=== PATIENT | female | born 1940 | race Caucasian/White ===

== ENCOUNTER → 2017-12-09 15:53 | Outpatient (CLI) | payer MEDICARE, OTHER, SELFPAY | PROVIDERS: Family Provider Family Medicine; PCP Family Medicine; Visit Provider Ophthalmology | DX: H18.891 Other specified disorders of cornea, right eye (principal) | CPT/HCPCS: 87252 ==

== ENCOUNTER → 2018-04-28 14:49 | Outpatient (CLI) | payer MEDICARE, OTHER, SELFPAY ==
[2018-04-28 16:01] LABS: Absolute Lymphocyte Count 1.95 X10^3/ul (0.83-4.51); Absolute Neutrophil Count 3.8 X10^3/uL (2.0-7.7); Basophil# 0.05 X10^3/uL; Basophil% 0.8 % (0-1); Eosinophil# 0.24 X10^3/uL; Eosinophils% 3.7 % (0-5); Hematocrit 42.2 % (37-47); Hemoglobin 13.7 g/dl (12.0-15.0); Lymphocyte # 1.95 X10^3/ul (4.0); Mean Corp Hgb Conc 32.5 g/gl (32-36); Mean Corpuscular Hgb 31.1 pg (27.0-32.0); Mean Corpuscular Volume 95.7 fL (81-99); Monocyte# 0.46 X10^3/uL; Monocyte% 7.1 % (0-10); Neutrophil # 3.78 X10^3/uL (2.7-7.7); Neutrophil % 58.1 % (47-70); Platelet Count 175 K/mm3 (150-450); RBC Distribution Width CV 14.1 % (11.6-14.6); RBC Distribution Width SD 47.4 fl (35.1-43.9); Red Blood Count 4.41 M/mm3 (4.2-5.4); White Blood Count 6.5 K/mm3 (4.4-11.0)
[2018-04-28 16:14] LABS: POSITIVE COUNT NO; POSITIVE DIFFERENTIAL NO; POSITIVE MORPHOLOGY NO
[2018-04-28 16:32] LABS: Anion Gap 4 (5-15); BUN 18 mg/dL (7-18); BUN/Creat Ratio 17.5 RATIO (10-20); Chloride 107 mmol/L (98-107); Creatinine, Serum 1.03 mg/dL (0.55-1.02); EST Glomerular Filtration Rate 55 mL/min (>60); Est Glom Filt Rate - Afr Amer 66 mL/min (>60); Glucose 99 mg/dL (74-106); Potassium 4.5 mmol/L (3.5-5.1); Sodium Level 142 mmol/L (136-145); Thyroid Stim Hormone (TSH) 1.42 uIU/mL (0.358-3.74)
== END ==
PROVIDERS: Family Provider Family Medicine; PCP Family Medicine; Visit Provider Internal Medicine Cardiovascular Disease
DX: I51.7 Cardiomegaly (principal)
CPT/HCPCS: 36415; 80048; 84443; 85025

== ENCOUNTER → 2019-03-06 | Outpatient (CLI) | payer MEDICARE, OTHER, SELFPAY ==
[2018-04-28 13:37] VITALS: BMI 25.4
[2019-03-06 18:05] LABS: Anion Gap 7 (5-15); BUN 15 mg/dL (7-18); BUN/Creat Ratio 13.3 RATIO (10-20); Calcium,Total 9.9 mg/dL (8.5-10.1); Chloride 105 mmol/L (98-107); Creatinine, Serum 1.13 mg/dL (0.55-1.02); EST Glomerular Filtration Rate 49 mL/min (>60); Est Glom Filt Rate - Afr Amer 59 mL/min (>60); Glucose 110 mg/dL (74-106); Potassium 4.6 mmol/L (3.5-5.1); Sodium Level 140 mmol/L (136-145)
== END | disposition home or self-care (01) ==
LOC: MFPLAB 16:32
PROVIDERS: Family Provider Family Medicine; PCP Family Medicine; Visit Provider Family Medicine
DX: I10 Essential (primary) hypertension (principal)
CPT/HCPCS: 36415; 80048

== ENCOUNTER 2019-03-18 02:22 | Emergency (ER) | payer MEDICARE, OTHER, SELFPAY ==
[2019-03-18 02:23] VITALS: BP 155/61; PULSE 87; RESP 20; TEMP 36.4; O2SAT 97; BMI 26.2
--- NOTE | 2019-03-18 02:43 | EKG12_ITS ---
Test Reason : PALPITATIONS Blood Pressure : / mmHG Vent. Rate : 082 BPM Atrial Rate : 082 BPM P-R Int : 166 ms QRS Dur : 094 ms QT Int : 404 ms P-R-T Axes : 052 006 022 degrees QTc Int : 472 ms Normal sinus rhythm Normal ECG Confirmed by DON DESHPANDE ([id number]), food expeditor [employer] LINK ([id number]) on 03/20/2019 1:53:59 PM Referred By: ELZBIETA Confirmed By:DON DESHPANDE
--- NOTE | 2019-03-18 02:43 | RAD_ITS ---
STUDY: X-RAY CHEST REASON FOR EXAM: Female, 79 years old. Chest pain TECHNIQUE: Single AP portable view of the chest. COMPARISON: None. FINDINGS: The lungs are clear and expanded. There is no demonstrated pleural abnormality. Normal size heart. Normal mediastinum and marlena. Normal visualized pulmonary arteries. Normal visualized aortic arch and descending thoracic aorta. There are diffuse degenerative changes of the visualized thoracic spine. There is degenerative osteoarthritis of the bilateral shoulders. There is no demonstrated abnormality of the visualized soft tissue structures of the upper abdomen. RAD/Chest 1 View (Portable) IMPRESSION: Degenerative changes, as described above. No demonstrated acute cardiopulmonary process. Electronically Signed: Susan Dotson, at 4:09 EDT Tel , Service support ,
[2019-03-18 02:51] LABS: Absolute Lymphocyte Count 4.03 X10^3/ul (0.83-4.51); Absolute Neutrophil Count 1.9 X10^3/uL (2.0-7.7); Basophil# 0.05 X10^3/uL; Basophil% 0.7 % (0-1); Eosinophil# 0.18 X10^3/uL; Eosinophils% 2.5 % (0-5); Hematocrit 46.2 % (37-47); Hemoglobin 15.6 g/dl (12.0-15.0); Lymphocyte # 4.03 X10^3/ul (4.0); Mean Corp Hgb Conc 33.8 g/gl (32-36); Mean Corpuscular Hgb 30.8 pg (27.0-32.0); Mean Corpuscular Volume 91.1 fL (81-99); Mean Platelet Vol. 10.4 fl (6.2-12.0); Monocyte# 0.85 X10^3/uL; Neutrophil # 1.94 X10^3/uL (2.7-7.7); Neutrophil % 27.5 % (47-70); Platelet Count 196 K/mm3 (150-450); RBC Distribution Width CV 14.7 % (11.6-14.6); RBC Distribution Width SD 48.1 fl (35.1-43.9); Red Blood Count 5.07 M/mm3 (4.2-5.4); White Blood Count 7.1 K/mm3 (4.4-11.0)
[2019-03-18 02:52] LABS: POSITIVE COUNT NO; POSITIVE DIFFERENTIAL NO; POSITIVE MORPHOLOGY NO
[2019-03-18 02:54] LABS: International Normalized Ratio 0.9; Prothrombin Time (Protime)PT. 12.4 SECONDS (11.7-14.9)
[2019-03-18 03:04] LABS: Anion Gap 7 (5-15); BUN 21 mg/dL (7-18); BUN/Creat Ratio 19.8 RATIO (10-20); Calcium,Total 9.1 mg/dL (8.5-10.1); Chloride 106 mmol/L (98-107); Creatinine, Serum 1.06 mg/dL (0.55-1.02); EST Glomerular Filtration Rate 53 mL/min (>60); Est Glom Filt Rate - Afr Amer 64 mL/min (>60); Estimated Creatinine Clearance 34.43 ml/min; Glucose 94 mg/dL (74-106); Potassium 3.6 mmol/L (3.5-5.1); Sodium Level 139 mmol/L (136-145)
[2019-03-18 03:24] LABS: Thyroid Stim Hormone (TSH) 7.66 uIU/mL (0.358-3.74)
--- NOTE | 2019-03-18 03:50 | ED.DCSUM_ITS ---
- ER Visit Summary Date of Service: 03/18/19 Chief Complaint: Palpitations History of Present Illness: The patient is a 79 F who presents with palpitations. She woke with the symptoms. It only lasted a few seconds. She has not had recurrence since that time. There was no associated chest pain shortness of breath lightheadedness or dizziness. She does have a history of prior similar symptoms. Physical Examination: Afebrile vitals unremarkable Moist mucous membranes Heart regular rate and rhythm Lungs clear Alert Test Results: EKG shows normal sinus rhythm at a rate of 82. Labs notable for TSH 7.66. CBC BMP INR troponin unremarkable. Chest x-ray on my review shows no acute process, radiology read pending. Emergency Department Course and Treatment: Patient presents with only a few seconds of palpitations without associated symptoms. She has not had recurrence of the symptoms. She has a history of prior similar symptoms. Her work-up as above is notable only for elevation of TSH. I do not believe this is related to her current symptoms as I would expect palpitations with hyperthyroidism and low TSH. Patient advised to follow-up with her primary care physician. She had previously discussed Holter monitoring. She was advised if her symptoms continue she may benefit from this. Treatment Plan: [] Disposition: Discharge Impression: Palpitations This note was generated with [employer] dictation software. It may contain incorrect words, spelling, and punctuation that were not noted in review of the chart prior to signing ED Disposition - Plan for ED Patient: Referrals: Fiona Feliciano MD [Primary Care Provider] -
--- NOTE | 2019-03-18 03:55 | ED.DEP ---
ED Disposition - Plan for ED Patient: Instructions: ED Palpitations Referrals: Fiona Feliciano MD [Primary Care Provider] -
[2019-03-18 04:24] VITALS: BP 126/78; PULSE 71; PULSE 74; RESP 15; RESP 22; O2SAT 94
== END 2019-03-18 04:28 | disposition home or self-care (01) ==
LOC: ED 03:04
PROVIDERS: Emergency Provider Emergency Medicine; Family Provider Family Medicine; PCP Family Medicine
DX: R00.2 Palpitations (principal); I10 Essential (primary) hypertension; E03.9 Hypothyroidism, unspecified; Z79.82 Long term (current) use of aspirin; Z79.899 Other long term (current) drug therapy
CPT/HCPCS: 71045; 80048; 84443; 84484; 85025; 85610; 93005; 99283; A4216

== ENCOUNTER → 2019-04-20 | Outpatient (CLI) | payer MEDICARE, OTHER, SELFPAY ==
[2019-04-20 10:37] LABS: Thyroid Stim Hormone (TSH) 0.28 uIU/mL (0.358-3.74)
== END | disposition home or self-care (01) ==
LOC: MTLAB 07:06
PROVIDERS: Family Provider Family Medicine; PCP Family Medicine; Referring Provider Family Medicine; Visit Provider Family Medicine
DX: E03.9 Hypothyroidism, unspecified (principal)
CPT/HCPCS: 36415; 84443

== ENCOUNTER → 2019-05-16 | Outpatient (CLI) | payer MEDICARE, OTHER, SELFPAY ==
[2019-05-02 12:07] VITALS: BMI 26.2
== END | disposition home or self-care (01) ==
LOC: MTLAB 14:20
PROVIDERS: Family Provider Family Medicine; PCP Family Medicine; Referring Provider Family Medicine; Visit Provider Family Medicine
DX: E03.9 Hypothyroidism, unspecified (principal)
CPT/HCPCS: 36415; 84443

== ENCOUNTER → 2020-06-07 | Outpatient (CLI) | payer MEDICARE, OTHER, SELFPAY ==
[2020-04-23 13:02] VITALS: BMI 25.8
[2020-06-07 12:44] LABS: Anion Gap 3 (5-15); BUN 28 mg/dL (7-18); BUN/Creat Ratio 21.5 RATIO (10-20); Calcium,Total 10.6 mg/dL (8.5-10.1); Chloride 105 mmol/L (98-107); Cholesterol 213 mg/dL (200); EST Glomerular Filtration Rate 42 mL/min (>60); Est Glom Filt Rate - Afr Amer 50 mL/min (>60); Glucose 101 mg/dL (74-106); High Density Lipoprotein 43 mg/dL; Sodium Level 139 mmol/L (136-145); T4 Total, Thyroxin 7.3 ug/dL (4.8-13.9); Thyroid Stim Hormone (TSH) 3.62 uIU/mL (0.358-3.74); Triglycerides 162 mg/dL; Very Low Density Lipoprotein 32 mg/dL (5-40)
== END | disposition home or self-care (01) ==
PROVIDERS: PCP Family Medicine; Referring Provider Family Medicine; Visit Provider Family Medicine
DX: I10 Essential (primary) hypertension (principal); E03.9 Hypothyroidism, unspecified
CPT/HCPCS: 36415; 80048; 80061; 84436; 84443

== ENCOUNTER → 2020-06-26 | Outpatient (CLI) | payer MEDICARE, OTHER, SELFPAY ==
[2020-04-23 13:02] VITALS: BMI 25.8
[2020-06-26 13:08] LABS: Calcium,Total 9.1 mg/dL (8.5-10.1)
== END | disposition home or self-care (01) ==
LOC: MFPLAB 10:27
PROVIDERS: PCP Family Medicine; Referring Provider Family Medicine; Visit Provider Family Medicine
DX: E83.52 Hypercalcemia (principal)
CPT/HCPCS: 36415; 82310

== ENCOUNTER → 2020-12-09 12:13 | Outpatient (CLI) | payer MEDICARE, OTHER, SELFPAY ==
[2020-04-23 13:02] VITALS: BMI 25.8
[2020-12-09 15:20] LABS: Absolute Lymphocyte Count 2.07 X10^3/uL (0.83-4.51); Absolute Neutrophil Count 2.9 X10^3/uL (2.0-7.7); Basophil# 0.05 X10^3/uL; Basophil% 0.9 % (0-1); Eosinophil# 0.16 X10^3/uL; Eosinophils% 2.8 % (0-5); Hematocrit 44.9 % (37-47); Lymphocyte # 2.07 X10^3/ul (4.0); Lymphocyte % 36.8 % (19-41); Mean Corp Hgb Conc 31.2 g/dL (32-36); Mean Corpuscular Hgb 29.4 pg (27.0-32.0); Mean Corpuscular Volume 94.1 fL (81-99); Mean Platelet Vol. 10.7 fl (6.2-12.0); Monocyte# 0.49 X10^3/uL; Monocyte% 8.7 % (0-10); NRBC Flagged by Analyzer 0 % (0-5); Neutrophil # 2.85 X10^3/uL (2.7-7.7); Neutrophil % 50.6 % (47-70); Platelet Count 179 K/mm3 (150-450); RBC Distribution Width CV 15.3 % (11.6-14.6); RBC Distribution Width SD 53.1 fl (35.1-43.9); Red Blood Count 4.77 M/mm3 (4.2-5.4); White Blood Count 5.6 K/mm3 (4.4-11.0)
[2020-12-09 15:59] LABS: ALB/GLOB Ratio 0.9 RATIO (0.9-2.4); AST(SGOT) 24 U/L (15-37); Alanine Aminotransfer ALT/SGPT 28 U/L (13-56); Albumin, Serum 3.7 g/dL (3.2-5.0); Alkaline Phosphatase 83 U/L (45-117); Anion Gap 7 (5-15); BUN 20 mg/dL (7-18); BUN/Creat Ratio 17.4 RATIO (10-20); Calcium,Total 9.2 mg/dL (8.5-10.1); Chloride 105 mmol/L (98-107); Creatinine, Serum 1.15 mg/dL (0.55-1.02); EST Glomerular Filtration Rate 48 mL/min (>60); Est Glom Filt Rate - Afr Amer 58 mL/min (>60); Globulin 4.2 g/dL (2.2-4.2); Glucose 95 mg/dL (74-106); Potassium 3.7 mmol/L (3.5-5.1); Protein, Total 7.9 g/dL (6.4-8.2); Sodium Level 140 mmol/L (136-145); Thyroid Stim Hormone (TSH) 3.29 uIU/mL (0.358-3.74)
== END ==
PROVIDERS: PCP Family Medicine; Referring Provider Family Medicine; Visit Provider Nurse Practitioner Adult Health
DX: R53.83 Other fatigue (principal)
CPT/HCPCS: 36415; 80053; 84443; 85025

== ENCOUNTER 2020-12-25 13:50 | Outpatient (RCR) | payer MEDICARE, OTHER, SELFPAY ==
[2020-04-23 13:02] VITALS: BMI 25.8
== END 2020-12-25 23:59 ==
LOC: IMMUN 13:50
PROVIDERS: PCP Family Medicine; Referring Provider Family Medicine; Visit Provider Family Medicine
DX: Z23 Encounter for immunization (principal)
CPT/HCPCS: 0011A; 0012A; 91301

== ENCOUNTER 2022-01-28 11:17 | Outpatient (CLI) | payer MEDICARE, OTHER, SELFPAY ==
--- NOTE | 2022-01-28 11:25 | BI_ITS ---
MAMMOGRAPHY - BILATERAL SCREENING REASON FOR EXAM: Female, 82 years old. Routine annual screening examination. PERTINENT HISTORY: Non-contributory. TECHNIQUE: Digital bilateral breast german (3D mammographic acquisition) in the CC and MLO projections. 2-D mediolateral oblique (MLO) and craniocaudad (CC) views of both breasts were obtained. CAD: Full Field Digital Mammography with Computer Added Detection was performed. COMPARISON: Comparison is made with prior abdomen examination dated 12/27/2020. FINDINGS: Breast Composition: There are scattered areas of fibroglandular density. There are no dominant masses or suspicious calcifications. No other significant abnormalities are identified. There has been no significant change since the prior study. BI/SCRN MAMM (CAD)W/GERMAN BILAT IMPRESSION: Stable bilateral screening mammogram. Yearly follow-up mammogram recommended. (A) ASSESSMENT CATEGORY: BIRADS Category 1: Negative. A letter regarding these results will be sent to the patient by the facility within 30 days. Approximately 10% of breast cancers are not detected by mammography. A normal mammogram should not delay biopsy of a clinically suspicious abnormality. [id number] Electronically Signed: Leonel Montemayor MD at 8:43 EDT ,
--- NOTE | 2022-01-28 11:28 | BD_ITS ---
STUDY: DUAL ENERGY X-RAY ABSORPTIOMETRY / DXA REASON FOR EXAM: Female, 82 years old. [id number]. The patient is postmenopausal. TECHNIQUE: Bone Mineral Density (BMD) measurements of lumbar spine and bilateral hips were obtained. COMPARISON: None. FINDINGS: Lumbar Spine (L1-L4): g/cm2 (1.091) / T-score (0.7) / Z-score (3.4) Findings are suggestive of normal bone density with a low fracture risk. Left Femur Total: g/cm2 (1.097) / T-score (1.3) / Z-score (3.6) Left Femoral Neck: g/cm2 (0.865) / T-score (0.1) / Z-score (2.6) Right Femur Total: g/cm2 (1.054) / T-score (0.9) / Z-score (3.2) Right Femoral Neck: g/cm2 (0.914) / T-score (0.6) / Z-score (3.1) BD/Dexa Bone Density Study IMPRESSION: The patient is considered normal as outlined below according to World Arturo Organization (WHO) criteria with a low fracture risk. Reference Information: The T-score is the number of standard deviations above or below the standard which is normal for young adults at their peak bone mineral density. The World Health Organization (WHO) interprets the T-scores as follows: Above -1 Normal bone density Between -1 and -2.5 Osteopenia Equal to / or below -2.5 Osteoporosis As a practical clinical guideline, osteopenia may be graded as follows: Mild -1 through -1.5 Moderate -1.6 through -2.0 Severe -2.1 through -2.4 The Z-score is the number of standard deviations above or below age-matched controls. A Z-score of less than -1.5 would be considered abnormal. References: 1. NIH Osteoporosis and Related Bone Diseases www osteo.org 2. International Society for Clinical Densitometry www iscd.org 3. National Osteoporosis Foundation www nof.org Electronically Signed: Leonel Montemayor MD at 12:39 EDT ,
== END 2022-01-28 23:59 | disposition home or self-care (01) ==
LOC: OPBD 11:22
PROVIDERS: PCP Family Medicine; Referring Provider Nurse Practitioner Family; Visit Provider Nurse Practitioner Family
DX: Z12.31 Encounter for screening mammogram for malignant neoplasm of breast (principal); Z13.820 Encounter for screening for osteoporosis; Z78.0 Asymptomatic menopausal state
CPT/HCPCS: 77063; 77067; 77080

== ENCOUNTER → 2022-03-30 | Outpatient (CLI) | payer MEDICARE, OTHER, SELFPAY ==
[2022-03-30 13:06] LABS: Anion Gap 4 (5-15); BUN 21 mg/dL (7-18); BUN/Creat Ratio 19.1 RATIO (10-20); Calcium,Total 9.6 mg/dL (8.5-10.1); Chloride 109 mmol/L (98-107); Cholesterol 219 mg/dL (200); EST Glomerular Filtration Rate 50 mL/min (>60); Est Glom Filt Rate - Afr Amer 61 mL/min (>60); Glucose 119 mg/dL (74-106); High Density Lipoprotein 39 mg/dL; Potassium 4.6 mmol/L (3.5-5.1); Sodium Level 141 mmol/L (136-145); T4 Total, Thyroxin 10.1 ug/dL (4.8-13.9); Thyroid Stim Hormone (TSH) 1.69 uIU/mL (0.358-3.74); Triglycerides 271 mg/dL; Very Low Density Lipoprotein 54 mg/dL (5-40)
== END | disposition home or self-care (01) ==
LOC: MFPLAB 10:00
PROVIDERS: PCP Family Medicine; Visit Provider Family Medicine
DX: I10 Essential (primary) hypertension (principal); E03.9 Hypothyroidism, unspecified
CPT/HCPCS: 36415; 80048; 80061; 84436; 84443

== ENCOUNTER → 2023-01-01 | Outpatient (CLI) | payer MEDICARE, OTHER, SELFPAY ==
[2023-01-01 15:39] LABS: Absolute Lymphocyte Count 1.92 X10^3/uL (0.83-4.51); Absolute Neutrophil Count 2.3 X10^3/uL (2.0-7.7); Basophil# 0.06 X10^3/uL; Basophil% 1.2 % (0-1); Eosinophil# 0.12 X10^3/uL; Eosinophils% 2.4 % (0-5); Hematocrit 42.3 % (37-47); Hemoglobin 13.5 g/dL (12.0-15.0); Lymphocyte # 1.92 X10^3/ul (0.83-4.51); Lymphocyte % 39.1 % (19-41); Mean Corp Hgb Conc 31.9 g/dL (32-36); Mean Corpuscular Hgb 30.3 pg (27.0-32.0); Mean Corpuscular Volume 94.8 fL (81-99); Mean Platelet Vol. 10.7 fl (6.2-12.0); Monocyte# 0.48 X10^3/uL; Monocyte% 9.8 % (0-10); NRBC Flagged by Analyzer 0 % (0-5); Neutrophil # 2.32 X10^3/uL (2.7-7.7); Neutrophil % 47.3 % (47-70); Platelet Count 202 K/mm3 (150-450); RBC Distribution Width SD 52.7 fl (35.1-43.9); Red Blood Count 4.46 M/mm3 (4.2-5.4); White Blood Count 4.9 K/mm3 (4.4-11.0)
[2023-01-01 15:52] LABS: ALB/GLOB Ratio 0.9 RATIO (0.9-2.4); AST(SGOT) 30 U/L (15-37); Alanine Aminotransfer ALT/SGPT 29 U/L (13-56); Albumin, Serum 3.7 g/dL (3.2-5.0); Alkaline Phosphatase 71 U/L (45-117); Anion Gap 5 (5-15); BUN 20 mg/dL (7-18); BUN/Creat Ratio 16.4 RATIO (10-20); Calcium,Total 9.4 mg/dL (8.5-10.1); Chloride 106 mmol/L (98-107); Creatinine, Serum 1.22 mg/dL (0.55-1.02); EST Glomerular Filtration Rate 45 mL/min (>60); Est Glom Filt Rate - Afr Amer 54 mL/min (>60); Globulin 3.9 g/dL (2.2-4.2); Glucose 103 mg/dL (74-106); Potassium 4.4 mmol/L (3.5-5.1); Protein, Total 7.6 g/dL (6.4-8.2); Sodium Level 140 mmol/L (136-145); Thyroid Stim Hormone (TSH) 2.39 uIU/mL (0.358-3.74)
== END | disposition home or self-care (01) ==
LOC: MTLAB 12:57
PROVIDERS: PCP Family Medicine; Referring Provider Family Medicine; Visit Provider Family Medicine
DX: R53.83 Other fatigue (principal)
CPT/HCPCS: 36415; 80053; 84443; 85025

== ENCOUNTER → 2023-01-07 | Outpatient (CLI) | payer MEDICARE, OTHER, SELFPAY ==
--- NOTE | 2023-01-07 08:38 | ECHOD_ITS ---
Reason For Study: Murmur Procedure This was a 2D Doppler, Color Flow transthoracic echocardiogram. Myocardial strain analysis was performed in this exam to aid in the assessment of cardiac function. Exam performed in department. Left Ventricle Normal LV size. Mild concentric left ventricular hypertrophy. Left ventricular systolic function is normal. The estimated ejection fraction is 65 %. Stage 1 diastolic dysfunction. No regional wall motion abnormalities noted. Right Ventricle Normal RV size. Normal systolic function. Mitral Valve There is mild to moderate mitral annular calcification. Mild (1+) eccentric mitral valve insufficiency. Tricuspid Valve Normal tricuspid valve. Mild tricuspid valve insufficiency. Pulmonary artery systolic pressure is 24 mmHg. Aortic Valve Trisinus/trileaflet aortic valve. Mild focal aortic valve calcification. Peak aortic valve gradient 25 mmHg. Mean aortic valve gradient 15 mmHg. Mild aortic stenosis. Pulmonic Valve Normal pulmonic valve. Great Vessels Normal aortic root. The pulmonary artery is normal size. Normal inferior vena cava. Pericardium/Pleural No pericardial effusion. MMode/2D Measurements & Calculations LVIDd: 3.4 cm IVSd: 1.5 cm LVOT diam: 2.1 cm LVIDs: 1.9 cm LVPWd: 1.2 cm LVOT area: 3.4 cm2 RVDd: 2.7 cm FS: 42.5 % Ao root diam: 3.4 cm LAV(MOD-bp): 42.0 ml LVAd ap4: 21.6 cm2 LAV(MOD-bp) Indexed: 24.6 ml/m2 LVLd ap4: 6.6 cm LAV(MOD-sp2): 53.2 ml EDV(MOD-sp4): 58.8 ml LAV(MOD-sp4): 31.0 ml EDV(sp4-el): 60.3 ml LVAs ap4: 10.6 cm2 LVLs ap4: 5.7 cm ESV(MOD-sp4): 17.2 ml ESV(sp4-el): 16.8 ml EF(MOD-sp4): 70.7 % EF(sp4-el): 72.2 % SV(MOD-sp4): 41.6 ml SV(MOD-sp2): 34.9 ml LVAd ap2: 20.7 cm2 LVLd ap2: 7.0 cm EDV(MOD-sp2): 53.5 ml EDV(sp2-el): 52.1 ml LVAs ap2: 11.0 cm2 LVLs ap2: 5.9 cm ESV(MOD-sp2): 18.6 ml ESV(sp2-el): 17.5 ml EF(MOD-sp2): 65.3 % SV(sp4-el): 43.5 ml LA A4 area: 13.2 cm2 LA dimension(2D): 3.6 cm RA A4 area: 10.6 cm2 Time Measurements MV dec time: 0.38 sec Doppler Measurements & Calculations MV E max claude: 58.4 cm/sec Lat Peak E' Claude: 3.6 cm/sec Med Peak E' Claude: 3.5 cm/sec MV A max claude: 112.2 cm/sec E/E' lat: 16.1 E/E' med: 16.9 MV E/A: 0.52 MV dec slope: 153.8 cm/sec2 Ao V2 max: 249.8 cm/sec LV V1 max: 88.5 cm/sec Ao max P.0 mmHg LV V1 max P.1 mmHg Ao V2 mean: 181.2 cm/sec LV V1 mean P.7 mmHg Ao mean P.6 mmHg LV V1 mean: 60.7 cm/sec Ao V2 VTI: 57.8 cm LV V1 VTI: 19.7 cm AV (velocity ratio): 0.34 TAMIE(I,D): 1.1 cm2 TAMIE(V,D): 1.2 cm2 SV(LVOT): 66.5 ml PA V2 max: 89.9 cm/sec TR max claude: 227.7 cm/sec TR max P.7 mmHg ECHO/Echo Complete Interpretation Summary Normal LV size. Left ventricular systolic function is normal. The estimated ejection fraction is 65 %. Mild concentric left ventricular hypertrophy. Stage 1 diastolic dysfunction. Mild focal aortic valve calcification. Mean aortic valve gradient 15 mmHg. Mild aortic stenosis. Ordering Physician: Anurag Last Referring Physician: Fiona Feliciano M.D. Performed By: Magdalena Aguiar RDCS
--- NOTE | 2023-01-07 12:37 | STRESSREP ---
Stress Test Report Pharmacologic myocardial perfusion stress test. 83-year-old lady with a history of chest pain Resting EKG demonstrates sinus rhythm with a rate of 77 bpm. Resting blood pressure is 140/90 mmHg. 0.4 mg of regadenoson was infused per usual protocol followed by rapid intravenous saline flush injection. Continuous EKG monitoring was performed. The maximum heart rate was 96 bpm which was 71% of max impacted heart rate the maximum workload was 1 metabolic equivalent. At rest there were no ST or T wave changes noted to suggest ischemia and at peak infusion nonspecific ST changes were noted which did not meet the criteria for ischemia. No clinical angina is noted. The final blood pressure was 132/80 mmHg. Myocardial perfusion protocol. 11.1 mCi of technetium 99m sestamibi was injected at rest. 0.4 mg of regadenoson was infused per usual protocol. At peak infusion 33.2 mCi of technetium 99m sestamibi was injected stress images were obtained stress and rest images were reconstructed and compared in the short axis vertical long and horizontal long axis. Gated images were also obtained. Perfusion SPECT analysis: Review of the stress images demonstrate normal uptake of tracer noted in all areas of the myocardium except for the mid anterior wall with reduced perfusion. The resting images similar demonstrated normal uptake of tracer noted in all areas of the myocardium, with some improvement noted in the mid anterior wall. The above is suggestive of mild to moderate amount of mid anterior ischemia. Gated SPECT analysis: The gated ejection fraction is 83%. Conclusion: Abnormal pharmacologic myocardial perfusion stress test with moderate mid anterior ischemia. Preserved ejection fraction.
== END | disposition home or self-care (01) ==
PROVIDERS: PCP Family Medicine; Visit Provider Family Medicine
DX: R07.89 Other chest pain (principal); R01.1 Cardiac murmur, unspecified
CPT/HCPCS: 78452; 93017; 93306; A9500; A4216; J2785

== ENCOUNTER 2023-01-18 15:29 | Observation (INO) | payer MEDICARE, OTHER, SELFPAY ==
[2023-01-15 11:10] VITALS: BMI 24.9
--- NOTE | 2023-01-18 08:54 | CL.D_ITS ---
Patient Name: SHAYY QUINONES Study Date: 01/18/2023 Performing: Anurag Last MD Ht: 63.5 inches 161.29 cm : 1940 Wt: 142.99 lbs 64.86 kg Age: 83 Gender: female BSA: 1.69 PROCEDURE(S) PERFORMED DC02-([id number])[facility] CLINICAL PROFILE AND INDICATIONS Indications: Suspected CAD Heart Failure: None Stress/Imaging Date: 01/07/23Stress Test with SPECT MPI: Positive High Risk CAD Presentations: Unstable angina. CONCLUSIONS Severe distal left main coronary artery disease, moderately severe mid LAD disease, and a high-grade right coronary artery stenosis and moderately severe proximal circumflex artery stenosis with preserved ejection fraction. RECOMMENDATIONS Surgery consult for coronary revascularization DESCRIPTION OF PROCEDURE The patient arrived to the procedure lab. The risks and benefits of the procedure as well as a full description of our services here and current unavailability of surgical backup were fully explained to the patient and/or their significant other prior to the catheterization. The Timeout was completed, verifying the correct patient and procedure. The patient's procedural site was prepped and draped in the usual fashion. Local anesthetic was given subcutaneously to right radial region with Lidocaine 2%. Using a modified Seldinger technique, arterial access was obtained via the right radial artery, a 6Fr sheath was inserted. Left Coronary Artery selective angiography was performed in multiple views using a 5 Fr. 4.0 [place] catheter. Right Coronary Artery selective angiography was then performed in multiple views using a 5 Fr. 4.0 [place] catheter.The arterial sheath was pulled and a TR Band was applied for hemostasis CORONARY ANGIOGRAPHY DOMINANCE: Right Dominant LEFT HEART ASSESSMENT Left Ventricular Ejection Fraction: by Echo 60 % Normal LV wall motion Normal Left Ventricular systolic function LEFT MAIN: Mild calcification, Distal 90% stenotic lesion noted LEFT ANTERIOR DESCENDING ARTERY: Mild calcification with mid 70% stenosis noted in the first diagonal vessel with a 70% stenotic lesion noted. CIRCUMFLEX ARTERY: Proximal 70% stenosis present in large first obtuse marginal branch with mild disease RIGHT CORONARY ARTERY: Mid 90% sequential stenotic lesions noted VALVE FINDINGS: Aortic Valve Calcification - mild Aortic Valve Stenosis - mild COMPLICATIONS No Complications PROCEDURE MEDICATIONS Fentanyl 50 mcg IV Versed 1 mg IV Versed 1 mg IV Oxygen: 2 L/min via nasal cannula Heparin given IA 01/18/2023 08:36:34 Verapamil 2.5mg, Ntg 100mcgs, 3000 units of Heparin given IA 01/18/2023 08:36:34 SUMMARY OF HEMODYNAMIC DATA Time AIR REST ECG 07:17:40 AO 98/58 (76) SA 08:38:43 AO 114/66 (87) 08:39:00 08:56:33 Signed By Anurag Last MD On 01/18/2023 09:50:54 Signed By Anurag Last MD On 01/18/2023 08:53:59 Anurag Last MD
[2023-01-18 15:20] VITALS: BP 135/77; PULSE 75; RESP 15; TEMP 36.5; O2SAT 99
[2023-01-18 15:35] VITALS: BMI 25.2
--- NOTE | 2023-01-18 18:44 | NURSING ---
This RN called report to CAROLIN Hauser At [facility].
[2023-01-18 21:30] VITALS: BP 140/68; PULSE 78; RESP 15; TEMP 36.9; O2SAT 96
[2023-01-18] MEDS: Pregabalin 50 MG Capsule 100 MG PO (21:36)
== END 2023-01-18 23:00 | disposition short-term general hospital (02) ==
LOC: CLSP 15:49 → PCU 15:49
PROVIDERS: Admitting Provider Internal Medicine Cardiovascular Disease; PCP Family Medicine; Referring Provider Internal Medicine Cardiovascular Disease; Visit Provider Internal Medicine Cardiovascular Disease
DX: I25.110 Atherosclerotic heart disease of native coronary artery with unstable angina pectoris (principal); I10 Essential (primary) hypertension; Z79.899 Other long term (current) drug therapy; Z79.82 Long term (current) use of aspirin; Z79.890 Hormone replacement therapy; E03.9 Hypothyroidism, unspecified; R94.39 Abnormal result of other cardiovascular function study; G62.9 Polyneuropathy, unspecified
CPT/HCPCS: 93454; 99152; 99153; 99221; J7040; C1769; C1894; G0378; Q9967

== ENCOUNTER 2023-01-31 07:28 | Emergency (ER) | payer MEDICARE, OTHER, SELFPAY ==
[2023-01-31 07:28] VITALS: BP 157/76; PULSE 94; RESP 18; TEMP 36.6; O2SAT 93; BMI 26.4
--- NOTE | 2023-01-31 07:38 | RAD_ITS ---
STUDY: X-RAY CHEST REASON FOR EXAM: Female, 83 years old. cp TECHNIQUE: Single AP portable view of the chest. COMPARISON: 03/18/2019 FINDINGS: Interval median sternotomy. The lungs are clear and expanded. Small bilateral pleural effusions with some bibasilar atelectasis There is moderate cardiac enlargement. Normal mediastinum and marlena. Normal visualized pulmonary arteries. Normal visualized aortic arch and descending thoracic aorta. Normal visualized thoracic spine. Normal visualized ribs, clavicles, and shoulders. There is no demonstrated abnormality of the visualized soft tissue structures of the upper abdomen. RAD/Chest 1 View (Portable) IMPRESSION: Small bilateral pleural effusions with some bibasilar atelectasis. Electronically Signed: Arnel Lomas MD at 8:08 EDT ,
--- NOTE | 2023-01-31 07:38 | EKG12_ITS ---
Test Reason : CP Blood Pressure : / mmHG Vent. Rate : 088 BPM Atrial Rate : 088 BPM P-R Int : 156 ms QRS Dur : 082 ms QT Int : 422 ms P-R-T Axes : 059 041 086 degrees QTc Int : 510 ms Sinus rhythm with frequent Premature ventricular complexes Possible Left atrial enlargement Low voltage QRS Nonspecific T wave abnormality Abnormal ECG Confirmed by TAYLOR PARISH, RADHA ([id number]), film editor supervisor [employer] LINK ([id number]) on 02/02/2023 8:30:37 AM Referred By: ZEE Confirmed By:RADHA VAZQUEZ MD
--- NOTE | 2023-01-31 07:42 | EDS_ITS ---
HPI History of Present Illness Chief Complaint: Chest Pain Informant: patient Onset/Context/Timing Onset: Today (Woke with symptoms) Quality: Positive for Pressure Location: Substernal Current Severity: Mild Maximum Severity: Moderate Narrative Narrative: Patient presents via EMS secondary to chest pain with some shortness of breath and weakness. Patient had cardiac bypass and aortic valve replacement 10 days ago at [facility]. She is currently home with family. Patient states she woke this morning around 5:30 AM with some chest pressure and shortness of breath and feeling generally weak. She states her symptoms are currently improving. She does voice concern about being taken off of her blood pressure medication. She is currently on aspirin but no other anticoagulants. [facility] Medical History (Updated 01/31/23 @ 11:[address] Tenisha Serrano MD) Abnormal stress test CAD (coronary artery disease) Essential (primary) hypertension Hypothyroidism Intermittent palpitations Left ventricular hypertrophy Neuropathy Home Medications aspirin 81 mg chewable tablet 81 mg PO DAILY@0800 01/22/17 [History Last Taken 01/18/23] pregabalin 100 mg capsule (Lyrica) 100 mg PO DAILY neuropathy 04/28/18 [History Last Taken Unknown] cyanocobalamin (vitamin B-12) 1,000 mcg capsule 1,000 mcg PO DAILY 05/02/19 [History Last Taken Unknown] levothyroxine 75 mcg tablet 75 mcg PO DAILY 04/23/20 [History Last Taken 01/18/23] losartan 50 mg tablet 50 mg PO DAILY . 04/23/20 [History Last Taken 01/18/23] multivitamin 1 cap PO DAILY 04/23/20 [History Last Taken Unknown] Allergy/AdvReac Type Severity Reaction Status Date / Time gabapentin Allergy Itching Verified 01/31/23 07:36 risedronate sodium AdvReac Severe chest pain Verified 01/31/23 07:36 [From Actonel] atorvastatin [From Lipitor] AdvReac Intermediate Myalgias Verified 01/31/23 07:36 Family History Father , age74 CAD (coronary artery disease) Mother , Age 67 Cancer Ovarian Cancer Brother Colon cancer Sister Endometrial cancer Surgical History Aortic valve replaced History of cholecystectomy History of D&C Hx of CABG Social History Smoking Status: Never smoker alcohol intake: never caffeine: Yes Type: coffee Number of servings: 1 ROS ROS ED Constitutional Constitutional ED: Denies chills or fever(s) Eyes Eyes: Denies change in vision or discharge from eye(s) ENT ENT ED: Denies discharge from eye(s), rhinorrhea or sore throat Cardiovascular Cardiovascular: Reports chest pain; Denies palpitations Respiratory/Chest Respiratory/Chest: Reports dyspnea; Denies cough Gastrointestinal Gastrointestinal: Denies abdominal pain, nausea or vomiting Genitourinary Genitourinary ED: Denies dysuria Musculoskeletal Musculoskeletal: Denies back pain or extremity pain Integumentary Denies Abrasions or rash Neurologic Neurologic: Reports weakness; Denies headache(s) Psychiatric Psychiatric: Denies anxiety or depression Allergic/Immunologic Allergic/Immunologic ED: Denies lip swelling or urticaria EXAM Physical Exam Const Vital Signs: 01/31/23 07:28 01/31/23 07:36 01/31/23 09:33 Temperature 97.9 F Temperature Source Oral Pulse Rate 94 85 Respiratory Rate 18 16 Respiratory Effort Normal Blood Pressure 157/76 H 129/82 H Blood Pressure Mean 103 97 Pulse Ox 93 93 Oxygen Delivery Method Room Air Room Air Positive well nourished and well developed General Appearance ED: well developed HEENT Reports normocephalic and head/scalp atraumatic Eyes PERRL and EOMs intact bilaterally Neck supple Chest Wall palpation of chest normal Chest Narrative: Healing midline surgical incision with surrounding ecchymosis. No sign of infection. Resp normal respiratory effort and clear to auscultation bilaterally Cardio regular rate and regular rhythm GI normal to inspection, nondistended, normoactive bowel sounds Palpation: soft Extremity normal to inspection Neuro oriented x3 and no sensory deficits noted Sensorium / Orientation: alert Motor Exam: strength 5/5 throughout Psych mental status grossly normal Heart Score History: Slightly/Non-Suspicious ECG: Normal Age: >/= 65 years Risk Factors: >/= 3 Risk Factors or History of CAD Troponin: >1 - <3 Normal Limit Score: 5 MDM MDM MDM Narrative Medical decision making narrative: Patient placed on lunchroom monitor. Labwork obtained to evaluate for leukocytosis, anemia, and electrolyte derangement. EKG obtained to evaluate for cardiac arrhythmia/ischemia. Chest x-ray obtained to evaluate for acute lung pathology, cardiac size, or mediastinal abnormality. History & Record Review Discussion w/independent historian: EMS personnel Additional record(s) reviewed:: Prior inpatient record and Prior outpatient record Lab Data Labs: Laboratory Results - last 24 hr 01/31/23 01/31/23 01/31/23 07:40 07:40 07:40 WBC 7.4 RBC 3.77 L Hgb 11.5 L Hct 36.1 L MCV 95.8 MCH 30.5 MCHC 31.9 L RDW Std Deviation 54.9 H RDW Coeff of Maxine 15.8 H Plt Count 284 MPV 9.6 Immature Gran % (Auto) 1.000 H Neut % (Auto) 65.1 Lymph % (Auto) 17.[address] % (Auto) 8.7 Eos % (Auto) 6.3 H Baso % (Auto) 1.1 H Absolute Neuts (auto) 4.8 Absolute Lymphs (auto) 1.31 Nucleated RBC % 0 D-Dimer Quant (PE/DVT) 6.76 H* Sodium 141 Potassium 3.3 L Chloride 108 H Carbon Dioxide 27.0 Anion Gap 6 BUN 16 Creatinine 0.97 Estim Creat Clear Calc 35.08 Est GFR (MDRD) Af Amer 70 Est GFR (MDRD) Non-Af 58 L BUN/Creatinine Ratio 16.5 Glucose 122 H Calcium 9.3 Troponin I High Sens 92 H 01/31/23 10:00 WBC RBC Hgb Hct MCV MCH MCHC RDW Std Deviation RDW Coeff of Maxine Plt Count MPV Immature Gran % (Auto) Neut % (Auto) Lymph % (Auto) [place] % (Auto) Eos % (Auto) Baso % (Auto) Absolute Neuts (auto) Absolute Lymphs (auto) Nucleated RBC % D-Dimer Quant (PE/DVT) Sodium Potassium Chloride Carbon Dioxide Anion Gap BUN Creatinine Estim Creat Clear Calc Est GFR (MDRD) Af Amer Est GFR (MDRD) Non-Af BUN/Creatinine Ratio Glucose Calcium Troponin I High Sens 87 H Radiography Chest X-Ray - ED: 1 View, Read by ED Physician and - (Small bilateral pleural effusions.) Diagnostic Testing: Clinical Impression(s) from Imaging Studies Chest X-Ray 01/31/23 07:38 IMPRESSION: Small bilateral pleural effusions with some bibasilar atelectasis. Electronically Signed: Arnel Lomas MD at 8:08 EDT , Chest CTA 01/31/23 08:22 IMPRESSION: 1. No CT evidence of pulmonary embolism. 2. Recent median sternotomy with postoperative changes and small hematoma subjacent to the manubrium. 3. Moderate pericardial effusion. 4. Moderate bilateral pleural effusions with bibasilar atelectasis. Electronically Signed: Arnel Lomas MD at 9:35 EDT , EKG Initial EKG: Attestation: I personally reviewed and interpreted this EKG as follows: Interpretation: Sinus Rhythm (Sinus 88 with no acute ischemia. Occasional PVCs.) Treatment and Re-Evaluation :: I was able to review the patient's discharge summary from [facility]. There is mention that her blood pressure medications were held at discharge because she had been hypotensive. It is anticipated that she will need to have a beta-daphne added as an outpatient at some point. Without any further intervention, patient's systolic blood pressure came down to 124. CBC reveals normal white count. Hemoglobin is 11.5. Chemistry studies reveal normal sodium with a potassium of 3.3. Renal function is normal. Initial troponin is 92 with 2-hour repeat 87. But this is all still elevated from her surgery. Her D-dimer is elevated at 6.76. Patient's chest x-ray per my interpretation reveals postoperative changes with small bilateral pleural effusions. Radiology interpretation is reviewed. CTA of the chest is obtained and reveals no evidence of pulmonary embolism. Test results are discussed with patient as well as daughter at bedside. They are reassured with these findings and will continue supportive care at home. I did recommend she keep a journal of her blood pressure readings and take this to her next appointment to determine if and when a beta-daphne needs to be added to her medication regimen. Return instructions are provided. Discharge Plan Triage Chief Complaint: Chest Pain ED Provider: Tenisha Serrano Dx/Rx/DC Orders Clinical Impression: Chest pain Instructions: ED Chest Pain, Uncertain Cause Prescriptions: No Action pregabalin [Lyrica] 100 mg capsule 100 mg PO DAILY cyanocobalamin (vitamin B-12) 1,000 mcg capsule 1,000 mcg PO DAILY losartan 50 mg tablet 50 mg PO DAILY Label Comments: TAKE 1 TABLET BY MOUTH DAILY levothyroxine 75 mcg tablet 75 mcg PO DAILY Label Comments: TAKE 1 TABLET BY MOUTH ONCE DAILY multivitamin capsule 1 cap PO DAILY Label Comments: Patient states she does not take anymore aspirin 81 MG tablet,chewable 81 mg PO DAILY@0800 Primary Care Provider: Fiona Feliciano Referrals: Fiona Feliciano MD [Primary Care Provider] - 1 Week Disposition Disposition: Home, Self Care
[2023-01-31 07:50] LABS: Absolute Lymphocyte Count 1.31 X10^3/uL (0.83-4.51); Absolute Neutrophil Count 4.8 X10^3/uL (2.0-7.7); Basophil# 0.08 X10^3/uL; Basophil% 1.1 % (0-1); Eosinophil# 0.46 X10^3/uL; Eosinophils% 6.3 % (0-5); Hematocrit 36.1 % (37-47); Hemoglobin 11.5 g/dL (12.0-15.0); Lymphocyte # 1.31 X10^3/ul (0.83-4.51); Lymphocyte % 17.8 % (19-41); Mean Corp Hgb Conc 31.9 g/dL (32-36); Mean Corpuscular Hgb 30.5 pg (27.0-32.0); Mean Corpuscular Volume 95.8 fL (81-99); Mean Platelet Vol. 9.6 fl (6.2-12.0); Monocyte# 0.64 X10^3/uL; Monocyte% 8.7 % (0-10); NRBC Flagged by Analyzer 0 % (0-5); Neutrophil % 65.1 % (47-70); Platelet Count 284 K/mm3 (150-450); RBC Distribution Width CV 15.8 % (11.6-14.6); RBC Distribution Width SD 54.9 fl (35.1-43.9); Red Blood Count 3.77 M/mm3 (4.2-5.4); White Blood Count 7.4 K/mm3 (4.4-11.0)
[2023-01-31 08:11] LABS: D-Dimer Quantitative (DVT/PE) 6.76 FEU/ug/m (0.27-0.49)
[2023-01-31 08:18] LABS: Anion Gap 6 (5-15); BUN 16 mg/dL (7-18); BUN/Creat Ratio 16.5 RATIO (10-20); Calcium,Total 9.3 mg/dL (8.5-10.1); Chloride 108 mmol/L (98-107); Creatinine, Serum 0.97 mg/dL (0.55-1.02); EST Glomerular Filtration Rate 58 mL/min (>60); Est Glom Filt Rate - Afr Amer 70 mL/min (>60); Estimated Creatinine Clearance 35.08 ml/min; Glucose 122 mg/dL (74-106); Potassium 3.3 mmol/L (3.5-5.1); Sodium Level 141 mmol/L (136-145); Troponin-I HS (w/2H Reflex) 92 pg/mL (3.0-54.0)
--- NOTE | 2023-01-31 08:22 | CT_ITS ---
STUDY: CTA CHEST REASON FOR EXAM: Female, 83 years old. pulmonary embolism RADIATION DOSAGE (If Supplied By Facility): CTDIvol = ( 7.78 ) mGy, DLP = ( 181.58 ) mGycm TECHNIQUE: The examination was performed with the intravenous administration of IV 100mL Isovue-370. Post-processing of the angiographic images was performed, with multiplanar reformation and 3D reconstruction. Individualized dose optimization techniques were used for this CT. COMPARISON: 01/22/2017, chest x-ray earlier today FINDINGS: Status post median sternotomy. Normal enhancement of the main pulmonary artery and right and left pulmonary arteries. Normal enhancement of the bilateral peripheral pulmonary arteries. There is no demonstrated pulmonary embolism. Normal thoracic aorta and visualized great vessels. There is no demonstrated aortic dissection. There is cardiomegaly. Moderate pericardial effusion. Stranding of the fat some fluid in a single bubble of air in the anterior mediastinum consistent with recent median sternotomy. 2 x 4 cm oval area of soft tissue attenuation in the anterior mediastinum subjacent to the manubrium likely consistent with a hematoma. Normal hilar regions. Normal visualized trachea and bronchi. The lungs are well expanded. Normal pulmonary parenchyma. Moderate bilateral pleural effusions with bibasilar atelectasis. Normal chest wall structures. Normal osseous structures. Normal visualized upper abdomen. CT/CTA Chest W/WO Contrast IMPRESSION: 1. No CT evidence of pulmonary embolism. 2. Recent median sternotomy with postoperative changes and small hematoma subjacent to the manubrium. 3. Moderate pericardial effusion. 4. Moderate bilateral pleural effusions with bibasilar atelectasis. Electronically Signed: Arnel Lomas MD at 9:35 EDT ,
[2023-01-31] MEDS: Potassium Chloride Oral Tablet 20 MEQ 40 MEQ PO (08:41)
[2023-01-31 09:33] VITALS: BP 129/82; PULSE 85; RESP 16; O2SAT 93
[2023-01-31 09:44] LABS: Reflex Troponin-HS? (from REC) Y
[2023-01-31 10:21] LABS: Troponin-I HS 87 pg/mL (3.0-54.0)
== END 2023-01-31 11:37 | disposition home or self-care (01) ==
PROVIDERS: Emergency Provider Emergency Medicine; PCP Family Medicine; Visit Provider Emergency Medicine
DX: R07.9 Chest pain, unspecified (principal); I10 Essential (primary) hypertension; R06.02 Shortness of breath; I25.10 Atherosclerotic heart disease of native coronary artery without angina pectoris; Z95.1 Presence of aortocoronary bypass graft; Z95.2 Presence of prosthetic heart valve; Z98.890 Other specified postprocedural states
CPT/HCPCS: 71045; 71275; 80048; 84484; 85025; 85379; 93005; 99285; Q9967; A4216

== ENCOUNTER 2023-02-04 23:24 | Emergency (ER) | payer MEDICARE, OTHER, SELFPAY ==
[2023-02-04 23:25] VITALS: BP 164/88; PULSE 85; RESP 20; TEMP 36.5; O2SAT 92; BMI 25.5
--- NOTE | 2023-02-05 00:37 | EKG12_ITS ---
Test Reason : DYSRHYTHMIA Blood Pressure : / mmHG Vent. Rate : 083 BPM Atrial Rate : 083 BPM P-R Int : 166 ms QRS Dur : 084 ms QT Int : 418 ms P-R-T Axes : 060 041 087 degrees QTc Int : 491 ms Normal sinus rhythm Nonspecific T wave abnormality Prolonged QT Abnormal ECG Confirmed by KRISTYN PARISH, PROSPER ([id number]), school photograph editor FLORENTINO RIVERA ([id number]) on 02/08/2023 10:55:13 AM Referred By: AYANNA Confirmed By:ALCIDES SIMONS MD
--- NOTE | 2023-02-05 00:37 | RAD_ITS ---
INDICATION: chest pain EXAMINATION/TECHNIQUE: X-RAY - XR Chest 1 View COMPARISON: None. FINDINGS: LINES/DEVICES: None. LUNGS: No consolidation. No pneumothorax. Subsegmental atelectases in the lung bases. Small bilateral pleural effusions. MEDIASTINUM AND CARDIOVASCULAR STRUCTURES: Cardiac silhouette not enlarged. Central airways and mediastinal contour are unremarkable. BONES AND SOFT TISSUES: Unremarkable. RAD/Chest 1 View (Portable) IMPRESSION: Subsegmental atelectases in the lung bases. Small bilateral pleural effusions. Electronically Signed: Susan Dotson MD at 1:21 EDT ,
[2023-02-05] MEDS: 0.9% Normal Saline 1,000 ML 150 ML IV (00:50)
[2023-02-05 00:57] LABS: Absolute Lymphocyte Count 1.35 X10^3/uL (0.83-4.51); Absolute Neutrophil Count 5.5 X10^3/uL (2.0-7.7); Basophil# 0.12 X10^3/uL; Basophil% 1.5 % (0-1); Eosinophil# 0.49 X10^3/uL; Hematocrit 32.2 % (37-47); Hemoglobin 10.2 g/dL (12.0-15.0); Lymphocyte # 1.35 X10^3/ul (0.83-4.51); Lymphocyte % 16.6 % (19-41); Mean Corp Hgb Conc 31.7 g/dL (32-36); Mean Corpuscular Hgb 30.8 pg (27.0-32.0); Mean Corpuscular Volume 97.3 fL (81-99); Mean Platelet Vol. 9.9 fl (6.2-12.0); Monocyte# 0.67 X10^3/uL; Monocyte% 8.3 % (0-10); NRBC Flagged by Analyzer 0 % (0-5); Neutrophil # 5.45 X10^3/uL (2.7-7.7); Neutrophil % 67.1 % (47-70); Platelet Count 370 K/mm3 (150-450); RBC Distribution Width CV 15.9 % (11.6-14.6); RBC Distribution Width SD 56.1 fl (35.1-43.9); Red Blood Count 3.31 M/mm3 (4.2-5.4); White Blood Count 8.1 K/mm3 (4.4-11.0)
[2023-02-05 01:16] LABS: Anion Gap 6 (5-15); BUN 18 mg/dL (7-18); Calcium,Total 9.4 mg/dL (8.5-10.1); Chloride 109 mmol/L (98-107); Creatinine, Serum 1.06 mg/dL (0.55-1.02); EST Glomerular Filtration Rate 52 mL/min (>60); Est Glom Filt Rate - Afr Amer 63 mL/min (>60); Glucose 123 mg/dL (74-106); Potassium 3.8 mmol/L (3.5-5.1); Sodium Level 142 mmol/L (136-145); Troponin-I HS 48 pg/mL (3.0-54.0)
[2023-02-05 01:20] LABS: BNP,B-Type NATRIURETIC PEPTIDE 594.9 pg/mL (0-100)
--- NOTE | 2023-02-05 01:25 | ED.VIS.CHEST ---
HPI History of Present Illness Chief Complaint: Shortness of Breath Informant: patient and family Onset/Context/Timing Onset: Yesterday Narrative Narrative: Episodes of chest pressure, she had it for 2 or 3 hours about 24 hours ago or so, then another episode earlier today, and tonight it has been there for 4 or 5 hours, not nearly as severe now as it was earlier. Pressure radiating straight through to her back, substernal in nature, no other radiation or arm/jaw discomfort. Some lightheadedness and shortness of breath associated with this, those improved/resolved along with the chest discomfort whenever it would improve. Right now her discomfort is mild but still there. She does not have any of the other symptoms. She denies any leg pain or swelling. She had a four-way CABG earlier this month, and an aortic valve replacement, bovine. She takes aspirin no anticoagulants or other antiplatelets. They also added Crestor, she has been having hayfever symptoms and some muscle aches and family suggest may be this is part of the issue because she has had issues with statins in the past. She states that she was on a blood pressure medication prior to the surgery but they had her discontinue that she cannot remember what it was, it appears to be losartan according to her records, which I reviewed. [facility] Medical History Abnormal stress test CAD (coronary artery disease) Essential (primary) hypertension Hypothyroidism Intermittent palpitations Left ventricular hypertrophy Neuropathy Home Medications aspirin 81 mg chewable tablet 324 mg PO DAILY@0800 01/22/17 [History Last Taken 01/18/23] pregabalin 100 mg capsule (Lyrica) 100 mg PO DAILY neuropathy 04/28/18 [History Last Taken Unknown] levothyroxine 75 mcg tablet 75 mcg PO DAILY 04/23/20 [History Last Taken 01/18/23] multivitamin 1 cap PO DAILY 04/23/20 [History Last Taken Unknown] rosuvastatin 5 mg tablet 5 mg PO DAILY 02/05/23 [History Last Taken Unknown] Allergy/AdvReac Type Severity Reaction Status Date / Time gabapentin Allergy Itching Verified 02/04/23 23:33 risedronate sodium AdvReac Severe chest pain Verified 02/04/23 23:33 [From Actonel] atorvastatin [From Lipitor] AdvReac Intermediate Myalgias Verified 02/04/23 23:33 Family History Father , age74 CAD (coronary artery disease) Mother , Age 67 Cancer Ovarian Cancer Brother Colon cancer Sister Endometrial cancer Surgical History Aortic valve replaced History of cholecystectomy History of D&C Hx of CABG Social History Smoking Status: Never smoker alcohol intake: never caffeine: Yes Type: coffee Number of servings: 1 ROS ROS ED Constitutional Constitutional ED: Denies chills or fever(s) Eyes Eyes: Denies change in vision or diplopia ENT ENT ED: Reports as per HPI, nasal congestion and rhinorrhea; Denies ear pain or sore throat Cardiovascular Cardiovascular: Reports chest pain and lightheadedness; Denies palpitations or syncope Respiratory/Chest Respiratory/Chest: Reports dyspnea; Denies cough Gastrointestinal Gastrointestinal: Denies abdominal pain, diarrhea, nausea or vomiting Genitourinary Genitourinary ED: Denies dysuria or hematuria Musculoskeletal Musculoskeletal: Reports back pain and myalgias; Denies neck pain Integumentary Denies abscess or rash Neurologic Neurologic: Denies headache(s), paresthesias or weakness Psychiatric Psychiatric: Denies anxiety or suicidal thoughts EXAM Physical Exam Const Vital Signs: 02/04/23 23:25 02/05/23 00:09 02/05/23 00:53 Temperature 97.7 F L Temperature Source Oral Pulse Rate 85 Respiratory Rate 20 H Respiratory Effort Normal Non-Labored Respiratory Depth Normal Respiratory Pattern Normal Blood Pressure 164/88 H Blood Pressure Mean 113 Pulse Ox 92 Oxygen Delivery Method Room Air Room Air Room Air 02/05/23 01:41 Temperature Temperature Source Pulse Rate 82 Respiratory Rate 16 Respiratory Effort Respiratory Depth Respiratory Pattern Blood Pressure Blood Pressure Mean Pulse Ox 98 Oxygen Delivery Method Room Air Positive well nourished and well developed Constitutional Narrative: Well-appearing in no distress, conversive in full sentences without difficulty General Appearance ED: well developed and NAD HEENT Reports moist mucous membranes normocephalic and atraumatic Eyes PERRL and EOMs intact bilaterally Neck full ROM and supple Resp normal respiratory effort and clear to auscultation bilaterally Cardio regular rate and regular rhythm Cardio Narrative: Soft systolic ejection murmur Peripheral Pulses: pulses 2+ throughout and radial pulses present bilateral 2+ GI non-tender and non-distended Auscultation: normoactive bowel sounds Palpation: soft Back/Spine no CVA tenderness General Back: other FROM Extremity normal to inspection General Extremety ED: Negative for edema, pulses abnormal or tenderness General Extremity: Negative for edema or pulses abnormal Neuro oriented x3, CN's II-XII intact bilaterally and no sensory deficits noted Sensorium / Orientation: awake and alert Motor Exam: strength 5/5 throughout Psych mental status grossly normal Skin no rashes or lesions noted and no wounds Heart Score History: Moderately Suspicious ECG: Nonspecific Repolarization Age: >/= 65 years Risk Factors: >/= 3 Risk Factors or History of CAD Troponin: </= Normal Limit Score: 6 MDM MDM MDM Narrative Medical decision making narrative: Patient had her aspirin earlier today, so further dosing of that was held. She was offered nitroglycerin, but by the time the nurses offered it to her her discomfort was resolved. She remained asymptomatic for the rest of her ED stay. Work-up shows a troponin within normal limits at 48 after 5 or 6 hours of discomfort, a BNP that is elevated at around 600, with no prior measurements to compare this to. X-ray does not show acute CHF on my interpretation, radiology in agreement. She is ambulatory without discomfort. Discussed all this with cardiology on-call, Dr. Alfaro. He advised getting a delta troponin, this was obtained, the second 1 was more than 2 hours after the initial 1, and actually went down to 46. He recommends having the patient follow-up closely as an outpatient without changing any of her medications right now we discussed her vital signs patient is comfortable with that plan and feeling well and asymptomatic at this time. History & Record Review Discussion w/independent historian: Patient and Family Additional record(s) reviewed:: Prior outpatient record (Echocardiogram 01/07/2023, stage I diastolic dysfunction EF 65%, mild concentric LVH; prior EKG 01/31/2023; also reviewed recent cardiology office visit 01/15/2023) and Prior labs Lab Data Attestation: I reviewed the patient's lab results. Labs: Laboratory Results - last 24 hr 02/05/23 02/05/23 02/05/23 00:50 00:50 00:50 WBC 8.1 RBC 3.31 L Hgb 10.2 L Hct 32.2 L MCV 97.3 MCH 30.8 MCHC 31.7 L RDW Std Deviation 56.1 H RDW Coeff of Maxine 15.9 H Plt Count 370 MPV 9.9 Immature Gran % (Auto) 0.500 Neut % (Auto) 67.1 Lymph % (Auto) 16.6 L [place] % (Auto) 8.3 Eos % (Auto) 6.0 H Baso % (Auto) 1.5 H Absolute Neuts (auto) 5.5 Absolute Lymphs (auto) 1.35 Nucleated RBC % 0 Sodium 142 Potassium 3.8 Chloride 109 H Carbon Dioxide 27.0 Anion Gap 6 BUN 18 Creatinine 1.06 H Estim Creat Clear Calc 32.10 Est GFR (MDRD) Af Amer 63 Est GFR (MDRD) Non-Af 52 L BUN/Creatinine Ratio 17.0 Glucose 123 H Calcium 9.4 Total Creatine Kinase Troponin I High Sens 48 B-Natriuretic Peptide 594.9 H 02/05/23 02/05/23 00:50 02:15 WBC RBC Hgb Hct MCV MCH MCHC RDW Std Deviation RDW Coeff of Maxine Plt Count MPV Immature Gran % (Auto) Neut % (Auto) Lymph % (Auto) [place] % (Auto) Eos % (Auto) Baso % (Auto) Absolute Neuts (auto) Absolute Lymphs (auto) Nucleated RBC % Sodium Potassium Chloride Carbon Dioxide Anion Gap BUN Creatinine Estim Creat Clear Calc Est GFR (MDRD) Af Amer Est GFR (MDRD) Non-Af BUN/Creatinine Ratio Glucose Calcium Total Creatine Kinase 69 Troponin I High Sens 46 B-Natriuretic Peptide Radiography Chest X-Ray - ED: 1 View, Read by ED Physician, Read by Radiologist, No Acute Disease and No Infiltrates Diagnostic Testing: Clinical Impression(s) from Imaging Studies Chest X-Ray 02/05/23 00:37 IMPRESSION: Subsegmental atelectases in the lung bases. Small bilateral pleural effusions. Electronically Signed: Susan Dotson MD at 1:21 EDT , Rhythm Strip Rhythm Strip: Sinus Rhythm Rate: 85 Ectopy: None EKG Initial EKG: Attestation: I personally reviewed and interpreted this EKG as follows: Interpretation: Sinus Rhythm, No Acute Injury Pattern and Non-Specific ST Changes (T wave flattening inferiorly and lateral precordial leads; no ST elevation/depressions) Prior EKG tracings: available for review (01/31/23) Prior: Unchanged Management Discussion w/another healthcare provider: Certified Marine Mechanic (Cardiology, Dr. Alfaro) Discharge Plan Triage Chief Complaint: Shortness of Breath ED Provider: Allan Machuca Dx/Rx/DC Orders Clinical Impression: Chest pain, unspecified Instructions: ED Chest Pain, Uncertain Cause Prescriptions: No Action pregabalin [Lyrica] 100 mg capsule 100 mg PO DAILY levothyroxine 75 mcg tablet 75 mcg PO DAILY Label Comments: TAKE 1 TABLET BY MOUTH ONCE DAILY multivitamin capsule 1 cap PO DAILY Label Comments: Patient states she does not take anymore aspirin 81 MG tablet,chewable 324 mg PO DAILY@0800 rosuvastatin 5 mg tablet 5 mg PO DAILY Primary Care Provider: Fiona Feliciano Referrals: Fiona Feliciano MD [Primary Care Provider] - Anurag Last MD [Med Staff - Active Staff] - As soon as possible (call for appt) Disposition Disposition: Home, Self Care
[2023-02-05 01:41] VITALS: PULSE 82; RESP 16; O2SAT 98
[2023-02-05 02:10] LABS: CPK Total, Creatine Kinase 69 U/L (26-192)
[2023-02-05 02:34] LABS: Troponin-I HS 46 pg/mL (3.0-54.0)
[2023-02-05 02:53] VITALS: BP 152/60; PULSE 80; RESP 16; O2SAT 98
== END 2023-02-05 02:59 | disposition home or self-care (01) ==
PROVIDERS: Emergency Provider Emergency Medicine; PCP Family Medicine; Visit Provider Emergency Medicine
DX: R07.9 Chest pain, unspecified (principal); R06.02 Shortness of breath; I25.10 Atherosclerotic heart disease of native coronary artery without angina pectoris; I10 Essential (primary) hypertension; Z95.1 Presence of aortocoronary bypass graft; Z79.82 Long term (current) use of aspirin; E03.9 Hypothyroidism, unspecified; Z79.890 Hormone replacement therapy
CPT/HCPCS: 71045; 80048; 82550; 83880; 84484; 85025; 93005; 96360; 96361; 99285; J7030; A4216

== ENCOUNTER 2023-03-03 10:30 | Outpatient (RCR) | payer MEDICARE, OTHER, SELFPAY ==
[2023-02-24 10:35] VITALS: BP 148/81; PULSE 99; RESP 18; TEMP 36.1
--- NOTE | 2023-02-24 11:08 | PCM.WC.HP ---
History of Present Illness Date of Service: 02/24/23 Chief Complaint: Follow-up on a open wound left lower leg in the calf History of Wound: 83-year-old female that had open heart surgery in January quadruple bypass. The day after surgery the spot of a white bubble showed up the next day. Denies any pain. Then it turned to like a black eschar. Was seen by her family doctor who had her soaking it with Joann soap. They also had tried putting an Neosporin ointment on it. [facility] Medical History Abnormal stress test CAD (coronary artery disease) Essential (primary) hypertension Hyperlipidemia Hypothyroidism Intermittent palpitations Left ventricular hypertrophy Neuropathy Home Medications aspirin 81 mg chewable tablet 324 mg PO DAILY@0800 01/22/17 [History Last Taken 01/18/23] pregabalin 100 mg capsule (Lyrica) 100 mg PO DAILY neuropathy 04/28/18 [History Last Taken Unknown] levothyroxine 75 mcg tablet 75 mcg PO DAILY 04/23/20 [History Last Taken 01/18/23] losartan 50 mg tablet 50 mg PO DAILY 02/05/23 [History Last Taken Unknown] Allergy/AdvReac Type Severity Reaction Status Date / Time gabapentin Allergy Itching Verified 02/08/23 15:02 risedronate sodium AdvReac Severe chest pain Verified 02/08/23 15:02 [From Actonel] rosuvastatin AdvReac Severe SOB, Verified 02/08/23 15:02 myalgias, chest pain, leg cramps atorvastatin [From Lipitor] AdvReac Intermediate Myalgias Verified 02/08/23 15:02 Family History Father , age74 CAD (coronary artery disease) Mother , Age 67 Cancer Ovarian Cancer Brother Colon cancer Sister Endometrial cancer Surgical History Aortic valve replaced History of aortic valve replacement with bioprosthetic valve History of cholecystectomy History of D&C Hx of CABG Social History Smoking Status: Never smoker alcohol intake: never caffeine: Yes Type: coffee Number of servings: 1 ROS Constitutional Constitutional: Reports systems reviewed and no addt'l complaints, except as documented Eyes Eyes: Reports systems reviewed and no addt'l complaints, except as documented ENT HEENT: Reports systems reviewed and no addt'l complaints, except as documented Cardiovascular Cardiovascular: Reports systems reviewed and no addt'l complaints, except as documented Respiratory/Chest Respiratory/Chest: Reports systems reviewed and no addt'l complaints, except as documented Gastrointestinal Gastrointestinal: Reports systems reviewed and no addt'l complaints, except as documented Genitourinary Genitourinary: Reports systems reviewed and no addt'l complaints, except as documented Musculoskeletal Musculoskeletal: Reports systems reviewed and no addt'l complaints, except as documented Integumentary Integumentary: Reports wounds and other Details: Eschar covered wound left medial calf Neurologic Neurologic: Reports systems reviewed and no addt'l complaints, except as documented Psychiatric Psychiatric: Reports systems reviewed and no addt'l complaints, except as documented Endocrine Endocrinology: Reports systems reviewed and no addt'l complaints, except as documented Hematologic/Lymphatic Hematologic/Lymphatic: Reports systems reviewed and no addt'l complaints, except as documented Allergic/Immunologic Allergic/Immunologic: Reports systems reviewed and no addt'l complaints, except as documented Vital Signs Vital Signs Vital Signs: 02/24/23 10:35 Temperature 97 F L Temperature Source Temporal Pulse Rate 99 Respiratory Rate 18 Blood Pressure 148/81 H Blood Pressure Mean 103 Blood Pressure Source Monitor Blood Pressure Position Semi-Fowlers Blood Pressure Location Left Arm Physical Exam Const oriented x3 General Appearance: cooperative Exam Limitations: no limitations HEENT normocephalic Face and Sinus: normal facial exam Eyes General Eye: normal appearance of both eyes Neck full ROM General: normal visual inspection Resp normal respiratory effort Effort and Inspection: able to speak in complete sentences Auscultation: clear to auscultation bilaterally Cardio regular rate and regular rhythm Palpation: normal PMI Rate: regular rate Rhythm: regular rhythm Back/Spine Cervical Spine: cervical ROM normal Extremity normal to inspection Extremity Narrative: Left lower leg slightly swollen than right and has the wound about mid calf General Extremity: normal exam except as noted Skin Wounds: wounds noted Wound Narrative: Open wound left lower mid calf with eschar deroofed to an open wound with depth Neuro oriented x3 Psych Appearance: grossly normal Speech: normal speech Thought Content: normal thought content Judgement: judgement good Debridement Note Debridement Note Post-Debridement Measurements and Additional Note: Post-Debridement Measurements/Treatment - Nurse 1 - General Ulcer Assessment Start: 02/24/23 10:35 Freq: Status: Active Protocol: JOCELYN Activity Type Activity Date Activity User E-sign Co-sign Detail Recorded Client Recorded Date Recorded By Document 02/24/23 10:35 RB [id number] 02/24/23 10:41 RB 02/24/23 10:35 - Today's Visit Information Type of service Initial Visit Arrival Mode Ambulatory Transfer Assistance None Patient Identification Verified (Name & Yes ) Patient Requires Transmission-Based No Precautions Vital Signs Temperature (97.8 F-99.1 F) 97 F L Temperature Source Temporal Pulse Rate (60-100) 99 Pulse Location Monitor Respiratory Rate (12-18) 18 Respiratory rate source Observation Blood Pressure (90/60-120/80) 148/81 H Blood Pressure Mean 103 Source Monitor Position Semi-Fowlers Blood Pressure Location Left Arm History Since Last Visit- (Skip if this is Patient's initial visit) Have you changed medications since your No last visit? Any new allergies or adverse reactions No Had a fall/change in ADL's that may No increase risk of falls Signs or symptoms of abuse and/or No neglect since last visit Have you been in the hospital since your No last visit? Has dressing in place as prescribed Yes Has compression in place as prescribed No Has offloadiing in place as prescribed No Experienced any changes in pain level or No management Pain Scale: 0-10 Numeric Is Patient Pain Free? Yes Neuropathy Assessment Feet - Top Side and Bottom <Entered> (a) Communication Assessment Preferred language Syriac Trust Manager Required No Able to Read Yes Able to Write Yes Communication Tools None Caregiver Communication Skills No Impairment Impairment Right Hearing Abillity Normal Left Hearing Abillity Normal Visual Assistive Devices Glasses Teaching Assessment Preferences Verbal,Written, Demonstration Readiness To Learn Excellent Willingness to Engage in Self Management High Activies Readiness to Engage in Self Management High Activities Anxiety Level Calm Cooperation Cooperative Perception Coherent Interest in Health Problem Asks Questions Education Importance Acknowledges Need Does Patient Smoke tobacco or other No substances Smoking Status Never smoker Is Patient Diabetic No Functional Assessment Recent Decline in Ability to Perform Denies Any Declines Assistive Device With Patient No Culture/Denominational/Grinding Machine Tender Cultural/Denominational Needs that may affect No Treatment Plan Would you allow our hospital millinery blocker to No meet you for the purpose of spiritual/ emotional support? Grinding Machine Tender to contact place of methodist No (a) 1 - + throughout WC - Nurse 1 - General Ulcer Measurement Start: 02/24/23 10:35 Freq: Status: Active Protocol: Activity Type Activity Date Activity User E-sign Co-sign Detail Recorded Client Recorded Date Recorded By Document 02/24/23 10:35 RB [id number] 02/24/23 10:41 RB 02/24/23 10:35 Wound Center Nurse 1 LLE medial -Combined with other wound No -Current Size (cm) - Length 1.2 -Current Size (cm) - Width 0.5 -Current Size (cm) - Depth 0.2 -Total Square Cm 0.60 -Photo Taken Yes -Tunneling No -Undermining/Tunneling No -Circular Undermining No -Exudate Amt None Present -Wound Margin Distinct, Outline Attached -Granulation Amt Medium (34-66%) -Granulation Quality [place] -Slough/Fibrin Yes -Necrosis Amt Medium (34-66%) -Necrotic Tissue Type Adherent Slough -Structure Exposed N/A -Texture (Jody-wound Skin Appearance) Assessed -Moisture (Jody-wound Skin Appearance) Assessed -Color (Jody-wound Skin Appearance) Assessed -Temperature (Jody-wound Skin No Abnormality Appearance) (Pt Warm) -Tenderness on Palpation (Jody-wound No Skin Appearance) -Ulcer Cleansing Wound Cleanser -Foul Odor after Cleansing No -Anesthetic Used 5% Lidocaine Gel Lower Limb Edema Present Yes Right Calf (cm) 33 Right Ankle (cm) 18.2 Left Calf (cm) 33.2 Left Ankle (cm) 20.5 WC - Nurse 2 - General Ulcer CM Notes Start: 02/24/23 10:35 Freq: Status: Active Protocol: Activity Type Activity Date Activity User E-sign Co-sign Detail Recorded Client Recorded Date Recorded By Document 02/24/23 10:51 MW [id number] 02/24/23 10:57 MW 02/24/23 10:51 Wound Center Nurse 2 LLE medial -Time 10:51 -Correct Patient Yes -Correct Side, Site, Position Yes -Correct Procedure Yes -Procedure Performed Yes -Type of Procedure Debridement -Clinical Debridement Subcutaneous -Tissue Removed Subcutaneous -Post Debridement (cm) - Length 1.2 -Post Debridement (cm) - Width 0.8 -Post Debridement (cm) - Depth 0.4 -Total Square (Post) (cm) 0.96 -Area of Debridement (cm) - Length 1.2 -Area of Debridement (cm) - Width 0.8 -Total Square (Area) (cm) 0.96 -Tunneling No -Undermining/Tunneling No -Circular Undermining No -Wound/Ulcer Outcome Not Healed -Ulcer Cleansing Rinsed/ Irrigated with Saline -Foul Odor after Cleansing No -Bioengineered Tissue No -Bleeding Controlled with Pressure -Treatment Response Procedure Tolerated Well -Offloading No -Debridement - Subq, 1st 20sq cm Yes Pain Scale: 0-10 Numeric Is Patient Pain Free? Yes Assessment/Plan Assessment/Plan (1) Infected wound: CODE(S): T14.8XXA - Other injury of unspecified body region, initial encounter; L08.9 - Local infection of the skin and subcutaneous tissue, unspecified (2) Nonhealing nonsurgical wound: CODE(S): T14.8XXA - Other injury of unspecified body region, initial encounter PLAN: Wash wound with Hibiclens or antibacterial soap such as Dial. Apply Aquacel extra to wound base moistened with Adaptic over top and a foam dressing daily Patient to wear double layer Tubigrip to the left leg for swelling Cultures were obtained and will call with results
[2023-03-03 10:57] VITALS: BP 125/64; PULSE 91; RESP 18; TEMP 36.1
--- NOTE | 2023-03-03 12:04 | PCM.WC.PN ---
History of Present Illness Date of Service: 03/03/23 Chief Complaint: Follow-up on a open wound left lower leg in the calf History of Wound: 83-year-old female that had open heart surgery in January quadruple bypass. The day after surgery the spot of a white bubble showed up the next day. Denies any pain. Then it turned to like a black eschar. Was seen by her family doctor who had her soaking it with Joann soap. They also had tried putting an Neosporin ointment on it. Progress of Wound: Left medial lower leg wound is still there perfectly punctuated we will apply for EpiFix this week. In the meantime we will change up things and put her on Stacey and Adaptic with gauze and Marta. Subjective Subjective Patient is getting home health care that we did not know about which cause problems with getting her products sent to the house we did not know there was a delay but now everything seems fixed. Objective Data Objective Data No sign of infection everything looks good Is trying to get new tissue growing on the one side to fill and we will see if EpiFix fixes that also Cultures came back negative for any growth of bacteria Vital Signs: Vital Signs Temp Pulse Resp BP 97 F L 91 18 125/64 H 03/03/23 10:57 03/03/23 10:57 03/03/23 10:57 03/03/23 10:57 Lab / Micro Data Attestation: I reviewed the patient's lab results. Micro: Microbiology 02/24/23 10:50 Wound Abcess - Leg, Left Gram Stain - Final 02/24/23 10:50 Wound Abcess - Leg, Left Wound Culture - Final No growth aerobically. 02/24/23 10:50 Wound Abcess - Leg, Left Anaerobic Culture - Final No growth in 5 days. Debridement Note Debridement Note Wound debrided: Right lower leg open wound nonhealing Type of Debridement: Excisional debridement Anesthesia Used: 5% Lidocaine Gel Depth: in the subcutaneous layer Percentage of wound debrided: 100 Instrument Used: 5mm curette Tissue Removed: Fibrin Severity: Fat Layer Exposed Amount of bleeding with debridement: Mild Bleeding Controlled with: Compression and gauze Patient tolerated procedure: Patient tolerated procedure well Post-Debridement Measurements and Additional Note: Post-Debridement Measurements/Treatment WC - Nurse 1 - General Ulcer Assessment Start: 02/24/23 10:35 Freq: Status: Active Protocol: WC.LOWEXT Activity Type Activity Date Activity User E-sign Co-sign Detail Recorded Client Recorded Date Recorded By Document 02/24/23 10:35 RB [id number] 02/24/23 10:41 RB Document 03/03/23 10:57 RB [id number] 03/03/23 10:59 RB 02/24/23 03/03/23 10:35 10:57 - Today's Visit Information Type of service Initial Visit Follow-up Visit (Physician/PRODUCTS MECHANICAL DESIGN ENGINEER ) Arrival Mode Ambulatory Ambulatory Transfer Assistance None None Patient Identification Verified (Name & Yes Yes ) Patient Requires Transmission-Based No No Precautions Vital Signs Temperature (97.8 F-99.1 F) 97 F L 97 F L Temperature Source Temporal Temporal Pulse Rate (60-100) 99 91 Pulse Location Monitor Monitor Respiratory Rate (12-18) 18 18 Respiratory rate source Observation Observation Blood Pressure (90/60-120/80) 148/81 H 125/64 H Blood Pressure Mean (mm Hg) 103 84 Source Monitor Monitor Position Semi-Fowlers Semi-Fowlers Blood Pressure Location Left Arm Left Arm History Since Last Visit- (Skip if this is Patient's initial visit) Have you changed medications since your No No last visit? Any new allergies or adverse reactions No No Had a fall/change in ADL's that may No No increase risk of falls Signs or symptoms of abuse and/or No No neglect since last visit Have you been in the hospital since your No No last visit? Has dressing in place as prescribed Yes Yes Has compression in place as prescribed No Yes Has offloadiing in place as prescribed No No Experienced any changes in pain level or No No management Pain Scale: 0-10 Numeric Is Patient Pain Free? Yes Yes Neuropathy Assessment Feet - Top Side and Bottom <Entered> (a) Communication Assessment Preferred language Maori Payroll Processor Required No Able to Read Yes Able to Write Yes Communication Tools None Caregiver Communication Skills No Impairment Impairment Right Hearing Abillity Normal Left Hearing Abillity Normal Visual Assistive Devices Glasses Teaching Assessment Preferences Verbal,Written, Demonstration Readiness To Learn Excellent Willingness to Engage in Self Management High Activies Readiness to Engage in Self Management High Activities Anxiety Level Calm Cooperation Cooperative Perception Coherent Interest in Health Problem Asks Questions Education Importance Acknowledges Need Does Patient Smoke tobacco or other No substances Smoking Status Never smoker Is Patient Diabetic No Functional Assessment Recent Decline in Ability to Perform Denies Any Declines Assistive Device With Patient No Culture/Anabaptist/Dining Server Cultural/Anabaptist Needs that may affect No Treatment Plan Would you allow our hospital mica inspector to No meet you for the purpose of spiritual/ emotional support? Dining Server to contact place of gnosticist No (a) 1 - + throughout WC - Nurse 1 - General Ulcer Measurement Start: 02/24/23 10:35 Freq: Status: Active Protocol: Activity Type Activity Date Activity User E-sign Co-sign Detail Recorded Client Recorded Date Recorded By Document 02/24/23 10:35 RB [id number] 02/24/23 10:41 RB Document 03/03/23 10:57 RB [id number] 03/03/23 10:59 RB 02/24/23 03/03/23 10:35 10:57 Wound Center Nurse 1 LLE medial -Combined with other wound No No -Current Size (cm) - Length 1.2 1.2 -Current Size (cm) - Width 0.5 0.7 -Current Size (cm) - Depth 0.2 0.4 -Total Square Cm 0.60 0.84 -Photo Taken Yes Yes -Tunneling No No -Undermining/Tunneling No No -Circular Undermining No No -Exudate Amt None Present Medium -Exudate Type Serosanguineous -Wound Margin Distinct, Thickened & Outline Rolled Under Attached -Granulation Amt Medium (34-66%) Medium (34-66%) -Granulation Quality [place] -Slough/Fibrin Yes Yes -Necrosis Amt Medium (34-66%) Small (1-33%) -Necrotic Tissue Type Adherent Slough Adherent Slough -Structure Exposed N/A N/A -Texture (Jody-wound Skin Appearance) Assessed Assessed -Moisture (Jody-wound Skin Appearance) Assessed Assessed -Color (Jody-wound Skin Appearance) Assessed Assessed -Temperature (Jody-wound Skin No Abnormality No Abnormality Appearance) (Pt Warm) (Pt Warm) -Tenderness on Palpation (Jody-wound No No Skin Appearance) -Ulcer Cleansing Wound Cleanser Wound Cleanser -Foul Odor after Cleansing No No -Anesthetic Used 5% Lidocaine 5% Lidocaine Gel Gel Lower Limb Edema Present Yes Yes Right Calf (cm) 33 Right Ankle (cm) 18.2 Left Calf (cm) 33.2 33.5 Left Ankle (cm) 20.5 20 WC - Nurse 2 - General Ulcer CM Notes Start: 02/24/23 10:35 Freq: Status: Active Protocol: Activity Type Activity Date Activity User E-sign Co-sign Detail Recorded Client Recorded Date Recorded By Document 02/24/23 10:51 MW [id number] 02/24/23 10:57 MW Document 03/03/23 11:04 MW [id number] 03/03/23 11:09 MW 02/24/23 03/03/23 10:51 11:04 Wound Center Nurse 2 LLE medial -Time 10:51 11:05 -Correct Patient Yes Yes -Correct Side, Site, Position Yes Yes -Correct Procedure Yes Yes -Procedure Performed Yes Yes -Type of Procedure Debridement Debridement -Clinical Debridement Subcutaneous Subcutaneous -Tissue Removed Subcutaneous Subcutaneous -Post Debridement (cm) - Length 1.2 1.4 -Post Debridement (cm) - Width 0.8 0.8 -Post Debridement (cm) - Depth 0.4 0.4 -Total Square (Post) (cm) 0.96 1.12 -Area of Debridement (cm) - Length 1.2 1.4 -Area of Debridement (cm) - Width 0.8 0.8 -Total Square (Area) (cm) 0.96 1.12 -Tunneling No No -Undermining/Tunneling No No -Circular Undermining No No -Wound/Ulcer Outcome Not Healed Not Healed -Ulcer Cleansing Rinsed/ Rinsed/ Irrigated with Irrigated with Saline Saline -Foul Odor after Cleansing No No -Bioengineered Tissue No No -Bleeding Controlled with Pressure Pressure -Treatment Response Procedure Procedure Tolerated Well Tolerated Well -Offloading No No -Debridement - Subq, 1st 20sq cm Yes Yes Pain Scale: 0-10 Numeric Is Patient Pain Free? Yes Yes WC - Nurse 3 - General Ulcer D/C NN Start: 02/24/23 10:35 Freq: Status: Active Protocol: Activity Type Activity Date Activity User E-sign Co-sign Detail Recorded Client Recorded Date Recorded By Document 02/24/23 11:10 MW [id number] 02/24/23 11:12 MW Document 03/03/23 11:25 BMF [id number] 03/03/23 11:26 BMF 02/24/23 03/03/23 11:10 11:25 Wound Care Center Nurse 3 LLE medial -Ulcer Cleansing Rinsed/ Rinsed/ Irrigated with Irrigated with Saline Saline -Foul Odor after Cleansing No No -Negative Pressure Wound Therapy N/A -Primary Dressing Applied Aquacel Extra, Promogran NonAdherent Stacey Matter, Contact Layer, Mepilex Border Mepilex Border -Aquacel Extra 1 -Mepilex Border 2 1 -Promogran Stacey Matter 1 Left -Tubular Bandage Single Layer -Size of Tubigrip Used Size E -Size E ($) 1 Treatment Response Procedure Procedure Tolerated Well Tolerated Well Pain Scale: 0-10 Numeric Is Patient Pain Free? Yes Yes Teaching: Wound Center Dressing Your Wound -Person Taught Patient,Family -Teaching Method Discussion -Response to teaching Verbalize understanding WC - Visit Discharge Discharge Condition Stable Stable Ambulatory Status Ambulatory Ambulatory Transportation Private Auto Private Auto Accompanied by daughter JES Medication Reconcilliation completed & No provided to patient/care provider Clinical Summary of Care Provided Yes Assessment/Plan Assessment/Plan (1) Infected wound: CODE(S): T14.8XXA - Other injury of unspecified body region, initial encounter; L08.9 - Local infection of the skin and subcutaneous tissue, unspecified (2) Nonhealing nonsurgical wound: CODE(S): T14.8XXA - Other injury of unspecified body region, initial encounter PLAN: Wash wound with Hibiclens or antibacterial soap such as Dial. Apply Stacey to wound base moistened with Adaptic over top and a foam dressing daily Patient to wear double layer Tubigrip to the left leg for swelling
== END 2023-03-07 23:59 | disposition home or self-care (01) ==
LOC: WC 10:30
PROVIDERS: PCP Family Medicine; Referring Provider Family Medicine; Visit Provider Nurse Practitioner
DX: T81.89XA Other complications of procedures, not elsewhere classified, initial encounter (principal); S81.802A Unspecified open wound, left lower leg, initial encounter; I10 Essential (primary) hypertension; I25.10 Atherosclerotic heart disease of native coronary artery without angina pectoris; Z79.83 Long term (current) use of bisphosphonates; L08.9 Local infection of the skin and subcutaneous tissue, unspecified; Z79.82 Long term (current) use of aspirin; E78.5 Hyperlipidemia, unspecified; Y84.9 Medical procedure, unspecified as the cause of abnormal reaction of the patient, or of later complication, without mention of misadventure at the time of the procedure
CPT/HCPCS: 11042; 87070; 87075; 87205; 99203; G0463

== ENCOUNTER 2023-03-04 08:59 | Inpatient (IN) | payer MEDICARE, OTHER, SELFPAY ==
[2023-03-04 09:00] VITALS: BP 92/62; PULSE 96; RESP 20; TEMP 35.9; O2SAT 98; BMI 23.6
--- NOTE | 2023-03-04 09:26 | CT_ITS ---
STUDY: CT ABDOMEN AND PELVIS WITH CONTRAST REASON FOR EXAM: Female, 83 years old. Abdominal pain and bloody diarrhea. History of GI bleed. RADIATION DOSAGE (If Supplied By Facility): CTDIvol = ( 16.53 ) mGy, DLP = ( 752.07 ) mGycm TECHNIQUE: Transaxial images were obtained from the dome of the diaphragm to the symphysis pubis without oral contrast. IV 100mL Isovue-300 was administered. Sagittal and coronal images were reconstructed. Individualized dose optimization techniques were used for this CT. COMPARISON: None. FINDINGS: There are small bilateral pleural effusions with the bibasilar atelectasis as well as atelectasis in the right middle lobe. Coronary artery calcification. Normal liver. There are surgical clips in the gallbladder fossa consistent with a prior cholecystectomy. There is dilatation of the common bile duct down to the head of the pancreas. Maximum transverse dimension measures 1.75 cm. Normal spleen. Normal pancreas. Normal bilateral adrenal glands. Normal right kidney. Normal left kidney. Normal visualized stomach. Normal small intestine. There is diffuse circumferential wall thickening of the distal portion of the descending colon extending into the sigmoid colon with increased markings in the surrounding peritoneal fat. This is suggestive of colitis. Scattered sigmoid diverticula are seen. There is also evidence of a diverticulosis involving the right hemicolon. The appendix is visualized and appears normal. There is diffuse atherosclerotic calcification of the abdominal aorta, without a demonstrated aneurysm. Normal inferior vena cava. Normal retroperitoneum. Normal urinary bladder. There is a 2.2 cm cyst in the left ovary. Normal abdominal wall. There are diffuse degenerative changes of the visualized lumbar spine. Straightening of the normal lumbar lordosis. CT/Abdomen/Pelvis W IV Cont ONLY IMPRESSION: Inflammatory changes seen in the distal portion of the descending colon and sigmoid colon with scattered sigmoid diverticula. This may represent either localized diverticulitis versus colitis. 2.2 cm cyst in the left ovary. Small bilateral pleural effusions with bibasilar atelectasis. Electronically Signed: Leonel Montemayor MD at 10:47 EDT ,
[2023-03-04 09:42] LABS: Absolute Lymphocyte Count 1.43 X10^3/uL (0.83-4.51); Absolute Neutrophil Count 5.3 X10^3/uL (2.0-7.7); Basophil# 0.05 X10^3/uL; Basophil% 0.7 % (0-1); Eosinophil# 0.13 X10^3/uL; Eosinophils% 1.7 % (0-5); Hematocrit 39.3 % (37-47); Hemoglobin 12.3 g/dL (12.0-15.0); Lymphocyte # 1.43 X10^3/ul (0.83-4.51); Lymphocyte % 19.1 % (19-41); Mean Corp Hgb Conc 31.3 g/dL (32-36); Mean Corpuscular Hgb 30.1 pg (27.0-32.0); Mean Corpuscular Volume 96.3 fL (81-99); Mean Platelet Vol. 10.5 fl (6.2-12.0); Monocyte# 0.56 X10^3/uL; Monocyte% 7.5 % (0-10); NRBC Flagged by Analyzer 0 % (0-5); Neutrophil % 70.7 % (47-70); Platelet Count 234 K/mm3 (150-450); RBC Distribution Width CV 14.4 % (11.6-14.6); RBC Distribution Width SD 51.2 fl (35.1-43.9); Red Blood Count 4.08 M/mm3 (4.2-5.4); White Blood Count 7.5 K/mm3 (4.4-11.0)
[2023-03-04 09:52] LABS: Anion Gap 6 (5-15); BUN 15 mg/dL (7-18); BUN/Creat Ratio 12.2 RATIO (10-20); Calcium,Total 9.6 mg/dL (8.5-10.1); Chloride 107 mmol/L (98-107); Creatinine, Serum 1.23 mg/dL (0.55-1.02); EST Glomerular Filtration Rate 44 mL/min (>60); Est Glom Filt Rate - Afr Amer 53 mL/min (>60); Estimated Creatinine Clearance 27.66 ml/min; Glucose 123 mg/dL (74-106); Potassium 3.8 mmol/L (3.5-5.1); Sodium Level 137 mmol/L (136-145)
[2023-03-04 10:09] LABS: Lactic Acid 1.9 mmol/L (0.4-1.9)
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
[2023-03-04] MEDS: Ondansetron 4 MG/2 ML Vial IV ×2 (10:19→18:59)
[2023-03-04] MEDS: 0.9% Normal Saline 1,000 ML 1000 ML IV (10:19)
--- NOTE | 2023-03-04 12:12 | PCM.HP.STD ---
HPI - General General Date of Admission: 03/04/23 HPI Narrative SHAYY QUINONES, is a 83 F who presents to the hospital complaining of abdominal pain. She states that the pain is always there but the intensity comes and goes though it never completely goes away. She says it is mostly in her lower abdomen. The pain started yesterday and then she noticed some blood in her stool today hemoglobin is stable on admission. No significant fevers or chills her blood pressure was a little bit on the low side though she is on antihypertensive medications at baseline. CT scan does indicate possible colitis in the distal portion of her descending colon in her sigmoid colon. She does have diverticuli therefore this could either be diverticulitis versus ischemic colitis secondary to her low blood pressure. Her white count is unremarkable and her hemoglobin is 12.3 which is baseline. The decision was made to admit secondary to her hypotension and her abdominal pain. [facility] Medical History (Updated 03/04/23 @ 12:[address] Gelacio Arreola MD) Abnormal stress test CAD (coronary artery disease) Essential (primary) hypertension Hyperlipidemia Hypothyroidism Intermittent palpitations Left ventricular hypertrophy Neuropathy Home Medications aspirin 81 mg chewable tablet 324 mg PO DAILY@0800 01/22/17 [History Last Taken 03/03/23] pregabalin 100 mg capsule (Lyrica) 100 mg PO DAILY neuropathy 04/28/18 [History Last Taken 03/03/23] levothyroxine 75 mcg tablet 75 mcg PO DAILY 04/23/20 [History Last Taken 03/04/23] losartan 50 mg tablet 50 mg PO DAILY 02/05/23 [History Last Taken 03/04/23] acetaminophen 500 mg tablet 1,000 mg PO Q6H PRN Pain 03/04/23 [History Last Taken 03/04/23] Allergy/AdvReac Type Severity Reaction Status Date / Time gabapentin Allergy Itching Verified 03/04/23 09:02 risedronate sodium AdvReac Severe chest pain Verified 03/04/23 09:02 [From Actonel] rosuvastatin AdvReac Severe SOB, Verified 03/04/23 09:02 myalgias, chest pain, leg cramps atorvastatin [From Lipitor] AdvReac Intermediate Myalgias Verified 03/04/23 09:02 Family History Father , age74 CAD (coronary artery disease) Mother , Age 67 Cancer Ovarian Cancer Brother Colon cancer Sister Endometrial cancer Surgical History (Updated 03/04/23 @ 13:19 by Jessica Lee) Aortic valve replaced History of aortic valve replacement with bioprosthetic valve History of cholecystectomy History of D&C Hx of CABG Social History Smoking Status: Former smoker alcohol intake: never caffeine: Yes Type: coffee Number of servings: 1 ROS Constitutional Constitutional: Denies chills, fatigue, fever(s) or malaise Eyes Eyes: Denies blurry vision ENT HEENT: Denies headache(s) or nasal discharge Cardiovascular Cardiovascular: Denies chest pain, dyspnea on exertion or syncope Respiratory/Chest Respiratory/Chest: Denies cough, shortness of breath at rest or shortness of breath with exertion Gastrointestinal Gastrointestinal: Reports abdominal pain and melena; Denies constipation, diarrhea, nausea or vomiting Genitourinary Genitourinary: Denies dysuria Neurologic Neurologic: Denies focal weakness, numbness or tremor(s) Psychiatric Psychiatric: Denies anxiety or depression Vital Signs Vital Signs Vital Signs: 03/04/23 09:00 Temperature 96.7 F L Temperature Source Temporal Pulse Rate 96 Respiratory Rate 20 H Blood Pressure 92/62 Blood Pressure Mean 72 Pulse Ox 98 Oxygen Delivery Method Room Air Weight Weight: 133 lb 9.6 oz Body Mass Index (BMI) 23.6 Physical Exam Narrative General: Alert, Oriented x3, Cooperative, No apparent distress HEENT: Atraumatic, PERRLA, EOMI, Normocephalic Oral: Moist Mucosa Neck: Supple, No JVD Lungs: Clear to auscultation, Normal air movement, No rhonchi, No wheeze, No rales Cardiovascular: Regular rate, Regular Rhythm, Normal S1, Normal S2, No murmurs Abdomen: Soft, mild tender in her lower quadrants bilaterally, Non-Distended, No Hepato-splenomegaly Extremities: No edema, Capillary Refill Less than 3 Seconds Skin: No rashes, No breakdown Musculoskeletal: No Tenderness to Palpation of Joints or Extremities Neurological: Cranial nerves II-XII grossly intact, Motor Exam 5/5 strength throughout, Sensory exam intact to light touch and pain Psych/Mental Status: Normal Affect, Appropriate Results Lab / Micro Data Result Diagrams: 03/04/23 09:30 03/04/23 09:30 Labs: Laboratory Results - last 24 hr 03/04/23 09:30: WBC 7.5, RBC 4.08 L, Hgb 12.3, Hct 39.3, MCV 96.3, MCH 30.1, MCHC 31.3 L, RDW Std Deviation 51.2 H, RDW Coeff of Maxine 14.4, Plt Count 234, MPV 10.5, Immature Gran % (Auto) 0.300, Neut % (Auto) 70.7 H, Lymph % (Auto) 19.1, [place] % (Auto) 7.5, Eos % (Auto) 1.7, Baso % (Auto) 0.7, Absolute Neuts (auto) 5.3, Absolute Lymphs (auto) 1.43, Nucleated RBC % 0 03/04/23 09:30: Sodium 137, Potassium 3.8, Chloride 107, Carbon Dioxide 24.0, Anion Gap 6, BUN 15, Creatinine 1.23 H, Estim Creat Clear Calc 27.66, Est GFR (MDRD) Af Amer 53 L, Est GFR (MDRD) Non-Af 44 L, BUN/Creatinine Ratio 12.2, Glucose 123 H, Calcium 9.6 03/04/23 09:35: Lactic Acid 1.9 Radiology Impression Abdomen/Pelvis CT 03/04/23 09:26 IMPRESSION: Inflammatory changes seen in the distal portion of the descending colon and sigmoid colon with scattered sigmoid diverticula. This may represent either localized diverticulitis versus colitis. 2.2 cm cyst in the left ovary. Small bilateral pleural effusions with bibasilar atelectasis. Electronically Signed: Leonel Montemayor MD at 10:47 EDT , Assessment & Plan Assessment/Plan (1) Acute ischemic colitis: PLAN: Plan 1. Acute ischemic colitis versus diverticulitis ? Unsure at the moment as to what the etiology is, she is afebrile without a leukocytosis indicating possible ischemic colitis especially since she was hypotensive ? We will consult gastroenterology for assistance ? We will continue with Cipro and Flagyl IV ? We will continue with IV fluids ? She did receive a dose of morphine in the ER, will continue with pain medication as well as Zofran ? We will allow her to have a clear liquid diet 2. CAD status post CABG as well as aortic valve replacement/HTN/HLD ? Given her hypotension we will hold her losartan ? Continue with her aspirin ? She is not on a statin due to myalgias both to Crestor as well as Lipitor 3. Hypothyroidism ? Stable ? Continue with Synthroid DVT: Rebeccax 78 minutes was spent in chart review, as well as documentation and [id number] patient evaluation as well as collaboration with colleagues Charges/Coding Visit Charges Inpatient E&M: 69394 Init Hosp L3
[2023-03-04 12:33] VITALS: BP 131/108; PULSE 84; RESP 18; TEMP 36.2; O2SAT 100
[2023-03-04] MEDS: metroNIDAZOLE 500 MG/100 ML BAG 100 MG IV ×2 (12:40→20:41)
[2023-03-04 13:11] VITALS: BP 141/78; PULSE 73; RESP 18; TEMP 36.3; O2SAT 95
[2023-03-04 13:12] VITALS: BMI 23.8
[2023-03-04] MEDS: 0.9% Normal Saline 1,000 ML 100 ML IV (13:35)
--- NOTE | 2023-03-04 13:58 | WOUNDNOTE ---
wound photo: left lower leg
[2023-03-04] MEDS: Bisacodyl 5 MG Tablet 20 MG PO (15:54)
--- NOTE | 2023-03-04 16:33 | NURSING ---
dietary notified of needing Gatorade for bowel prep.
--- NOTE | 2023-03-04 16:56 | EX.PCM.CON.G ---
HPI Consult Data Date of Consult: 03/04/23 HPI Narrative Reason for Consultation: GI bleed HPI Narrative: SHAYY QUINONES, is a 83 F who presents with lower GI bleeding. She has a history of hypothyroidism, hypertension with aortic valve disease who presents with bilateral lower abdominal pain that started yesterday with blood per rectum noted today.? She has been on antibiotics.? She denies diarrhea.? She denies fever or chills.? She denies orthostatic symptoms. Approximately 1 month ago she underwent a four-vessel CABG procedure and has been on 325 mg of baby aspirin ever since. She denies headache, visual, ocular auditory symptoms.? She denies cardiac or respiratory symptoms.? She denies dysuria, frequency, urgency or hematuria.? She denies bruising easily.? Denies bleeding of her gums with brushing her teeth.? She is not on an anticoagulant.? There is a history of diverticulosis without history of diverticulitis. She had a CT scan abdomen pelvis that it showed inflammation in the rectum up to the splenic flexure possibly secondary to ischemic colitis. [facility] Medical History (Updated 03/04/23 @ 16:[address] Allen Friend, DO) Abnormal stress test CAD (coronary artery disease) Essential (primary) hypertension Hyperlipidemia Hypothyroidism Intermittent palpitations Left ventricular hypertrophy Neuropathy Home Medications aspirin 81 mg chewable tablet 324 mg PO DAILY@0800 01/22/17 [History Last Taken 03/03/23] pregabalin 100 mg capsule (Lyrica) 100 mg PO DAILY neuropathy 04/28/18 [History Last Taken 03/03/23] levothyroxine 75 mcg tablet 75 mcg PO DAILY 04/23/20 [History Last Taken 03/04/23] losartan 50 mg tablet 50 mg PO DAILY 02/05/23 [History Last Taken 03/04/23] acetaminophen 500 mg tablet 1,000 mg PO Q6H PRN Pain 03/04/23 [History Last Taken 03/04/23] Allergy/AdvReac Type Severity Reaction Status Date / Time gabapentin Allergy Itching Verified 03/04/23 09:02 risedronate sodium AdvReac Severe chest pain Verified 03/04/23 09:02 [From Actonel] rosuvastatin AdvReac Severe SOB, Verified 03/04/23 09:02 myalgias, chest pain, leg cramps atorvastatin [From Lipitor] AdvReac Intermediate Myalgias Verified 03/04/23 09:02 Family History Father , age74 CAD (coronary artery disease) Mother , Age 67 Cancer Ovarian Cancer Brother Colon cancer Sister Endometrial cancer Surgical History (Updated 03/04/23 @ 13:19 by Jessica Lee) Aortic valve replaced History of aortic valve replacement with bioprosthetic valve History of cholecystectomy History of D&C Hx of CABG Social History Smoking Status: Former smoker alcohol intake: never caffeine: Yes Type: coffee Number of servings: 1 ROS Constitutional Constitutional: Denies chills, fatigue, fever(s) or malaise Eyes Eyes: Denies blurry vision ENT HEENT: Denies headache(s) or nasal discharge Cardiovascular Cardiovascular: Denies chest pain, dyspnea on exertion or syncope Respiratory/Chest Respiratory/Chest: Denies cough, shortness of breath at rest or shortness of breath with exertion Gastrointestinal Gastrointestinal: Reports abdominal pain and melena; Denies constipation, diarrhea, nausea or vomiting Genitourinary Genitourinary: Denies dysuria Neurologic Neurologic: Denies focal weakness, numbness or tremor(s) Psychiatric Psychiatric: Denies anxiety or depression Physical Exam Narrative General: Alert, Oriented x3, Cooperative, No apparent distress HEENT: Atraumatic, PERRLA, EOMI, Normocephalic Oral: Moist Mucosa Neck: Supple, No JVD Lungs: Clear to auscultation, Normal air movement, No rhonchi, No wheeze, No rales Cardiovascular: Regular rate, Regular Rhythm, Normal S1, Normal S2, No murmurs Abdomen: Soft, mild tender in her lower quadrants bilaterally, Non-Distended, No Hepato-splenomegaly Extremities: No edema, Capillary Refill Less than 3 Seconds Skin: No rashes, No breakdown Musculoskeletal: No Tenderness to Palpation of Joints or Extremities Neurological: Cranial nerves II-XII grossly intact, Motor Exam 5/5 strength throughout, Sensory exam intact to light touch and pain Psych/Mental Status: Normal Affect, Appropriate Lab / Micro Data Result Diagrams: 03/04/23 09:30 03/04/23 09:30 Labs: Laboratory Results - last 24 hr 03/04/23 09:30: WBC 7.5, RBC 4.08 L, Hgb 12.3, Hct 39.3, MCV 96.3, MCH 30.1, MCHC 31.3 L, RDW Std Deviation 51.2 H, RDW Coeff of Maxine 14.4, Plt Count 234, MPV 10.5, Immature Gran % (Auto) 0.300, Neut % (Auto) 70.7 H, Lymph % (Auto) 19.1, [place] % (Auto) 7.5, Eos % (Auto) 1.7, Baso % (Auto) 0.7, Absolute Neuts (auto) 5.3, Absolute Lymphs (auto) 1.43, Nucleated RBC % 0 03/04/23 09:30: Sodium 137, Potassium 3.8, Chloride 107, Carbon Dioxide 24.0, Anion Gap 6, BUN 15, Creatinine 1.23 H, Estim Creat Clear Calc 27.66, Est GFR (MDRD) Af Amer 53 L, Est GFR (MDRD) Non-Af 44 L, BUN/Creatinine Ratio 12.2, Glucose 123 H, Calcium 9.6 03/04/23 09:35: Lactic Acid 1.9 Radiology Impression Abdomen/Pelvis CT 03/04/23 09:26 IMPRESSION: Inflammatory changes seen in the distal portion of the descending colon and sigmoid colon with scattered sigmoid diverticula. This may represent either localized diverticulitis versus colitis. 2.2 cm cyst in the left ovary. Small bilateral pleural effusions with bibasilar atelectasis. Electronically Signed: Leonel Montemayor MD at 10:47 EDT , Assessment & Plan Assessment/Plan (1) Acute ischemic colitis: PLAN: Patient recently had a four-vessel CABG procedure which puts her at great risk for ischemic colitis and central nervous system ischemia. Recommend colonoscopy to evaluate the GI tract to see the distribution of injury. She would likely need a CT angiography of the abdomen pelvis for full evaluation also. (2) GI bleed: PLAN: Patient is at risk for upper GI bleed with rapid transit and lower GI bleed secondary to NSAID therapy. She may need upper endoscopy pending what we see tomorrow on a colonoscopy. Charges/Coding Visit Charges Inpatient E&M: 90551 Init Hosp L3
[2023-03-04] MEDS: Polyethylene Glycol 3350 BOWEL PREP PO (18:57)
[2023-03-04] MEDS: 0.9% Saline Lock 10 ML Syringe IV (18:59)
[2023-03-04 19:58] LABS: Thyroid Stim Hormone (TSH) 0.13 uIU/mL (0.358-3.74)
[2023-03-04 20:27] VITALS: BP 155/81; PULSE 87; RESP 16; TEMP 36.6; O2SAT 98
[2023-03-04] MEDS: Ciprofloxacin 400 MG/200 ML BAG 200 MG IV (20:41)
[2023-03-05] VITALS (8 sets, daily range): BP systolic 108–147; BP diastolic 49–80; PULSE 68–83; RESP 14–18; TEMP 36.4–36.9; O2SAT 94–97; BMI 23.8
[2023-03-05] MEDS: 0.9% Normal Saline 1,000 ML 100 ML IV ×2 (00:55→13:26)
[2023-03-05 05:33] LABS: Absolute Lymphocyte Count 1.74 X10^3/uL (0.83-4.51); Absolute Neutrophil Count 5.1 X10^3/uL (2.0-7.7); Basophil# 0.06 X10^3/uL; Basophil% 0.8 % (0-1); Eosinophil# 0.23 X10^3/uL; Hematocrit 37.1 % (37-47); Hemoglobin 11.3 g/dL (12.0-15.0); Lymphocyte # 1.74 X10^3/ul (0.83-4.51); Lymphocyte % 22.5 % (19-41); Mean Corp Hgb Conc 30.5 g/dL (32-36); Mean Corpuscular Hgb 29.4 pg (27.0-32.0); Mean Corpuscular Volume 96.4 fL (81-99); Mean Platelet Vol. 9.6 fl (6.2-12.0); Monocyte# 0.56 X10^3/uL; Monocyte% 7.3 % (0-10); NRBC Flagged by Analyzer 0 % (0-5); Neutrophil # 5.11 X10^3/uL (2.7-7.7); Neutrophil % 66.1 % (47-70); Platelet Count 210 K/mm3 (150-450); RBC Distribution Width CV 14.4 % (11.6-14.6); RBC Distribution Width SD 50.9 fl (35.1-43.9); Red Blood Count 3.85 M/mm3 (4.2-5.4); White Blood Count 7.7 K/mm3 (4.4-11.0)
[2023-03-05] MEDS: metroNIDAZOLE 500 MG/100 ML BAG 100 MG IV ×2 (05:46→13:27)
[2023-03-05 06:01] LABS: Anion Gap 5 (5-15); BUN 11 mg/dL (7-18); BUN/Creat Ratio 12.6 RATIO (10-20); Calcium,Total 8.7 mg/dL (8.5-10.1); Chloride 112 mmol/L (98-107); Creatinine, Serum 0.87 mg/dL (0.55-1.02); EST Glomerular Filtration Rate 66 mL/min (>60); Est Glom Filt Rate - Afr Amer 79 mL/min (>60); Estimated Creatinine Clearance 39.11 ml/min; Glucose 86 mg/dL (74-106); Potassium 3.6 mmol/L (3.5-5.1); Sodium Level 139 mmol/L (136-145)
--- NOTE | 2023-03-05 09:53 | PCM.PN.HOSP ---
Subjective Subjective Doing well, no issues overnight. Abdominal pain is completely resolved Objective Data Objective Data Vital Signs: Vital Signs Temp Pulse Resp BP Pulse Ox O2 Del Method 98.5 F 68 16 114/65 97 Room Air 03/05/23 05:51 03/05/23 05:51 03/05/23 05:51 03/05/23 05:51 03/05/23 05:51 03/05/23 05:51 Oxygen Delivery Method Room Air Weight: 136 lb 10.986 oz Body Mass Index (BMI) 23.8 Intake & Output: Intake and Output for Last 24 Hours 03/04/23 03/05/23 03/06/23 03:59 03:59 03:59 Intake Total 2400 / 2400 100 / 100 Balance 2400 / 2400 100 / 100 Lab / Micro Data Result Diagrams: 03/05/23 05:25 03/05/23 05:25 Labs: Laboratory Results - last 24 hr 03/04/23 09:30: TSH 0.13 L 03/04/23 09:35: Lactic Acid 1.9 03/05/23 05:25: WBC 7.7, RBC 3.85 L, Hgb 11.3 L, Hct 37.1, MCV 96.4, MCH 29.4, MCHC 30.5 L, RDW Std Deviation 50.9 H, RDW Coeff of Maxine 14.4, Plt Count 210, MPV 9.6, Immature Gran % (Auto) 0.300, Neut % (Auto) 66.1, Lymph % (Auto) 22.5, [place] % (Auto) 7.3, Eos % (Auto) 3.0, Baso % (Auto) 0.8, Absolute Neuts (auto) 5.1, Absolute Lymphs (auto) 1.74, Nucleated RBC % 0 03/05/23 05:25: Sodium 139, Potassium 3.6, Chloride 112 H, Carbon Dioxide 22.0, Anion Gap 5, BUN 11, Creatinine 0.87, Estim Creat Clear Calc 39.11, Est GFR (MDRD) Af Amer 79, Est GFR (MDRD) Non-Af 66, BUN/Creatinine Ratio 12.6, Glucose 86, Calcium 8.7 Radiography Diagnostic Testing: Radiology Impression Abdomen/Pelvis CT 03/04/23 09:26 IMPRESSION: Inflammatory changes seen in the distal portion of the descending colon and sigmoid colon with scattered sigmoid diverticula. This may represent either localized diverticulitis versus colitis. 2.2 cm cyst in the left ovary. Small bilateral pleural effusions with bibasilar atelectasis. Electronically Signed: Leonel Montemayor MD at 10:47 EDT , Physical Exam Narrative General: Alert, Oriented x3, Cooperative, No apparent distress HEENT: Atraumatic, PERRLA, EOMI, Normocephalic Oral: Moist Mucosa Neck: Supple, No JVD Lungs: Clear to auscultation, Normal air movement, No rhonchi, No wheeze, No rales Cardiovascular: Regular rate, Regular Rhythm, Normal S1, Normal S2, No murmurs Abdomen: Soft, nontender, Non-Distended, No Hepato-splenomegaly Extremities: No edema, Capillary Refill Less than 3 Seconds Skin: No rashes, No breakdown Musculoskeletal: No Tenderness to Palpation of Joints or Extremities Neurological: Cranial nerves II-XII grossly intact, Motor Exam 5/5 strength throughout, Sensory exam intact to light touch and pain Psych/Mental Status: Normal Affect, Appropriate Assessment & Plan Assessment/Plan (1) Acute ischemic colitis: PLAN: Plan 1. Acute ischemic colitis versus diverticulitis ? Unsure at the moment as to what the etiology is, she is afebrile without a leukocytosis indicating possible ischemic colitis especially since she was hypotensive ? We will consult gastroenterology, plan for scope today ? We will continue with Cipro and Flagyl IV ? We will continue with IV fluids ? She did receive a dose of morphine in the ER, will continue with pain medication as well as Zofran ? Currently n.p.o. for scope 2. CAD status post CABG as well as aortic valve replacement/HTN/HLD ? Blood pressures are stabilized, can resume her losartan when able to take p.o. ? Continue with her aspirin when able to take p.o. ? She is not on a statin due to myalgias both to Crestor as well as Lipitor 3. Hypothyroidism ? Stable ? Continue with Synthroid DVT: Lovenox Charges/Coding Visit Charges Inpatient E&M: 69133 Subs Hosp L2
[2023-03-05] MEDS: Ciprofloxacin 400 MG/200 ML BAG 200 MG IV (10:41)
[2023-03-05] MEDS: Lactated Ringers 1,000 ML 15 ML IV (10:43)
--- NOTE | 2023-03-05 11:08 | CASEMGMT ---
RN CM NOTE: RN CM to room to complete initial RN CM assess. Pt is out of room @ Endo at this time. RN CM to complete assess at a later time. Thais DAVISN RN CM
--- NOTE | 2023-03-05 11:30 | COLBX_PTH ---
PATIENT: SHAYY QUINONES LOC: MS3 U#:[id number] AGE/SX: 83/F ROOM: [facility] RE03/04/[address]: Dr. Davie Wheeler MD : 1940 BED: 1 DIS: 03/05/2023 SPEC #: [id number] RECD: 03/05/23 13:25 STATUS: ASHLY CALVILLO #: [id number] ALEXX: 03/05/23 11:[address]: Alejandro Augustin DEPT: SURGICAL PATHOLOGY RECD BY: Naomy Overton ENTERED: 03/05/23 13:56 SP TYPE: COLON BX OTHR DR: MD Dr. Davie Alcazar MD Tissues: A - COLON BIOPSY B - Sigmoid colon biopsy Procedures: Surgery Specimen Level IV Comments: @ Ordering doctor for SUIV edited from to @ by ALTAF at 03/05/23 1417 @ Submitting doctor edited from to @ by THEODOREOD at 03/05/23 1417 HEADER OPERATION: Colonoscopy (MAC) with biopsy PRE-OP DIAGNOSIS: Acute ischemic colitis, GI bleed TISSUE SUBMITTED: A ? Splenic flexure biopsy, B ? Sigmoid colon biopsy MICROSCOPIC DIAGNOSIS A. Splenic flexure, biopsy: Fragments of colonic mucosa with focal ulceration, acute inflammation and changes consistent with ischemic colitis. B. Sigmoid colon, biopsy: Fragments of colonic mucosa with focal ulceration, acute inflammation and changes consistent with ischemic colitis. NESHA:joi 03/08/2023 MICROSCOPIC DESCRIPTION Slides are reviewed. GROSS DESCRIPTION A - Received in fixative is one container labeled with the patient's name and designated splenic flexure biopsy. The specimen consists of two irregular fragments of light ortega soft tissue that in aggregate measure 0.6 x 0.3 x 0.1 cm. The specimen is totally submitted in one cassette. B - Received in fixative is one container labeled with the patient's name and designated sigmoid colon biopsy. The specimen consists of two irregular fragments of light ortega soft tissue that in aggregate measure 0.5 x 0.3 x 0.1 cm. The specimen is totally submitted in one cassette. / NESHA:joi 03/05/2023 TC:5 CPT: 93517 x2
--- NOTE | 2023-03-05 12:16 | OP.COLON_ITS ---
Patient Name: Ritika Soto Procedure Date: 03/05/2023 11:19 AM Date of : 1940 Age: 83 Procedure: Colonoscopy Indications: Hematochezia Providers: Alejandro Augustin DO Medicines: Monitored Anesthesia Care Patient Profile: This is an 83 year old female. Refer to note in patient chart for documentation of history and physical. Last Colonoscopy: 5 years ago. Complications: No immediate complications. Procedure: Pre-Anesthesia Assessment: - Prior to the procedure, a History and Physical was performed, and patient medications and allergies were reviewed. The patient is competent. The risks and benefits of the procedure and the sedation options and risks were discussed with the patient. All questions were answered and informed consent was obtained. Patient identification and proposed procedure were verified by the physician in the pre-procedure area. Mental Status Examination: alert and oriented. Prophylactic Antibiotics: The patient does not require prophylactic antibiotics. Prior Anticoagulants: The patient has taken no previous anticoagulant or antiplatelet agents. ASA Grade Assessment: III - A patient with severe systemic disease. After reviewing the risks and benefits, the patient was deemed in satisfactory condition to undergo the procedure. The anesthesia plan was to use monitored anesthesia care (MAC). Immediately prior to administration of medications, the patient was re-assessed for adequacy to receive sedatives. The heart rate, respiratory rate, oxygen saturations, blood pressure, adequacy of pulmonary ventilation, and response to care were monitored throughout the procedure. The physical status of the patient was re-assessed after the procedure. After I obtained informed consent, the scope was passed under direct vision. Throughout the procedure, the patient's blood pressure, pulse, and oxygen saturations were monitored continuously. The colonoscope was introduced through the anus and advanced to the cecum, identified by appendiceal orifice and ileocecal valve. The colonoscopy was performed without difficulty. The patient tolerated the procedure well. The quality of the bowel preparation was adequate. Scope In: 11:49:52 AM Scope Withdrawal Time 0 hours 10 minutes 45 seconds Scope Out: 12:06:22 PM Total Procedure Duration Time 0 hours 16 minutes 30 seconds Findings: Hemorrhoids were found on perianal exam. Multiple small and large-mouthed diverticula were found in the recto-sigmoid colon, sigmoid colon and descending colon. Patchy inflammation characterized by erythema, friability, granularity, loss of vascularity and deep ulcerations was found in the sigmoid colon. Biopsies were taken with a cold forceps for histology. Verification of patient identification for the specimen was done. Estimated blood loss was minimal. Discontinuous areas of bleeding ulcerated mucosa with stigmata of recent bleeding were present at the hepatic flexure. Area was successfully injected with 5 mL of a 1:10,000 solution of epinephrine for drug delivery. Coagulation for hemostasis using monopolar probe was successful. Estimated blood loss was minimal. Impression: - Hemorrhoids found on perianal exam. - Diverticulosis in the recto-sigmoid colon, in the sigmoid colon and in the descending colon. - Patchy inflammation was found in the sigmoid colon secondary to ischemic colitis. Biopsied. - Mucosal ulceration. Injected. Treated with a monopolar probe. Recommendation: - Discharge patient to home. - Resume previous diet. - No recommendation at this time regarding repeat colonoscopy due to age. - Continue present medications. Procedure Code(s): --- Professional --- 15187, 59, Colonoscopy, flexible; with control of bleeding, any method 23153, Colonoscopy, flexible; with biopsy, single or multiple CPT copyright 2017 [employer]. All rights reserved. The codes documented in this report are preliminary and upon heat transfer technician review may be revised to meet current compliance requirements. Alejandro Augustin DO 03/05/2023 12:16:16 PM This report has been signed electronically. Number of Addenda: 0 Note Initiated On: 03/05/2023 11:19 AM
--- NOTE | 2023-03-05 12:17 | OP.CCLET_ITS ---
03/05/2023 Fiona Feliciano [address] [place] [address] Re : Colonoscopy procedure for Ritika Soto Dear Dr. Feliciano This procedure was performed on Sunday, March 05, 2023. My impressions and recommendations are as follows: Impressions : - Hemorrhoids found on perianal exam. - Diverticulosis in the recto-sigmoid colon, in the sigmoid colon and in the descending colon. - Patchy inflammation was found in the sigmoid colon secondary to ischemic colitis. Biopsied. - Mucosal ulceration. Injected. Treated with a monopolar probe. Recommendations : - Discharge patient to home. - Resume previous diet. - No recommendation at this time regarding repeat colonoscopy due to age. - Continue present medications. My findings are described in the full procedure note, which is enclosed. If I can be of further assistance, please feel free to contact me at . Sincerely, Alejandro Augustin, 03/05/2023 12:16:16 PM This report has been signed electronically.
--- NOTE | 2023-03-05 14:20 | CASEMGMT ---
RN?CM?DIRECTOR OF SPORTS PERFORMANCE?CM?to room to meet with patient for initial transition planning/care coordination?assessment.?RN?CM?introduced self and role at [facility].? Pt voices understanding and consents to?assessment?at this time.? Pt resting in bed in no distress at this time.? Pt is A/O at this time and answers all questions appropriately.?? Care providers, pharmacy, and demographics verified/updated at this time. PCP: Dr Feliciano Specialists:LIZ/Cardiology Preferred [facility]acy: [facility] Insurance: MCR, MMO Prescription Benefit:?Yes Living Will/HPOA:?Has both LW and HCPOA, who is her dtr, Loren LNOK: dtr/POA, Loren. , Jose Carlos Living Arrangements: Lives w/her in one-story home w/basement and 3 steps to enter. Denies difficulty w/stairs into the home. Indep w/ADL's and IADL's and manages her own medications. Pt's dtr lives next door. Transportation:?Pt states drives self and states no transportation concerns at this time.? also drives. DME: ? Denies using any DME and denies needs.? She states she does have a RTS, WW, and shower chair available, but does not use. HHC/SNF: No hx of SNF. [facility]. She would like to resume HHC w/them and denies wanting list of other HHC options. Call to [facility] and verified pt is active w/them for SN and PT. They were notified pt has been admitted to [facility] and anticipate d/c either today or tomorrow. [facility]AN[facility] order placed and sent to [facility] via [employer]. Pt states she is also planning on starting Cardiac Rehab soon. Pt wishes to return home and states has no concerns with going home at time of discharge.? CM?to follow for any further discharge planning/needs.? Pt voices no further concerns/needs at this time.? Advised pt to ask for?CM?if any further questions/concerns/needs arise.? Voices understanding. PLAN:??Home w/DIAN[facility] HHC: SN, PT. Green sheet placed on chart for HHC. Thais DAVISN?RN?CM
--- NOTE | 2023-03-05 15:11 | DCINST_ITS ---
Discharge Instructions Diet Discharge Diet: No restrictions Activity Discharge Activity: Return to Normal Activity Dressing / Incision Call your doctor if you observe: Fever of 101 or Higher, Shortness of breath, Dizziness, Fainting spells, Swelling in the ankles, Chest pain and Increased palpitations (irregular heartbeat) Follow Up Care Test Results: Test results from this visit will be discussed in further detail at your follow- up appointment, if applicable. Discharge Plan Admission Admit Date/Time: 03/04/23 12:08 Attending Provider: Davie Wheeler Primary Care Provider: Fiona Feliciano Discharge Orders/Prescriptions Prescriptions: Continued pregabalin [Lyrica] 100 mg capsule 100 mg PO DAILY levothyroxine 75 mcg tablet 75 mcg PO DAILY Label Comments: TAKE 1 TABLET BY MOUTH ONCE DAILY aspirin 81 MG tablet,chewable 324 mg PO DAILY@0800 acetaminophen 500 mg Tablet 1,000 mg PO Q6H PRN (Reason: Pain) losartan 50 mg tablet 50 mg PO DAILY Referrals / Follow Up: Fiona Feliciano MD [Primary Care Provider] - Within 1 Week Disposition Disposition (needs filled in before D/C Order can be placed): Home Health Service
--- NOTE | 2023-03-05 15:36 | PCM.DC.SUM ---
Providers Date of Admission: 03/04/23 Primary Care Physician: Dr. Fiona Feliciano MD Consultations 03/04/23 13:06 Consult: Gastroenterology Routine Consulting Provider: Chong Carney Reason for Consult: Diverticulitis versus ischemic colitis EMERGENT Consult: No MD Notified: Yes Date Notified: 03/04/23 Time Notified: 12:12 Method of Notification: ED Physician Initiated 03/04/23 13:37 Consult: Onc/Wound/assistant produce manager Routine Comment: Reason for Consult:: wound/burn to LLE, is seen at wound center Reason For Visit: DIVERTICULITIS Diagnosis Discharge Diagnosis (1) Acute ischemic colitis: Status: Acute Code(s): K55.039 - Acute (reversible) ischemia of large intestine, extent unspecified Medications at Discharge Home Medications aspirin 81 mg chewable tablet 324 mg PO DAILY@0800 01/22/17 pregabalin 100 mg capsule (Lyrica) 100 mg PO DAILY neuropathy 04/28/18 levothyroxine 75 mcg tablet 75 mcg PO DAILY 04/23/20 losartan 50 mg tablet 50 mg PO DAILY 02/05/23 acetaminophen 500 mg tablet 1,000 mg PO Q6H PRN Pain 03/04/23 Hospital Course Operations None Procedures Colonoscopy Summary of Care Provided Minutes Spent on Discharge: 40 Hospital Course: Per HPI: SHAYY QUINONES, is a 83 F who presents to the hospital complaining of abdominal pain.? She states that the pain is always there but the intensity comes and goes though it never completely goes away.? She says it is mostly in her lower abdomen.? The pain started yesterday and then she noticed some blood in her stool today hemoglobin is stable on admission.? No significant fevers or chills her blood pressure was a little bit on the low side though she is on antihypertensive medications at baseline.? CT scan does indicate possible colitis in the distal portion of her descending colon in her sigmoid colon.? She does have diverticuli therefore this could either be diverticulitis versus ischemic colitis secondary to her low blood pressure.? Her white count is unremarkable and her hemoglobin is 12.3 which is baseline.? The decision was made to admit secondary to her hypotension and her abdominal pain. Hospital Course: 1. Acute ischemic colitis versus diverticulitis ? Unsure at the moment as to what the etiology is, she is afebrile without a leukocytosis indicating possible ischemic colitis especially since she was hypotensive ?Colonoscopy demonstrated multiple small areas of ischemic colitis with an area of ulceration that was treated ? We will continue with Cipro and Flagyl IV ? We will continue with IV fluids ? She did receive a dose of morphine in the ER, will continue with pain medication as well as Zofran ?I did discuss with her primary care doctor the idea of discontinuing blood pressure medications however this would also need to be reviewed likely by her cardiothoracic surgeon as she is only a few weeks out from a CABG. However I feel that in her higher blood pressure would be better suited to preventing any further episodes of colonic ischemia. I discussed with the patient the plan for discharge and she expressed understanding of the risk benefits of going home and would like to go home today. Given the findings of ischemic colitis, Cipro and Flagyl were discontinued on discharge and she can resume all of her home medications. She did improve faster than anticipated and the area of illness was not as extensive as previously thought which is why she was discharged earlier than anticipated. 2. CAD status post CABG as well as aortic valve replacement/HTN/HLD ? Blood pressures are stabilized, can resume her losartan when able to take p.o. though it might be more beneficial for the future to have her off of blood pressure medications given the findings of colonic ischemia ? Continue with her aspirin when able to take p.o. ? She is not on a statin due to myalgias both to Crestor as well as Lipitor 3. Hypothyroidism ? Stable ? Continue with Synthroid Weight / BMI Weight Weight: 136 lb 10.986 oz Body Mass Index (BMI) 23.8 ABG / Lab / Microbiology Data Result Diagrams: 03/05/23 05:25 03/05/23 05:25 Laboratory: Laboratory Results - last 24 hr 03/04/23 09:30: TSH 0.13 L 03/05/23 05:25: WBC 7.7, RBC 3.85 L, Hgb 11.3 L, Hct 37.1, MCV 96.4, MCH 29.4, MCHC 30.5 L, RDW Std Deviation 50.9 H, RDW Coeff of Maxine 14.4, Plt Count 210, MPV 9.6, Immature Gran % (Auto) 0.300, Neut % (Auto) 66.1, Lymph % (Auto) 22.5, [place] % (Auto) 7.3, Eos % (Auto) 3.0, Baso % (Auto) 0.8, Absolute Neuts (auto) 5.1, Absolute Lymphs (auto) 1.74, Nucleated RBC % 0 03/05/23 05:25: Sodium 139, Potassium 3.6, Chloride 112 H, Carbon Dioxide 22.0, Anion Gap 5, BUN 11, Creatinine 0.87, Estim Creat Clear Calc 39.11, Est GFR (MDRD) Af Amer 79, Est GFR (MDRD) Non-Af 66, BUN/Creatinine Ratio 12.6, Glucose 86, Calcium 8.7 D/C Instructions Discharge Diet: No restrictions Call your doctor if you observe: Fever of 101 or Higher, Shortness of breath, Dizziness, Fainting spells, Swelling in the ankles, Chest pain and Increased palpitations (irregular heartbeat) Meaningful Use Info Meaningful Use Diagnoses (Choose all that apply): None applicable Discharge Plan Admission Admit Date/Time: 03/04/23 12:08 Attending Provider: Davie Wheeler Primary Care Provider: Fiona Feliciano Discharge Orders/Prescriptions Prescriptions: Continued pregabalin [Lyrica] 100 mg capsule 100 mg PO DAILY levothyroxine 75 mcg tablet 75 mcg PO DAILY Label Comments: TAKE 1 TABLET BY MOUTH ONCE DAILY aspirin 81 MG tablet,chewable 324 mg PO DAILY@0800 acetaminophen 500 mg Tablet 1,000 mg PO Q6H PRN (Reason: Pain) losartan 50 mg tablet 50 mg PO DAILY Referrals / Follow Up: Fiona Feliciano MD [Primary Care Provider] - Within 1 Week Disposition Disposition (needs filled in before D/C Order can be placed): Home Health Service Charges/Coding Visit Charges Inpatient E&M: 73252 Disch Hosp >30min
== END 2023-03-05 17:12 | disposition home health service (06) | DRG 393 ==
LOC: ED 12:18 → MS3 12:22
PROVIDERS: Anesthesiology; Internal Medicine Gastroenterology; Admitting Provider Family Medicine; Emergency Provider Emergency Medicine; PCP Family Medicine; Visit Provider Family Medicine
PROC: 0DJD8ZZ Inspection of Lower Intestinal Tract, Via Natural or Artificial Opening Endoscopic (ICD-10-PCS; CPT 45378; principal; 2023-03-05 11:25)
DX: K55.039 Acute (reversible) ischemia of large intestine, extent unspecified (principal); K57.31 Diverticulosis of large intestine without perforation or abscess with bleeding; K92.1 Melena; I95.9 Hypotension, unspecified; E03.9 Hypothyroidism, unspecified; I25.10 Atherosclerotic heart disease of native coronary artery without angina pectoris; I10 Essential (primary) hypertension; E78.5 Hyperlipidemia, unspecified; S81.802A Unspecified open wound, left lower leg, initial encounter; L08.9 Local infection of the skin and subcutaneous tissue, unspecified; Z79.82 Long term (current) use of aspirin; Z79.890 Hormone replacement therapy; Z79.899 Other long term (current) drug therapy; Z87.891 Personal history of nicotine dependence; Z95.1 Presence of aortocoronary bypass graft; Z95.3 Presence of xenogenic heart valve
CPT/HCPCS: 11042; 36415; 74177; 80048; 83605; 84443; 85025; 88305; 99284; J7030; J7050; J7120; Q9967; A4216; J0744; J2405

== ENCOUNTER → 2023-03-22 | Outpatient (CLI) | payer MEDICARE, OTHER, SELFPAY ==
--- NOTE | 2023-03-22 14:19 | CR.HP_ITS ---
CR - History & Physical - General Arrival date:: 03/22/23 Arrival time:: 14:20 Date of Referral:: 03/16/23 Date of CR Evaluation:: 03/22/23 Referring Physician: Dr. Anurag Last Primary Diagnosis: S/P CABG - History of Present Cardiac Event Onset Date: Enter Onset Date of cardiac illnesses in Comment field below Coronary Artery Bypass Graft:: Yes - PERALES to LAD, SVG to OM1, SVG to RPDA, SVG diagonal 1, and AVR 01/21/23 Heart valve replacement or repair:: Yes - aortic valve - Sleep Disorder Evaluation Hx of Sleep Apnea: No Do you snore loudly (louder than talking or can be heard through closed doors)?: No Do you often feel tired/ fatigued/ sleepy during daytime?: No Has anyone observed you stop breathing during sleep?: No History of Hypertension (for STOP score): Yes - pt is now off of her BP meds STOP Results: Negative - Medications Home Medications: Ambulatory Orders Medication Instructions Recorded pregabalin 100 mg capsule (Lyrica) 100 mg PO DAILY neuropathy 04/28/18 levothyroxine 75 mcg tablet 75 mcg PO DAILY 04/23/20 acetaminophen 500 mg tablet 1,000 mg PO Q6H PRN Pain 03/04/23 amoxicillin 500 mg tablet 2,000 mg PO ONCE PRN dental #4 tabs 03/15/23 aspirin 81 mg chewable tablet 81 mg PO DAILY@0800 03/15/23 - Allergies Allergies/Adverse Reactions: Allergies gabapentin Allergy (Verified 03/15/23 11:38) Itching risedronate sodium [From Actonel] Adverse Reaction (Severe, Verified 03/15/23 11:38) chest pain rosuvastatin Adverse Reaction (Severe, Verified 03/15/23 11:38) SOB, myalgias, chest pain, leg cramps atorvastatin [From Lipitor] Adverse Reaction (Intermediate, Verified 03/15/23 11:38) Myalgias Advanced Directives - Advanced Directives 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 Living Will: Yes Advance Directives Information Provided: Yes Advance Directives on File: No DNR Order?:: No Past Medical History - Covid-19 Screening 65 years or older:: Yes Has a serious heart condition:: Yes - Past Medical Illness Medical History: Past Medical History (Last Reviewed 03/15/23 @ 11:42 by Vaishali Orozco) Abnormal stress test R94.39 CAD (coronary artery disease) I25.10 CABG at [facility] with PERALES to LAD, SVG to OM1, SVG to RPDA, and SVG diagonal 1 with AVR with 21 mm tissue valve (Magna Ease) 01/21/2023; Essential (primary) hypertension I10 Hyperlipidemia E78.5 Hypothyroidism E03.9 Intermittent palpitations R00.2 Left ventricular hypertrophy I51.7 Neuropathy G62.9 - Past Surgical History Surgical History: Past Surgical History (Last Reviewed 03/15/23 @ 11:42 by Vaishali Orozco) Aortic valve replaced Z95.2 History of aortic valve replacement with bioprosthetic valve Z95.3 AVR with 21 mm tissue valve (Magna Ease) 01/21/2023; History of cholecystectomy Z90.49 History of D&C Z98.890 Hx of CABG Z95.1 01/21/2023 [facility] Surgical History: cholecystectomy - Family History Summary Family History: Family History (Last Reviewed 03/15/23 @ 11:42 by Vaishali Orozco) Father , age74 CAD (coronary artery disease) Mother , Age 67 Cancer Ovarian Cancer Brother Colon cancer Sister Endometrial cancer Social History - Smoking History Smoking Status: Former smoker Years Smokin - less than a pack a day - Alcohol Use Alcohol Usage: No - Substance Abuse Hx Substance Use: No - Occupation Occupation (List type of work in comments):: Retired - Hobbies, Recreation, Social Activities Hobbies: Sewing Recreational Activities: I am able to engage in all my recreational activities Social Environment - Status Marital Status: - Current Living Arrangements Living Environment:: Spouse - Children How many children do you have?: 3 Do any of your children live nearby?: Yes - Safety Do you feel safe in your surroundings?: Yes - Assistance Do you need any assistance at home?: no Review of Systems - Review of Systems Hints: Right click = Denies ([place]). Left click = Reports ([place]) Review of Present Symptoms: Reports: Shortness of Breath with Exertion, Fatigue, Heart Arrhythmia/Irregularities, Appetite - Normal, Sleep - Normal. Denies: Shortness of Breath at Rest, PVD, Operative Discomfort, Angina, Wound Healing, Dizziness/Lightheadedness, Appetite - Special Diet, Sexual Changes - Pain Is Patient Pain Free?: Yes Risk Factor Assessment - Vital Signs Pulse Ox: 95 Blood Pressure: 148/90 - Pulse Pulse Rate: 89 - Obesity Height: 5 ft 3.5 in Weight:: 59.874 kg Weight in Pounds: 132.0 lbs Body Mass Index (BMI): 23.0 Nutritional Referral for Obesity: No - Physical Inactivity Physical Inactivity: None - Risk Stratification Risk Guidelines: Moderate Risk: Risk Factor for Diabetes, Risk Factor for Obesity, Risk Factor for Sedentary Lifestyle, Risk Factor for Depression, Highest Risk: Risk Factor for Smoking, Risk Factor for Dyslipidemia, Risk Factor for Hypertension - Family History Family History: Family History (Last Reviewed 03/15/23 @ 11:42 by Vaishali Orozco) Father CAD (coronary artery disease) Mother Cancer Brother Colon cancer Sister Endometrial cancer Motivation - Motivation to Participate On a scale of 1 to 10, how prepared are you to commit to attending program?: 9 What do you see as barriers to successfully being able to complete the program?: nothing What do you see as the benefits of succesfully completing the program? In other words, what do you hope to get out of participating in the program?: improved health Are there issues you are dealing with that will interfere with completing the program?: no Do you have a spouse or signficant other, family or friends who will help support you to complete the program?: yes
[2023-03-22 14:57] VITALS: BP 148/90; PULSE 89; O2SAT 95; BMI 23.0
--- NOTE | 2023-03-22 14:58 | CR.ITP_ITS ---
Diagnosis - General Information Admitting Diagnosis: S/P CABG Stage of change r/t lifestyle modifications:: Contemplation Gave educational material for:: Treating Heart Disease, Emotions & Heart Disease, Stress Management & Relaxation, Sleep Disorders & Heart Disease, How The Heart Works, What it means to have Heart Disease, How Coronary Artery Disease is Diagnosed, Heart Procedures, What Heart Medications Do, Risk Factors & Modifications, Living an Active Life, Nutrition - Education/Goals Cardiac Rehabilitation Goals: 1. Maintain the individual as the primary focus of care. 2. To improve the patient's quality of life. 3. Identification of cardiac risk factors and provide cardiac risk factor management. 4. Enhance the psychosocial status of the patient. 5. Reconditioning enough to allow the patient to resume customary activities. 6. Control symptoms of cardiac disease Personal Goals: Initial Assessment: Improve energy level, Get back to work, or to resume activities faster, Improve muscle strength and endurance, Control risk factors (learn risk factor modification) Scale for measuring improvement of personal goals: Enter appropriate number in Comments. 2 = Unchanged. 3 = Slightly Better. 4 = Moderate Improvement. 5 = Met my Goal - Diagnosis & Disease Process Outcomes/Goals: Pt IDs own risk factors & lifestyle modifications by Session 10, Verbalizes symptoms of angina & response by session 3., Pt independently manages, Other Additional Outcomes/Goals: Plan/Interventions: Assist Pt to ID & engage in lifestyle modification to reduce CVD risk, Instruct on individual risk factors, Review symptoms of angina & emergency actions, Review secondary diagnosis & identify educational needs., O ther see comment 30 day Reassessments:: Not Met 30 day Reassessments:: Not Met 30 day Reassessments:: Not Met 30 day Reassessments:: Not Met Final Reassessments:: Not Met - Safety Referral to Physical Therapy: No Referral to [facility] Case Management: No Fall Risk Assessed:: Yes Assistive Devices:: None Exercise - Initial Assessment - Visit Date of Eval: 03/22/23 - initial eval Mets: Pre-: >3 METS for 30 minutes by discharge, >5 METS for 30 minutes by discharge, >7 METS for 30 minutes by discharge, Unable to meet goal due to: (see comment below) - Physician Prescribed Exercise Modalities: Treadmill, Airdyne, NuStep, SciFit, Lateral Home Visit Field Care Manager Frequency: 3x/week for 12 weeks [36 sessions] Intensity: 60-80% of age predicted maximum heart rate reserve Current METSs:: 3 Target Heart Rate:: 88-101 Resting Blood Pressure: 148/90 EKG Type: SR-occasional ectopic beats - Outcomes & Goals Goals:: Verbalizes understanding of THR, RPE & goal METS by session 6, Documents in home exercise log/reports 30 min aerobic 5 day/wk by DC, Demonstrates acc urate pulse taking by DC, Other additional outcome/goals: see below - Intervention & Plan Exercise Program Goals: Instruct on personal THR & RPE, Instruct on MET level & personal MET goal, Show patient to take own pulse /validate performance until accurate, Instruct on home exercise, Other additional plan/int - Physical Activity Home Exercise Physical Activity - Home Exercise: Safe Exercise, Warm-up, Self-monitoring, Cool-Down, Home Exercise > 30 min Daily, Sitting Time <3 hours/daily - Outcomes & Goals Outcomes/Goals: Demonstrates correct Warm-up/exercise Cool-Down (S3) if = 2.5 METs, Verbalizes symptoms of exercise intolerance by Session 3 (S3), Demonstrate safe equipment use (S3) & follows exercise prescrition (6), Other: See below - Intervention & Plan Plan/Intervention: Instruct warm-up & cool-down if exercising at > 2 METs, In struct on symptoms of exercise intolerance & actions to take, Instruct & monitor on saf, Assess intial functional capacity & safety risk, Other See below Nutrition - Initial Assessment - Program Goals Nutrition Program Goals: LDL <100 optimal. 100 - 129 Near optimal. 130 - 159 Borderline High. 160 - 189 High. Total Cholesterol <200 desirable. 200 - 239 Borderline High. >/= 240 High. HDL < 40 Low >/=60 High. Triglycerides <150 desirable. <199 optimal. VlDL 5 - 40. HgbA1C <7%. BMI <25 Patient has diagnosis of Hyperlipidemia (ICD E78)?: Yes - Visit Date of Assessment:: 03/22/23 - initial eval - Cholesterol/Lipids (Other Core Measures) Determine presence & major risk factors that modify LDL goal: Cigarette smoking, Hypertension or hypertensive medication, Low HDL cholesterol <40 mg/dL*, Family history of premature CHD in Male < 55 years: female <65 yearsFa, Age men > 45 years; women >/= 55 years Outcomes/Goals: Pt IDs own risk factors & lifestyle modifications by Session 10, Verbalizes symptoms of angina & response by session 3., Pt independently manages, Other Additional Outcomes/Goals: Intervention/Plan: Advocate for lipid panel cholesterol medication if applicable, Instruct on personal lipid levels & lipid goals/NCEP guidelines, Instruct on cholesterol, Other additional plan/int Referral to dietitian:: Yes - Diabetes (Other Core Measures) Diabetes Type: Not Applicable - Weight Mgt (Other Care) Height: 5 ft 3.5 in Weight:: 59.874 kg BMI: 23.0 Diagnosis Overweight/Obesity BMI> 30% ICD-10 E66: No Diagnosis High BMI/Morbid Obesity BMI> 35% ICD-10 Z68: No Outcomes/Goals: Pt sets, maintains & shows weight loss goal & trend during rehab, Other additional outcomes/goals Intervention/Plan: Instruct on ideal BMI & set weight loss goal w/patient, Assist pt to ID & incorporate diet changes for weight loss by S9, Refer to Structured Weight Loss program as appropriate, Encourage goal of using 250- 300dcal per session for weight loss, Other additional plan/interventions - Healthy Eating Habits Will attend diet classes:: Yes Outcomes/Goals:: Consume diet rich in vegs,fruits,whole grain/high fiber,fish,lean meat, Limit sat/trans fats,cholesterol & added salts & sugars, Other additional outcome/goals: Intervention/Plan:: Assess current eating habits, Other Additional plan/interventions - Education Gave educational materials for:: Signs & symptoms of hypoglycemia, Signs & symptoms of hyperglycemia, Relate diabetes to coronary artery disease, Healthy eating Nutrition - 30-Day Assessment Nutrition - 60-Day Assessment Nutrition - 90-Day Assessment Nutrition - Final Assessment Core - Initial Assessment - Visit Date of Eval: 03/22/23 - initial eval - Medication Compliance Preventative Medication(s):: Aspirin, Statin/lipid Doesn?t believe in the benefits of treatment?: No Believes medications are unnecessary or harmful?: No Has a concern about medication side effects?: No Expresses concern over the cost of medications?: No Outcomes/Goals: Verbalizes medications,desired effect & common side effects @ DC, Pt self-reports following medication regimen, Keeps card in wallet w/medications listed by DC, Other additional outcome/goals: Interventions/plans: Instruct on medication effects & side effects, Review medication list w/patient every two weeks, Instruct importance of taking meds as ordered & assist problem solving, Other additional - Tobacco Use Tobacco Use: Non-smoker - stopped 40 years ago Do you use smokeless tobacco?: No - Hypertension Hypertension Diagnosis:: Hypertension ICD-10 I10 - pt is no longer on BP meds. Resting Blood Pressure:: 148/90 [place] [employer] Hypertension Guidelines: [place] [employer] Hypertension Guidelines. Normal BP Less than 120/80. Elevated BP 120/80. Hypertension Stage 1: BP 130-139/80-89. Hypertesnion Stage 2: BP 140 or higher/90 or higher. Hypertension Crisis: BP higher than 180/120 Outcomes/Goals: Able to verbalize/achieve optimal blood pressure <130/80, Incorporates diet changes & exercise for blood pressure control by DC, Other additional outcomes/goals Interventions/plan: Instruct on optimal blood pressure, hypertension & medications, Instruct on effects of sodium, alcohol, stress, exercise &hypertension, Other additional plan/interventions - Tobacco Cessation Referral Smoking Cessation Referral:: No Individual Education/Counseling:: No Education Schedule Given:: Yes Core - 30-Day Assessment Core - 60-Day Assessment Core - 90 Day Assessment Core - Final Assessment Psychosocial - Initial Assess - VIsit Date of Eval: 03/22/23 - initial eval History of previous Mental disease:: No - Outcomes/Goals: See list Psychosocial Outcomes/Goals:: ID's personal stressors & 2 strategies to manage stress by discharge, Other Additional outcome/goals: - Intervention/Plan: See List Interventions/Plan:: Assess stressors,coping strategies & signs of derpression on admission, Instruct/assist pt to develop coping & personal stress Mgt strategies, Refer to Behavioral Health if appropriate, Refer to Physician if appropriate, Instruct patient to recognize signs & symptoms of depression, Instruct patient to recog, Other additional plan/intervention Psychosocial - 30-Day Assess Psychosocial - 60-Day Assess Psychosocial - 90-Day Assess Psychosocial - Final Assessmen Patient Health Questionnaire Initial Assessment 1. Little interest or pleasure in doing things: Not at all 2. Feeling down, depressed, or hopeless: Not at all 3. Trouble falling or staying asleep, or sleeping too much: Not at all 4. Feeling tired or having little energy: Several days 5. Poor appetite or overeating: Several days 6. Feeling bad about yourself -- or that you are a failure or have let yourself or your family down: Not at all 7. Trouble concentrating on things, such as reading the newspaper or watching television: Not at all 8. Moving or speaking so slowly that other people could have noticed. Or the opposite - being so fidgety or restless that you have been moving around a lot more than usual: Not at all 9. Thoughts that you would be better off , or of hurting yourself in some way: Not at all How difficult have these problems made it for you to do your work, take care of things at home, or get along with other people?: Not difficult at all Total Score: 2 LEE-Q SV Test - Statements CAD is a disease of the arteries in the heart: False Examples of risk factors for heart disease: True Angina is chest pain or discomfort: True The benefits of resistance training include: True Eating more meat and dairy products: True Anti-platelet medications such as aspirin are important: True The only effective way to manage stress: False An exercise warm-up slowly increases heart rate: True Prepared, processed foods usually have high sodium: True Depression is common after a heart attack: True The statin medications lower cholesterol: True To control blood pressure, lower the amount of sodium: True If someone gets chest discomfort during walking: False Transfats are partially hydrogenated vegetable oils: True Sleep apnea that is not treated increases the risk: I Don't Know To control cholesterol, one should become a vegetarian: False Someone knows if he/she is exercising at the right level: True Diabetes cannot be prevented with exercise & health eating: False Stress is a large risk for heart attack: True A diet that can help lower blood pressure is rich in: True - Total Score Total Correct Responses: 18 Self-Efficacy Initial Assessment We would like to know how confident you are in doing certain activities. Please select your confidence level for:: Select your confidence level for the followi ng using the scale 1-10 where 1 is not at all confident and 10 is totally confident. Your score is the average of all 6 responses. Fatigue: How confident are you that you can keep the fatigue caused by your disease from interfering with the things you want to do? Select Number: 9 Physical Discomfort or Pain: How confident are you that you can keep the physical discomfort or pain of your disease from interfering with the things you want to do? Select Number: 8 Emotional Distress: How confident are you that you can keep the emotional distress caused by your disease from interfering with the things you want to do? Select Number: 8 Other Symptoms or Health Problems: How confident are you that you can keep other symptoms or health problems from interfering with the things you want to do? Select Number: 9 Different Tasks and Activities: How confident are you that you can do the different tasks and activities needed to manage your health condition so as to reduce your need to see a doctor? Select Number: 9 Medication: How confident are you that you can do things other than just taking medication to reduce how much your illness affects your everyday life? Select Number: 10 Total Score:: 8 Nutrition Survey - Nutrition Survey Initial Have you lost >10 lbs over the past 2 months without trying?: Yes Are you following a special diet at home for diabetes, low fat, or low salt?: No Are you interested in meeting with a dietitian for help understanding your diet?: Yes Do you eat less than 3 meals a day?: Yes Do you eat fatty meats (heart, sausage, ribs, etc), fried foods, desserts, large amounts of salad dressings, margarine, butter, or cheese most days?: No Do you have food allergies? [Enter types in comment field]: No Do you eat in restaurants more than 3 times a week?: No Do you season food with salt, seasoning salt, or garlic salt?: Yes Do you used canned, boxed, frozen meals, or soups, seasoning packets?: Yes Total Score:: 5
[2023-03-22 15:10] VITALS: BP 148/90; BMI 23.0
== END | disposition home or self-care (01) ==
LOC: CR 14:12
PROVIDERS: PCP Family Medicine; Referring Provider Internal Medicine Cardiovascular Disease; Visit Provider Internal Medicine Cardiovascular Disease
DX: I25.10 Atherosclerotic heart disease of native coronary artery without angina pectoris (principal)

== ENCOUNTER 2023-04-07 08:00 | Outpatient (RCR) | payer MEDICARE, OTHER, SELFPAY ==
[2023-03-22 15:10] VITALS: BMI 23.0
== END 2023-04-07 23:59 ==
LOC: CR 08:00
PROVIDERS: PCP Family Medicine; Referring Provider Internal Medicine Cardiovascular Disease; Visit Provider Internal Medicine Cardiovascular Disease
DX: I25.10 Atherosclerotic heart disease of native coronary artery without angina pectoris (principal); Z95.1 Presence of aortocoronary bypass graft
CPT/HCPCS: 93798

== ENCOUNTER 2023-04-07 09:30 | Outpatient (RCR) | payer MEDICARE, OTHER, SELFPAY ==
[2023-03-08 00:50] VITALS: BP 125/64; PULSE 91; RESP 18; TEMP 36.1
[2023-03-10 10:30] VITALS: BP 162/81; PULSE 90; RESP 16
--- NOTE | 2023-03-10 11:57 | PN.PCM_ITS ---
History of Present Illness Date of Service: 03/10/23 Chief Complaint: Follow-up on a open wound left lower leg in the calf History of Wound: 83-year-old female that had open heart surgery in January quadruple bypass. The day after surgery the spot of a white bubble showed up the next day. Denies any pain. Then it turned to like a black eschar. Was seen by her family doctor who had her soaking it with Joann soap. They also had tried putting an Neosporin ointment on it. Progress of Wound: Patient was approved for EpiFix. Measurements are slightly smaller we applied #1 today we will follow-up in a week to see how she does Subjective Subjective Patient is satisfied with getting the epi fix his Objective Data Objective Data Measures slightly smaller depth is still there no sign of any other infection she is developing cells in the base of the wound Vital Signs: Vital Signs Temp Pulse Resp BP O2 Del Method 97 F L 90 16 162/81 H Room Air 03/08/23 00:50 03/10/23 10:30 03/10/23 10:30 03/10/23 10:30 03/10/23 10:30 Oxygen Delivery Method Room Air Lab / Micro Data Attestation: I reviewed the patient's lab results. Physical Exam Narrative General: Alert, Oriented x3, Cooperative, No apparent distress HEENT: Atraumatic, PERRLA, EOMI, Normocephalic Oral: Moist Mucosa Neck: Supple, No JVD Lungs: Clear to auscultation, Normal air movement, No rhonchi, No wheeze, No rales Cardiovascular: Regular rate, Regular Rhythm, Normal S1, Normal S2, No murmurs Abdomen: Soft, nontender, Non-Distended, No Hepato-splenomegaly Extremities: No edema, Capillary Refill Less than 3 Seconds Skin: No rashes, No breakdown Musculoskeletal: No Tenderness to Palpation of Joints or Extremities Neurological: Cranial nerves II-XII grossly intact, Motor Exam 5/5 strength throughout, Sensory exam intact to light touch and pain Psych/Mental Status: Normal Affect, Appropriate Debridement Note Debridement Note Wound debrided: Left barrett traumatic puncture wound Type of Debridement: Excisional debridement Anesthesia Used: 5% Lidocaine Gel Depth: Down to and including healthy tissue Percentage of wound debrided: 100 Instrument Used: 3mm curette Tissue Removed: Fibrin Severity: Fat Layer Exposed Amount of bleeding with debridement: Mild Bleeding Controlled with: Compression and gauze Patient tolerated procedure: Patient tolerated procedure well Post-Debridement Measurements and Additional Note: Post-Debridement Measurements/Treatment - Nurse 1 - General Ulcer Assessment Start: 03/10/23 10:28 Freq: Status: Active Protocol: JOCELYN Activity Type Activity Date Activity User E-sign Co-sign Detail Recorded Client Recorded Date Recorded By Document 03/10/23 10:30 [facility] [id number] 03/10/23 10:35 [facility] 03/10/23 10:30 WC - Today's Visit Information Type of service Follow-up Visit (Physician/COMMERCIAL ESTIMATOR ) Arrival Mode Ambulatory Transfer Assistance None Patient Identification Verified (Name & Yes ) Patient Requires Transmission-Based No Precautions Vital Signs Pulse Rate (60-100) 90 Pulse Location Monitor Respiratory Rate (12-18) 16 Respiratory rate source Observation Oxygen Delivery Method Room Air Blood Pressure (90/60-120/80) 162/81 H Blood Pressure Mean (mm Hg) 108 Source Monitor Position Sitting Blood Pressure Location Left Arm History Since Last Visit- (Skip if this is Patient's initial visit) Have you changed medications since your No last visit? Any new allergies or adverse reactions No Had a fall/change in ADL's that may No increase risk of falls Signs or symptoms of abuse and/or No neglect since last visit Have you been in the hospital since your No last visit? Has dressing in place as prescribed Yes Has compression in place as prescribed Yes Has offloadiing in place as prescribed N/A Experienced any changes in pain level or No management Left Footwear Regular Shoe Right Footwear Regular Shoe Pain Scale: 0-10 Numeric Is Patient Pain Free? Yes - Nurse 1 - General Ulcer Measurement Start: 03/10/23 10:28 Freq: Status: Active Protocol: Activity Type Activity Date Activity User E-sign Co-sign Detail Recorded Client Recorded Date Recorded By Document 03/10/23 10:30 [facility] [id number] 03/10/23 10:35 [facility] 03/10/23 10:30 Wound Center Nurse 1 LLE medial -Combined with other wound No -Current Size (cm) - Length 1.3 -Current Size (cm) - Width 0.7 -Current Size (cm) - Depth 0.3 -Total Square Cm 0.91 -Date of Last Picture (Recall this 03/10/23 field) -Photo Taken Yes -Epithelialization None Present -Tunneling No -Undermining/Tunneling No -Circular Undermining No -Exudate Amt Medium -Exudate Type Serosanguineous -Wound Margin Distinct, Outline Attached -Granulation Amt Medium (34-66%) -Granulation Quality Red -Slough/Fibrin Yes -Necrosis Amt Medium (34-66%) -Necrotic Tissue Type Adherent Slough -Texture (Jody-wound Skin Appearance) Assessed, Scarring -Moisture (Jody-wound Skin Appearance) Assessed -Color (Jody-wound Skin Appearance) Assessed, Erythema -Temperature (Jody-wound Skin No Abnormality Appearance) (Pt Warm) -Tenderness on Palpation (Jody-wound No Skin Appearance) -Ulcer Cleansing Rinsed/ Irrigated with Saline -Foul Odor after Cleansing No -Anesthetic Used 5% Lidocaine Gel Lower Limb Edema Present Yes Left Calf (cm) 32.5 Left Ankle (cm) 21.2 WC - Nurse 2 - General Ulcer CM Notes Start: 03/10/23 10:28 Freq: Status: Active Protocol: Activity Type Activity Date Activity User E-sign Co-sign Detail Recorded Client Recorded Date Recorded By Document 03/10/23 10:49 MW [id number] 03/10/23 10:58 MW 03/10/23 10:49 Wound Center Nurse 2 LLE medial -Time 10:51 -Correct Patient Yes -Correct Side, Site, Position Yes -Correct Procedure Yes -Procedure Performed Yes -Type of Procedure Debridement -Clinical Debridement Subcutaneous -Tissue Removed Subcutaneous -Post Debridement (cm) - Length 1.3 -Post Debridement (cm) - Width 0.9 -Post Debridement (cm) - Depth 0.2 -Total Square (Post) (cm) 1.17 -Area of Debridement (cm) - Length 1.3 -Area of Debridement (cm) - Width 0.9 -Total Square (Area) (cm) 1.17 -Tunneling No -Undermining/Tunneling No -Circular Undermining No -Wound/Ulcer Outcome Not Healed -Ulcer Cleansing Rinsed/ Irrigated with Saline -Foul Odor after Cleansing No -Bioengineered Tissue Yes -Type of Bioengineered Tissue Epifix 18mm Disc -Expiration Date 11/08/27 -Product Lot Number [id number] -Percent Used 100 -Lot number of Saline Used [id number] -Bleeding Controlled with Pressure -Treatment Response Procedure Tolerated Well -Offloading No -Debridement - Subq, 1st 20sq cm No -Apply Skin Sub - 1st 25 sq cm - Legs 1 -Epifix 18mm Disc 3 Pain Scale: 0-10 Numeric Is Patient Pain Free? Yes - Nurse 3 - General Ulcer D/C NN Start: 03/10/23 10:28 Freq: Status: Active Protocol: Activity Type Activity Date Activity User E-sign Co-sign Detail Recorded Client Recorded Date Recorded By Document 03/10/23 11:17 [facility] [id number] 03/10/23 11:17 [facility] 03/10/23 11:17 Wound Care Center Nurse 3 LLE medial -Primary Dressing Applied Aquacel Extra -Other Dressing EPIFIX -Primary Dressing Covered/Secured with Dry Gauze & Roll Gauze, Secured with Tape -Aquacel Extra 1 Left -Tubular Bandage Double Layer -Size of Tubigrip Used Size D -Size D ($) 2 Treatment Response Procedure Tolerated Well Pain Scale: 0-10 Numeric Is Patient Pain Free? Yes - Visit Discharge Discharge Condition Stable Ambulatory Status Ambulatory Transportation Private Auto Accompanied by JES Assessment/Plan Assessment/Plan (1) Nonhealing nonsurgical wound: CODE(S): T14.8XXA - Other injury of unspecified body region, initial encounter PLAN: EpiFix #1 applied to wound base covered with veil Steri-Strips Aquacel extra and a dry dressing Patient is to continue using a double layer Tubigrip for compression Do not let the dressing get wet Follow-up in 1 week (2) Nonhealing nonsurgical wound with fat layer exposed: CODE(S): T14.8XXA - Other injury of unspecified body region, initial encounter
[2023-03-17 10:47] VITALS: BP 143/75; PULSE 91; RESP 16; TEMP 36.3
--- NOTE | 2023-03-17 11:50 | PCM.WC.PN ---
History of Present Illness Date of Service: 03/17/23 Chief Complaint: Follow-up on a open wound left lower leg in the calf History of Wound: 83-year-old female that had open heart surgery in January quadruple bypass. The day after surgery the spot of a white bubble showed up the next day. Denies any pain. Then it turned to like a black eschar. Was seen by her family doctor who had her soaking it with Joann soap. They also had tried putting an Neosporin ointment on it. Progress of Wound: Patient was approved for EpiFix. Measurements are slightly smaller we applied #2 wound is healing well using the EpiFix. Subjective Subjective Patient is pleased with outcomes Objective Data Objective Data Doing well filling in nicely using the epi fix surrounding tissues flush collar no erythema or sign of infection Vital Signs: Vital Signs Temp Pulse Resp BP O2 Del Method 97.3 F L 91 16 143/75 H Room Air 03/17/23 10:47 03/17/23 10:47 03/17/23 10:47 03/17/23 10:47 03/17/23 10:47 Oxygen Delivery Method Room Air Debridement Note Debridement Note Wound debrided: Left medial left lower leg traumatic open wound nonhealing Type of Debridement: Excisional debridement Anesthesia Used: 5% Lidocaine Gel Depth: Down to and including healthy tissue Percentage of wound debrided: 100 Instrument Used: 3mm curette Tissue Removed: Fibrin and some devitalized tissue Severity: Fat Layer Exposed Amount of bleeding with debridement: Mild Bleeding Controlled with: Compression and gauze Patient tolerated procedure: Patient tolerated procedure well Post-Debridement Measurements and Additional Note: Post-Debridement Measurements/Treatment - Nurse 1 - General Ulcer Assessment Start: 03/10/23 10:28 Freq: Status: Active Protocol: TAI.LOWMIKAELAT Activity Type Activity Date Activity User E-sign Co-sign Detail Recorded Client Recorded Date Recorded By Document 03/10/23 10:30 [facility] [id number] 03/10/23 10:35 [facility] Document 03/17/23 10:47 [facility] [id number] 03/17/23 10:55 BM 03/10/23 03/17/23 10:30 10:47 - Today's Visit Information Type of service Follow-up Visit Follow-up Visit (Physician/RUBBER TIRE AND TUBES SUPERVISOR (Physician/RUBBER TIRE AND TUBES SUPERVISOR ) ) Arrival Mode Ambulatory Ambulatory Transfer Assistance None None Patient Identification Verified (Name & Yes Yes ) Patient Requires Transmission-Based No No Precautions Vital Signs Temperature (97.8 F-99.1 F) 97.3 F L Temperature Source Temporal Pulse Rate (60-100) 90 91 Pulse Location Monitor Monitor Respiratory Rate (12-18) 16 16 Respiratory rate source Observation Observation Oxygen Delivery Method Room Air Room Air Blood Pressure (90/60-120/80) 162/81 H 143/75 H Blood Pressure Mean (mm Hg) 108 97 Source Monitor Monitor Position Sitting Sitting Blood Pressure Location Left Arm Left Arm History Since Last Visit- (Skip if this is Patient's initial visit) Have you changed medications since your No No last visit? Any new allergies or adverse reactions No No Had a fall/change in ADL's that may No No increase risk of falls Signs or symptoms of abuse and/or No No neglect since last visit Have you been in the hospital since your No No last visit? Has dressing in place as prescribed Yes Yes Has compression in place as prescribed Yes Yes Has offloadiing in place as prescribed N/A N/A Experienced any changes in pain level or No No management Left Footwear Regular Shoe Regular Shoe Right Footwear Regular Shoe Regular Shoe Pain Scale: 0-10 Numeric Is Patient Pain Free? Yes Yes WC - Nurse 1 - General Ulcer Measurement Start: 03/10/23 10:28 Freq: Status: Active Protocol: Activity Type Activity Date Activity User E-sign Co-sign Detail Recorded Client Recorded Date Recorded By Document 03/10/23 10:30 [facility] [id number] 03/10/23 10:35 [facility] Document 03/17/23 10:47 [facility] [id number] 03/17/23 10:55 [facility] 03/10/23 03/17/23 10:30 10:47 Wound Center Nurse 1 LLE medial -Combined with other wound No No -Current Size (cm) - Length 1.3 1.1 -Current Size (cm) - Width 0.7 0.8 -Current Size (cm) - Depth 0.3 0.2 -Total Square Cm 0.91 0.88 -Date of Last Picture (Recall this 03/10/23 03/17/23 field) -Photo Taken Yes Yes -Epithelialization None Present Small 1-33% -Tunneling No No -Undermining/Tunneling No No -Circular Undermining No No -Exudate Amt Medium Small -Exudate Type Serosanguineous Serosanguineous -Wound Margin Distinct, Distinct, Outline Outline Attached Attached -Granulation Amt Medium (34-66%) Large (67-100%) -Granulation Quality Red Red -Slough/Fibrin Yes Yes -Necrosis Amt Medium (34-66%) Small (1-33%) -Necrotic Tissue Type Adherent Slough Adherent Slough -Texture (Jody-wound Skin Appearance) Assessed, Assessed, Scarring Scarring -Moisture (Jody-wound Skin Appearance) Assessed Assessed -Color (Jody-wound Skin Appearance) Assessed, Assessed Erythema -Temperature (Jody-wound Skin No Abnormality No Abnormality Appearance) (Pt Warm) (Pt Warm) -Tenderness on Palpation (Jody-wound No No Skin Appearance) -Ulcer Cleansing Rinsed/ Soap and Water Irrigated with Saline -Foul Odor after Cleansing No No -Anesthetic Used 5% Lidocaine 5% Lidocaine Gel Gel Lower Limb Edema Present Yes Yes Left Calf (cm) 32.5 32.7 Left Ankle (cm) 21.2 20 WC - Nurse 2 - General Ulcer CM Notes Start: 03/10/23 10:28 Freq: Status: Active Protocol: Activity Type Activity Date Activity User E-sign Co-sign Detail Recorded Client Recorded Date Recorded By Document 03/10/23 10:49 MW [id number] 03/10/23 10:58 MW Document 03/17/23 11:02 MW [id number] 03/17/23 11:07 MW 03/10/23 03/17/23 10:49 11:02 Wound Center Nurse 2 LLE medial -Time 10:51 11:02 -Correct Patient Yes Yes -Correct Side, Site, Position Yes Yes -Correct Procedure Yes Yes -Procedure Performed Yes Yes -Type of Procedure Debridement Debridement -Clinical Debridement Subcutaneous Subcutaneous -Tissue Removed Subcutaneous Subcutaneous -Post Debridement (cm) - Length 1.3 1.0 -Post Debridement (cm) - Width 0.9 0.9 -Post Debridement (cm) - Depth 0.2 0.2 -Total Square (Post) (cm) 1.17 0.90 -Area of Debridement (cm) - Length 1.3 1.0 -Area of Debridement (cm) - Width 0.9 0.9 -Total Square (Area) (cm) 1.17 0.90 -Tunneling No No -Undermining/Tunneling No No -Circular Undermining No No -Wound/Ulcer Outcome Not Healed Not Healed -Ulcer Cleansing Rinsed/ Rinsed/ Irrigated with Irrigated with Saline Saline -Foul Odor after Cleansing No No -Bioengineered Tissue Yes No -Type of Bioengineered Tissue Epifix 18mm Epifix 18mm Disc Disc -Expiration Date 11/08/27 11/08/27 -Product Lot Number [id number] -Percent Used 100 100 -Lot number of Saline Used [id number] -Bleeding Controlled with Pressure Pressure -Treatment Response Procedure Procedure Tolerated Well Tolerated Well -Offloading No No -Debridement - Subq, 1st 20sq cm No No -Apply Skin Sub - 1st 25 sq cm - Legs 1 1 -Epifix 18mm Disc 3 3 Pain Scale: 0-10 Numeric Is Patient Pain Free? Yes Yes WC - Nurse 3 - General Ulcer D/C NN Start: 03/10/23 10:28 Freq: Status: Active Protocol: Activity Type Activity Date Activity User E-sign Co-sign Detail Recorded Client Recorded Date Recorded By Document 03/10/23 11:17 [facility] [id number] 03/10/23 11:17 [facility] Document 03/17/23 11:13 MW [id number] 03/17/23 11:14 MW 03/10/23 03/17/23 11:17 11:13 Wound Care Center Nurse 3 LLE medial -Ulcer Cleansing Not Cleansed -Foul Odor after Cleansing No -Negative Pressure Wound Therapy N/A -Primary Dressing Applied Aquacel Extra Aquacel Extra -Other Dressing EPIFIX -Primary Dressing Covered/Secured with Dry Gauze & Dry Gauze & Roll Gauze, Roll Gauze, Secured with Secured with Tape Tape -Aquacel Extra 1 1 Left -Lotion applied to leg before No compression wrap -Tubular Bandage Double Layer Single Layer -Size of Tubigrip Used Size D Size D -Size D ($) 2 2 Treatment Response Procedure Procedure Tolerated Well Tolerated Well Pain Scale: 0-10 Numeric Is Patient Pain Free? Yes Yes Teaching: Wound Center Dressing Your Wound -Person Taught Patient -Teaching Method Discussion -Response to teaching Verbalize understanding WC - Visit Discharge Discharge Condition Stable Stable Ambulatory Status Ambulatory Ambulatory Transportation Private Auto Private Auto Accompanied by JES self Medication Reconcilliation completed & No provided to patient/care provider Clinical Summary of Care Provided Yes Assessment/Plan Assessment/Plan (1) Nonhealing nonsurgical wound: CODE(S): T14.8XXA - Other injury of unspecified body region, initial encounter PLAN: EpiFix #2 applied to wound base covered with veil Steri-Strips Aquacel extra and a dry dressing Patient is to continue using a double layer Tubigrip for compression Do not let the dressing get wet Follow-up in 1 week (2) Nonhealing nonsurgical wound with fat layer exposed: CODE(S): T14.8XXA - Other injury of unspecified body region, initial encounter
[2023-03-24 11:07] VITALS: BP 129/60; PULSE 89; RESP 18; TEMP 35.5
--- NOTE | 2023-03-24 11:40 | PN.PCM_ITS ---
History of Present Illness Date of Service: 03/24/23 Chief Complaint: Follow-up on a open wound left lower leg in the calf History of Wound: 83-year-old female that had open heart surgery in January quadruple bypass. The day after surgery the spot of a white bubble showed up the next day. Denies any pain. Then it turned to like a black eschar. Was seen by her family doctor who had her soaking it with Joann soap. They also had tried putting an Neosporin ointment on it. Progress of Wound: EpiFix #3 applied to the wound base. The lower half of the wound is filled and and is flat and flesh color. She has less pain filling in nicely no sign of infection surrounding skin is all normal. Discussed with patient probably only has 1-2 more that would probably heal it. Subjective Subjective Patient is very happy with outcomes Objective Data Objective Data EpiFix is filling in nicely patient is compressing well leg is much thinner than what was which is really helping with healing Vital Signs: Vital Signs Temp Pulse Resp BP O2 Del Method 96 F L 89 18 129/60 H Room Air 03/24/23 11:07 03/24/23 11:07 03/24/23 11:07 03/24/23 11:07 03/17/23 10:47 Oxygen Delivery Method Room Air Lab / Micro Data Attestation: I reviewed the patient's lab results. Physical Exam Narrative General: Alert, Oriented x3, Cooperative, No apparent distress HEENT: Atraumatic, PERRLA, EOMI, Normocephalic Oral: Moist Mucosa Neck: Supple, No JVD Lungs: Clear to auscultation, Normal air movement, No rhonchi, No wheeze, No rales Cardiovascular: Regular rate, Regular Rhythm, Normal S1, Normal S2, No murmurs Abdomen: Soft, nontender, Non-Distended, No Hepato-splenomegaly Extremities: No edema, Capillary Refill Less than 3 Seconds Skin: No rashes, No breakdown Musculoskeletal: No Tenderness to Palpation of Joints or Extremities Neurological: Cranial nerves II-XII grossly intact, Motor Exam 5/5 strength throughout, Sensory exam intact to light touch and pain Psych/Mental Status: Normal Affect, Appropriate Debridement Note Debridement Note Wound debrided: Left lower extremity barrett from trauma Type of Debridement: Excisional debridement Anesthesia Used: 5% Lidocaine Gel Depth: in the subcutaneous layer Percentage of wound debrided: 100 Instrument Used: 3mm curette Tissue Removed: Fibrin Severity: Fat Layer Exposed Amount of bleeding with debridement: Mild Bleeding Controlled with: Compression and gauze Patient tolerated procedure: Patient tolerated procedure well Post-Debridement Measurements and Additional Note: Post-Debridement Measurements/Treatment - Nurse 1 - General Ulcer Assessment Start: 03/10/23 10:28 Freq: Status: Active Protocol: JOCELYN Activity Type Activity Date Activity User E-sign Co-sign Detail Recorded Client Recorded Date Recorded By Document 03/10/23 10:30 [facility] [id number] 03/10/23 10:35 [facility] Document 03/17/23 10:47 [facility] [id number] 03/17/23 10:55 [facility] Document 03/24/23 11:07 RB [id number] 03/24/23 11:09 RB 03/10/23 03/17/23 03/24/23 10:30 10:47 11:07 - Today's Visit Information Type of service Follow-up Visit Follow-up Visit Follow-up Visit (Physician/CONSULTING TECHNICAL DIRECTOR (Physician/CONSULTING TECHNICAL DIRECTOR (Physician/CONSULTING TECHNICAL DIRECTOR ) ) ) Arrival Mode Ambulatory Ambulatory Ambulatory Transfer Assistance None None None Patient Identification Verified (Name & Yes Yes Yes ) Patient Requires Transmission-Based No No No Precautions Vital Signs Temperature (97.8 F-99.1 F) 97.3 F L 96 F L Temperature Source Temporal Temporal Pulse Rate (60-100) 90 91 89 Pulse Location Monitor Monitor Monitor Respiratory Rate (12-18) 16 16 18 Respiratory rate source Observation Observation Observation Oxygen Delivery Method Room Air Room Air Blood Pressure (90/60-120/80) 162/81 H 143/75 H 129/60 H Blood Pressure Mean (mm Hg) 108 97 83 Source Monitor Monitor Monitor Position Sitting Sitting Semi-Fowlers Blood Pressure Location Left Arm Left Arm Left Arm History Since Last Visit- (Skip if this is Patient's initial visit) Have you changed medications since your No No No last visit? Any new allergies or adverse reactions No No No Had a fall/change in ADL's that may No No No increase risk of falls Signs or symptoms of abuse and/or No No No neglect since last visit Have you been in the hospital since your No No No last visit? Has dressing in place as prescribed Yes Yes Yes Has compression in place as prescribed Yes Yes Yes Has offloadiing in place as prescribed N/A N/A No Experienced any changes in pain level or No No No management Left Footwear Regular Shoe Regular Shoe Right Footwear Regular Shoe Regular Shoe Pain Scale: 0-10 Numeric Is Patient Pain Free? Yes Yes Yes WC - Nurse 1 - General Ulcer Measurement Start: 03/10/23 10:28 Freq: Status: Active Protocol: Activity Type Activity Date Activity User E-sign Co-sign Detail Recorded Client Recorded Date Recorded By Document 03/10/23 10:30 [facility] [id number] 03/10/23 10:35 [facility] Document 03/17/23 10:47 [facility] [id number] 03/17/23 10:55 [facility] Document 03/24/23 11:07 RB [id number] 03/24/23 11:09 RB 03/10/23 03/17/23 03/24/23 10:30 10:47 11:07 Wound Center Nurse 1 LLE medial -Combined with other wound No No No -Current Size (cm) - Length 1.3 1.1 1.2 -Current Size (cm) - Width 0.7 0.8 0.8 -Current Size (cm) - Depth 0.3 0.2 0.1 -Total Square Cm 0.91 0.88 0.96 -Date of Last Picture (Recall this 03/10/23 03/17/23 field) -Photo Taken Yes Yes Yes -Epithelialization None Present Small 1-33% -Tunneling No No No -Undermining/Tunneling No No No -Circular Undermining No No No -Exudate Amt Medium Small Medium -Exudate Type Serosanguineous Serosanguineous Serosanguineous -Wound Margin Distinct, Distinct, Distinct, Outline Outline Outline Attached Attached Attached -Granulation Amt Medium (34-66%) Large (67-100%) Medium (34-66%) -Granulation Quality Red Red [place] -Slough/Fibrin Yes Yes Yes -Necrosis Amt Medium (34-66%) Small (1-33%) Medium (34-66%) -Necrotic Tissue Type Adherent Slough Adherent Slough Adherent Slough -Structure Exposed N/A -Texture (Jody-wound Skin Appearance) Assessed, Assessed, Assessed Scarring Scarring -Moisture (Jody-wound Skin Appearance) Assessed Assessed Assessed -Color (Jody-wound Skin Appearance) Assessed, Assessed Assessed Erythema -Temperature (Jody-wound Skin No Abnormality No Abnormality No Abnormality Appearance) (Pt Warm) (Pt Warm) (Pt Warm) -Tenderness on Palpation (Jody-wound No No No Skin Appearance) -Ulcer Cleansing Rinsed/ Soap and Water Wound Cleanser Irrigated with Saline -Foul Odor after Cleansing No No No -Anesthetic Used 5% Lidocaine 5% Lidocaine 5% Lidocaine Gel Gel Gel Lower Limb Edema Present Yes Yes Yes Left Calf (cm) 32.5 32.7 33.5 Left Ankle (cm) 21.2 20 20.5 WC - Nurse 2 - General Ulcer CM Notes Start: 03/10/23 10:28 Freq: Status: Active Protocol: Activity Type Activity Date Activity User E-sign Co-sign Detail Recorded Client Recorded Date Recorded By Document 03/10/23 10:49 MW [id number] 03/10/23 10:58 MW Document 03/17/23 11:02 MW [id number] 03/17/23 11:07 MW 03/10/23 03/17/23 10:49 11:02 Wound Center Nurse 2 LLE medial -Time 10:51 11:02 -Correct Patient Yes Yes -Correct Side, Site, Position Yes Yes -Correct Procedure Yes Yes -Procedure Performed Yes Yes -Type of Procedure Debridement Debridement -Clinical Debridement Subcutaneous Subcutaneous -Tissue Removed Subcutaneous Subcutaneous -Post Debridement (cm) - Length 1.3 1.0 -Post Debridement (cm) - Width 0.9 0.9 -Post Debridement (cm) - Depth 0.2 0.2 -Total Square (Post) (cm) 1.17 0.90 -Area of Debridement (cm) - Length 1.3 1.0 -Area of Debridement (cm) - Width 0.9 0.9 -Total Square (Area) (cm) 1.17 0.90 -Tunneling No No -Undermining/Tunneling No No -Circular Undermining No No -Wound/Ulcer Outcome Not Healed Not Healed -Ulcer Cleansing Rinsed/ Rinsed/ Irrigated with Irrigated with Saline Saline -Foul Odor after Cleansing No No -Bioengineered Tissue Yes No -Type of Bioengineered Tissue Epifix 18mm Epifix 18mm Disc Disc -Expiration Date 11/08/27 11/08/27 -Product Lot Number [id number] -Percent Used 100 100 -Lot number of Saline Used [id number] -Bleeding Controlled with Pressure Pressure -Treatment Response Procedure Procedure Tolerated Well Tolerated Well -Offloading No No -Debridement - Subq, 1st 20sq cm No No -Apply Skin Sub - 1st 25 sq cm - Legs 1 1 -Epifix 18mm Disc 3 3 Pain Scale: 0-10 Numeric Is Patient Pain Free? Yes Yes - Nurse 3 - General Ulcer D/C NN Start: 03/10/23 10:28 Freq: Status: Active Protocol: Activity Type Activity Date Activity User E-sign Co-sign Detail Recorded Client Recorded Date Recorded By Document 03/10/23 11:17 [facility] [id number] 03/10/23 11:17 BMF Document 03/17/23 11:13 MW [id number] 03/17/23 11:14 MW Document 03/24/23 11:24 RB [id number] 03/24/23 11:26 RB 03/10/23 03/17/23 03/24/23 11:17 11:13 11:24 Wound Care Center Nurse 3 LLE medial -Ulcer Cleansing Not Cleansed -Foul Odor after Cleansing No -Negative Pressure Wound Therapy N/A -Primary Dressing Applied Aquacel Extra Aquacel Extra -Other Dressing EPIFIX -Primary Dressing Covered/Secured with Dry Gauze & Dry Gauze & Dry Gauze,Dry Roll Gauze, Roll Gauze, Gauze & Roll Secured with Secured with Gauze,Secured Tape Tape with Tape -Aquacel Extra 1 1 Left -Lotion applied to leg before No compression wrap -Tubular Bandage Double Layer Single Layer Single Layer -Size of Tubigrip Used Size D Size D Size D -Size D ($) 2 2 1 Treatment Response Procedure Procedure Procedure Tolerated Well Tolerated Well Tolerated Well Pain Scale: 0-10 Numeric Is Patient Pain Free? Yes Yes Yes Teaching: Wound Center Dressing Your Wound -Person Taught Patient Patient -Teaching Method Discussion Discussion, Demonstration -Response to teaching Verbalize Verbalize understanding understanding - Visit Discharge Discharge Condition Stable Stable Stable Ambulatory Status Ambulatory Ambulatory Ambulatory Transportation Private Auto Private Auto Private Auto Accompanied by JES self Medication Reconcilliation completed & No No provided to patient/care provider Clinical Summary of Care Provided Yes Yes Assessment/Plan Assessment/Plan (1) Nonhealing nonsurgical wound: CODE(S): T14.8XXA - Other injury of unspecified body region, initial encounter PLAN: EpiFix #3 applied to wound base covered with veil Steri-Strips Aquacel extra and a dry dressing Patient is to continue using a double layer Tubigrip for compression Do not let the dressing get wet Follow-up in 1 week (2) Nonhealing nonsurgical wound with fat layer exposed: CODE(S): T14.8XXA - Other injury of unspecified body region, initial encounter
[2023-03-31 10:16] VITALS: BP 135/57; PULSE 69; RESP 18; TEMP 36.4
--- NOTE | 2023-03-31 12:28 | PCM.WC.PN ---
History of Present Illness Date of Service: 03/31/23 Chief Complaint: Follow-up on a open wound left lower leg in the calf History of Wound: 83-year-old female that had open heart surgery in January quadruple bypass. The day after surgery the spot of a white bubble showed up the next day. Denies any pain. Then it turned to like a black eschar. Was seen by her family doctor who had her soaking it with Joann soap. They also had tried putting an Neosporin ointment on it. Progress of Wound: EpiFix #4applied to the wound base. The lower half of the wound is filled and and is flat and flesh color. She has less pain filling in nicely no sign of infection surrounding skin is all normal. Discussed with patient probably only has 1-2 more that would probably heal it. Subjective Subjective Patient is very pleased with outcomes Objective Data Objective Data Patient just has like 3 small dots that need to be healed again to give her last 1 she should be healed by next week Vital Signs: Vital Signs Temp Pulse Resp BP O2 Del Method 97.5 F L 69 18 135/57 H Room Air 03/31/23 10:16 03/31/23 10:16 03/31/23 10:16 03/31/23 10:16 03/17/23 10:47 Oxygen Delivery Method Room Air Lab / Micro Data Attestation: I reviewed the patient's lab results. Physical Exam Narrative General: Alert, Oriented x3, Cooperative, No apparent distress HEENT: Atraumatic, PERRLA, EOMI, Normocephalic Oral: Moist Mucosa Neck: Supple, No JVD Lungs: Clear to auscultation, Normal air movement, No rhonchi, No wheeze, No rales Cardiovascular: Regular rate, Regular Rhythm, Normal S1, Normal S2, No murmurs Abdomen: Soft, nontender, Non-Distended, No Hepato-splenomegaly Extremities: No edema, Capillary Refill Less than 3 Seconds Skin: No rashes, No breakdown Musculoskeletal: No Tenderness to Palpation of Joints or Extremities Neurological: Cranial nerves II-XII grossly intact, Motor Exam 5/5 strength throughout, Sensory exam intact to light touch and pain Psych/Mental Status: Normal Affect, Appropriate Debridement Note Debridement Note No debridement was completed: No debridement was completed today Post-Debridement Measurements and Additional Note: Post-Debridement Measurements/Treatment WC - Nurse 1 - General Ulcer Assessment Start: 03/10/23 10:28 Freq: Status: Active Protocol: JOCELYN Activity Type Activity Date Activity User E-sign Co-sign Detail Recorded Client Recorded Date Recorded By Document 03/10/23 10:30 [facility] [id number] 03/10/23 10:35 BMF Document 03/17/23 10:47 BMF [id number] 03/17/23 10:55 BMF Document 03/24/23 11:07 RB [id number] 03/24/23 11:09 RB Document 03/31/23 10:16 RB [id number] 03/31/23 10:19 RB 03/10/23 03/17/23 03/24/23 10:30 10:47 11:07 WC - Today's Visit Information Type of service Follow-up Visit Follow-up Visit Follow-up Visit (Physician/POULTRY HATCHERY SUPERVISOR (Physician/POULTRY HATCHERY SUPERVISOR (Physician/POULTRY HATCHERY SUPERVISOR ) ) ) Arrival Mode Ambulatory Ambulatory Ambulatory Transfer Assistance None None None Patient Identification Verified (Name & Yes Yes Yes ) Patient Requires Transmission-Based No No No Precautions Vital Signs Temperature (97.8 F-99.1 F) 97.3 F L 96 F L Temperature Source Temporal Temporal Pulse Rate (60-100) 90 91 89 Pulse Location Monitor Monitor Monitor Respiratory Rate (12-18) 16 16 18 Respiratory rate source Observation Observation Observation Oxygen Delivery Method Room Air Room Air Blood Pressure (90/60-120/80) 162/81 H 143/75 H 129/60 H Blood Pressure Mean (mm Hg) 108 97 83 Source Monitor Monitor Monitor Position Sitting Sitting Semi-Fowlers Blood Pressure Location Left Arm Left Arm Left Arm History Since Last Visit- (Skip if this is Patient's initial visit) Have you changed medications since your No No No last visit? Any new allergies or adverse reactions No No No Had a fall/change in ADL's that may No No No increase risk of falls Signs or symptoms of abuse and/or No No No neglect since last visit Have you been in the hospital since your No No No last visit? Has dressing in place as prescribed Yes Yes Yes Has compression in place as prescribed Yes Yes Yes Has offloadiing in place as prescribed N/A N/A No Experienced any changes in pain level or No No No management Left Footwear Regular Shoe Regular Shoe Right Footwear Regular Shoe Regular Shoe Pain Scale: 0-10 Numeric Is Patient Pain Free? Yes Yes Yes 03/31/23 10:16 - Today's Visit Information Type of service Follow-up Visit (Physician/POULTRY HATCHERY SUPERVISOR ) Arrival Mode Ambulatory Transfer Assistance None Patient Identification Verified (Name & Yes ) Patient Requires Transmission-Based No Precautions Vital Signs Temperature (97.8 F-99.1 F) 97.5 F L Temperature Source Temporal Pulse Rate (60-100) 69 Pulse Location Monitor Respiratory Rate (12-18) 18 Respiratory rate source Observation Oxygen Delivery Method Blood Pressure (90/60-120/80) 135/57 H Blood Pressure Mean (mm Hg) 83 Source Monitor Position Semi-Fowlers Blood Pressure Location Left Arm History Since Last Visit- (Skip if this is Patient's initial visit) Have you changed medications since your No last visit? Any new allergies or adverse reactions No Had a fall/change in ADL's that may No increase risk of falls Signs or symptoms of abuse and/or No neglect since last visit Have you been in the hospital since your No last visit? Has dressing in place as prescribed Yes Has compression in place as prescribed Yes Has offloadiing in place as prescribed No Experienced any changes in pain level or No management Left Footwear Right Footwear Pain Scale: 0-10 Numeric Is Patient Pain Free? Yes - Nurse 1 - General Ulcer Measurement Start: 03/10/23 10:28 Freq: Status: Active Protocol: Activity Type Activity Date Activity User E-sign Co-sign Detail Recorded Client Recorded Date Recorded By Document 03/10/23 10:30 [facility] [id number] 03/10/23 10:35 [facility] Document 03/17/23 10:47 [facility] [id number] 03/17/23 10:55 BM Document 03/24/23 11:07 RB [id number] 03/24/23 11:09 RB Document 03/31/23 10:16 RB [id number] 03/31/23 10:19 RB 03/10/23 03/17/23 03/24/23 10:30 10:47 11:07 Wound Center Nurse 1 LLE medial -Combined with other wound No No No -Current Size (cm) - Length 1.3 1.1 1.2 -Current Size (cm) - Width 0.7 0.8 0.8 -Current Size (cm) - Depth 0.3 0.2 0.1 -Total Square Cm 0.91 0.88 0.96 -Date of Last Picture (Recall this 03/10/23 03/17/23 field) -Photo Taken Yes Yes Yes -Epithelialization None Present Small 1-33% -Tunneling No No No -Undermining/Tunneling No No No -Circular Undermining No No No -Exudate Amt Medium Small Medium -Exudate Type Serosanguineous Serosanguineous Serosanguineous -Wound Margin Distinct, Distinct, Distinct, Outline Outline Outline Attached Attached Attached -Granulation Amt Medium (34-66%) Large (67-100%) Medium (34-66%) -Granulation Quality Red [place] -Slough/Fibrin Yes Yes Yes -Necrosis Amt Medium (34-66%) Small (1-33%) Medium (34-66%) -Necrotic Tissue Type Adherent Slough Adherent Slough Adherent Slough -Structure Exposed N/A -Texture (Jody-wound Skin Appearance) Assessed, Assessed, Assessed Scarring Scarring -Moisture (Jody-wound Skin Appearance) Assessed Assessed Assessed -Color (Jody-wound Skin Appearance) Assessed, Assessed Assessed Erythema -Temperature (Jody-wound Skin No Abnormality No Abnormality No Abnormality Appearance) (Pt Warm) (Pt Warm) (Pt Warm) -Tenderness on Palpation (Jody-wound No No No Skin Appearance) -Ulcer Cleansing Rinsed/ Soap and Water Wound Cleanser Irrigated with Saline -Foul Odor after Cleansing No No No -Anesthetic Used 5% Lidocaine 5% Lidocaine 5% Lidocaine Gel Gel Gel Lower Limb Edema Present Yes Yes Yes Left Calf (cm) 32.5 32.7 33.5 Left Ankle (cm) 21.2 20 20.5 03/31/23 10:16 Wound Center Nurse 1 LLE medial -Combined with other wound No -Current Size (cm) - Length 0.9 -Current Size (cm) - Width 0.6 -Current Size (cm) - Depth 0.1 -Total Square Cm 0.54 -Date of Last Picture (Recall this field) -Photo Taken Yes -Epithelialization -Tunneling No -Undermining/Tunneling No -Circular Undermining No -Exudate Amt Medium -Exudate Type Serosanguineous -Wound Margin Distinct, Outline Attached -Granulation Amt Medium (34-66%) -Granulation Quality [place] -Slough/Fibrin Yes -Necrosis Amt Medium (34-66%) -Necrotic Tissue Type Adherent Slough -Structure Exposed N/A -Texture (Jody-wound Skin Appearance) Assessed, Scarring -Moisture (Jody-wound Skin Appearance) Assessed -Color (Jody-wound Skin Appearance) Assessed -Temperature (Jody-wound Skin No Abnormality Appearance) (Pt Warm) -Tenderness on Palpation (Jody-wound No Skin Appearance) -Ulcer Cleansing Wound Cleanser -Foul Odor after Cleansing No -Anesthetic Used 5% Lidocaine Gel Lower Limb Edema Present Yes Left Calf (cm) 33.2 Left Ankle (cm) 20 WC - Nurse 2 - General Ulcer CM Notes Start: 03/10/23 10:28 Freq: Status: Active Protocol: Activity Type Activity Date Activity User E-sign Co-sign Detail Recorded Client Recorded Date Recorded By Document 03/10/23 10:49 MW [id number] 03/10/23 10:58 MW Document 03/17/23 11:02 MW [id number] 03/17/23 11:07 MW Document 03/24/23 11:[address] PL [id number] 03/24/23 11:46 PL Document 03/31/23 11:01 MW [id number] 03/31/23 11:04 MW 03/10/23 03/17/23 03/24/23 10:49 11:02 11:45 Wound Center Nurse 2 LLE medial -Time 10:51 11:02 11:11 -Correct Patient Yes Yes Yes -Correct Side, Site, Position Yes Yes Yes -Correct Procedure Yes Yes Yes -Procedure Performed Yes Yes Yes -Type of Procedure Debridement Debridement Debridement -Clinical Debridement Subcutaneous Subcutaneous Subcutaneous -Tissue Removed Subcutaneous Subcutaneous Subcutaneous -Post Debridement (cm) - Length 1.3 1.0 0.8 -Post Debridement (cm) - Width 0.9 0.9 0.7 -Post Debridement (cm) - Depth 0.2 0.2 0.2 -Total Square (Post) (cm) 1.17 0.90 0.56 -Area of Debridement (cm) - Length 1.3 1.0 0.8 -Area of Debridement (cm) - Width 0.9 0.9 0.7 -Total Square (Area) (cm) 1.17 0.90 0.56 -Tunneling No No No -Undermining/Tunneling No No No -Circular Undermining No No No -Wound/Ulcer Outcome Not Healed Not Healed Not Healed -Ulcer Cleansing Rinsed/ Rinsed/ Rinsed/ Irrigated with Irrigated with Irrigated with Saline Saline Saline -Foul Odor after Cleansing No No No -Bioengineered Tissue Yes No Yes -Type of Bioengineered Tissue Epifix 18mm Epifix 18mm Epifix 18mm Disc Disc Disc -Expiration Date 11/08/27 11/08/27 01/07/28 -Product Lot Number [id number] -Percent Used 100 100 100 -Lot number of Saline Used [id number] -Bleeding Controlled with Pressure Pressure Pressure -Treatment Response Procedure Procedure Procedure Tolerated Well Tolerated Well Tolerated Well -Offloading No No -Debridement - Subq, 1st 20sq cm No No No -Apply Skin Sub - 1st 25 sq cm - Legs 1 1 1 -Epifix 18mm Disc 3 3 3 Pain Scale: 0-10 Numeric Is Patient Pain Free? Yes Yes Yes 03/31/23 11:01 Wound Center Nurse 2 KUSH medial -Time 11:01 -Correct Patient Yes -Correct Side, Site, Position Yes -Correct Procedure Yes -Procedure Performed Yes -Type of Procedure Debridement -Clinical Debridement Subcutaneous -Tissue Removed Subcutaneous -Post Debridement (cm) - Length 0.7 -Post Debridement (cm) - Width 0.8 -Post Debridement (cm) - Depth 0.1 -Total Square (Post) (cm) 0.56 -Area of Debridement (cm) - Length 0.7 -Area of Debridement (cm) - Width 0.8 -Total Square (Area) (cm) 0.56 -Tunneling No -Undermining/Tunneling No -Circular Undermining No -Wound/Ulcer Outcome Not Healed -Ulcer Cleansing Rinsed/ Irrigated with Saline -Foul Odor after Cleansing No -Bioengineered Tissue Yes -Type of Bioengineered Tissue Epifix 18mm Disc -Expiration Date 11/08/27 -Product Lot Number [id number] -Percent Used 100 -Lot number of Saline Used [id number] -Bleeding Controlled with Pressure -Treatment Response Procedure Tolerated Well -Offloading No -Debridement - Subq, 1st 20sq cm No -Apply Skin Sub - 1st 25 sq cm - Legs 1 -Epifix 18mm Disc 3 Pain Scale: 0-10 Numeric Is Patient Pain Free? Yes WC - Nurse 3 - General Ulcer D/C NN Start: 03/10/23 10:28 Freq: Status: Active Protocol: Activity Type Activity Date Activity User E-sign Co-sign Detail Recorded Client Recorded Date Recorded By Document 03/10/23 11:17 BMF [id number] 03/10/23 11:17 BMF Document 03/17/23 11:13 MW [id number] 03/17/23 11:14 MW Document 03/24/23 11:24 RB [id number] 03/24/23 11:26 RB Document 03/31/23 11:15 RB [id number] 03/31/23 11:16 RB 03/10/23 03/17/23 03/24/23 11:17 11:13 11:24 Wound Care Center Nurse 3 LLE medial -Ulcer Cleansing Not Cleansed -Foul Odor after Cleansing No -Negative Pressure Wound Therapy N/A -Primary Dressing Applied Aquacel Extra Aquacel Extra -Other Dressing EPIFIX -Primary Dressing Covered/Secured with Dry Gauze & Dry Gauze & Dry Gauze,Dry Roll Gauze, Roll Gauze, Gauze & Roll Secured with Secured with Gauze,Secured Tape Tape with Tape -Aquacel Extra 1 1 Left -Lotion applied to leg before No compression wrap -Tubular Bandage Double Layer Single Layer Single Layer -Size of Tubigrip Used Size D Size D Size D -Size D ($) 2 2 1 -Other Treatment Response Procedure Procedure Procedure Tolerated Well Tolerated Well Tolerated Well Pain Scale: 0-10 Numeric Is Patient Pain Free? Yes Yes Yes Teaching: Wound Center Dressing Your Wound -Person Taught Patient Patient -Teaching Method Discussion Discussion, Demonstration -Response to teaching Verbalize Verbalize understanding understanding WC - Visit Discharge Discharge Condition Stable Stable Stable Ambulatory Status Ambulatory Ambulatory Ambulatory Transportation Private Auto Private Auto Private Auto Accompanied by JES self Medication Reconcilliation completed & No No provided to patient/care provider Clinical Summary of Care Provided Yes Yes 03/31/23 11:15 Wound Care Center Nurse 3 LLE medial -Ulcer Cleansing -Foul Odor after Cleansing -Negative Pressure Wound Therapy -Primary Dressing Applied -Other Dressing -Primary Dressing Covered/Secured with Dry Gauze,Dry Gauze & Roll Gauze,Secured with Tape -Aquacel Extra Left -Lotion applied to leg before compression wrap -Tubular Bandage -Size of Tubigrip Used -Size D ($) -Other single layer tubigrip Treatment Response Procedure Tolerated Well Pain Scale: 0-10 Numeric Is Patient Pain Free? Yes Teaching: Wound Center Dressing Your Wound -Person Taught Patient -Teaching Method Discussion -Response to teaching Verbalize understanding WC - Visit Discharge Discharge Condition Stable Ambulatory Status Ambulatory Transportation Private Auto Accompanied by Medication Reconcilliation completed & No provided to patient/care provider Clinical Summary of Care Provided Yes Assessment/Plan Assessment/Plan (1) Nonhealing nonsurgical wound: CODE(S): T14.8XXA - Other injury of unspecified body region, initial encounter PLAN: EpiFix #4 applied to wound base covered with veil Steri-Strips Aquacel extra and a dry dressing Patient is to continue using a double layer Tubigrip for compression Do not let the dressing get wet Follow-up in 1 week (2) Nonhealing nonsurgical wound with fat layer exposed: CODE(S): T14.8XXA - Other injury of unspecified body region, initial encounter
[2023-04-07 09:35] VITALS: BP 120/62; PULSE 66; RESP 16; TEMP 36
--- NOTE | 2023-04-07 10:28 | PN.PCM_ITS ---
History of Present Illness Date of Service: 04/07/23 Chief Complaint: Follow-up on a open wound left lower leg in the calf History of Wound: 83-year-old female that had open heart surgery in January quadruple bypass. The day after surgery the spot of a white bubble showed up the next day. Denies any pain. Then it turned to like a black eschar. Was seen by her family doctor who had her soaking it with Joann soap. They also had tried putting an Neosporin ointment on it. Progress of Wound: Wound is healed patient be discharged from the wound center Subjective Subjective Patient is very grateful for healing Objective Data Objective Data No sign of infection new skin over where there was EpiFix doing well no sign of infection. Vital Signs: Vital Signs Temp Pulse Resp BP O2 Del Method 96.8 F L 66 16 120/62 Room Air 04/07/23 09:35 04/07/23 09:35 04/07/23 09:35 04/07/23 09:35 04/07/23 09:35 Oxygen Delivery Method Room Air Lab / Micro Data Attestation: I reviewed the patient's lab results. Physical Exam Narrative General: Alert, Oriented x3, Cooperative, No apparent distress HEENT: Atraumatic, PERRLA, EOMI, Normocephalic Oral: Moist Mucosa Neck: Supple, No JVD Lungs: Clear to auscultation, Normal air movement, No rhonchi, No wheeze, No rales Cardiovascular: Regular rate, Regular Rhythm, Normal S1, Normal S2, No murmurs Abdomen: Soft, nontender, Non-Distended, No Hepato-splenomegaly Extremities: No edema, Capillary Refill Less than 3 Seconds Skin: No rashes, No breakdown Musculoskeletal: No Tenderness to Palpation of Joints or Extremities Neurological: Cranial nerves II-XII grossly intact, Motor Exam 5/5 strength throughout, Sensory exam intact to light touch and pain Psych/Mental Status: Normal Affect, Appropriate Debridement Note Debridement Note No debridement was completed: No debridement was completed today Post-Debridement Measurements and Additional Note: Post-Debridement Measurements/Treatment TAI - Nurse 1 - General Ulcer Assessment Start: 03/10/23 10:28 Freq: Status: Active Protocol: JOCELYN Activity Type Activity Date Activity User E-sign Co-sign Detail Recorded Client Recorded Date Recorded By Document 03/10/23 10:30 BMF [id number] 03/10/23 10:35 BM Document 03/17/23 10:47 BMF [id number] 03/17/23 10:55 BMF Document 03/24/23 11:07 RB [id number] 03/24/23 11:09 RB Document 03/31/23 10:16 RB [id number] 03/31/23 10:19 RB Document 04/07/23 09:35 BMF [id number] 04/07/23 09:43 BMF 03/10/23 03/17/23 03/24/23 10:30 10:47 11:07 - Today's Visit Information Type of service Follow-up Visit Follow-up Visit Follow-up Visit (Physician/QUALIFICATIONS EXAMINER (Physician/QUALIFICATIONS EXAMINER (Physician/QUALIFICATIONS EXAMINER ) ) ) Arrival Mode Ambulatory Ambulatory Ambulatory Transfer Assistance None None None Patient Identification Verified (Name & Yes Yes Yes ) Patient Requires Transmission-Based No No No Precautions Vital Signs Temperature (97.8 F-99.1 F) 97.3 F L 96 F L Temperature Source Temporal Temporal Pulse Rate (60-100) 90 91 89 Pulse Location Monitor Monitor Monitor Respiratory Rate (12-18) 16 16 18 Respiratory rate source Observation Observation Observation Oxygen Delivery Method Room Air Room Air Blood Pressure (90/60-120/80) 162/81 H 143/75 H 129/60 H Blood Pressure Mean (mm Hg) 108 97 83 Source Monitor Monitor Monitor Position Sitting Sitting Semi-Fowlers Blood Pressure Location Left Arm Left Arm Left Arm History Since Last Visit- (Skip if this is Patient's initial visit) Have you changed medications since your No No No last visit? Any new allergies or adverse reactions No No No Had a fall/change in ADL's that may No No No increase risk of falls Signs or symptoms of abuse and/or No No No neglect since last visit Have you been in the hospital since your No No No last visit? Has dressing in place as prescribed Yes Yes Yes Has compression in place as prescribed Yes Yes Yes Has offloadiing in place as prescribed N/A N/A No Experienced any changes in pain level or No No No management Left Footwear Regular Shoe Regular Shoe Right Footwear Regular Shoe Regular Shoe Pain Scale: 0-10 Numeric Is Patient Pain Free? Yes Yes Yes 03/31/23 04/07/23 10:16 09:35 - Today's Visit Information Type of service Follow-up Visit Follow-up Visit (Physician/QUALIFICATIONS EXAMINER (Physician/QUALIFICATIONS EXAMINER ) ) Arrival Mode Ambulatory Ambulatory Transfer Assistance None None Patient Identification Verified (Name & Yes Yes ) Patient Requires Transmission-Based No No Precautions Vital Signs Temperature (97.8 F-99.1 F) 97.5 F L 96.8 F L Temperature Source Temporal Temporal Pulse Rate (60-100) 69 66 Pulse Location Monitor Monitor Respiratory Rate (12-18) 18 16 Respiratory rate source Observation Observation Oxygen Delivery Method Room Air Blood Pressure (90/60-120/80) 135/57 H 120/62 Blood Pressure Mean (mm Hg) 83 81 Source Monitor Monitor Position Semi-Fowlers Sitting Blood Pressure Location Left Arm Left Arm History Since Last Visit- (Skip if this is Patient's initial visit) Have you changed medications since your No No last visit? Any new allergies or adverse reactions No No Had a fall/change in ADL's that may No No increase risk of falls Signs or symptoms of abuse and/or No No neglect since last visit Have you been in the hospital since your No No last visit? Has dressing in place as prescribed Yes Yes Has compression in place as prescribed Yes Yes Has offloadiing in place as prescribed No N/A Experienced any changes in pain level or No No management Left Footwear Regular Shoe Right Footwear Regular Shoe Pain Scale: 0-10 Numeric Is Patient Pain Free? Yes Yes - Nurse 1 - General Ulcer Measurement Start: 03/10/23 10:28 Freq: Status: Active Protocol: Activity Type Activity Date Activity User E-sign Co-sign Detail Recorded Client Recorded Date Recorded By Document 03/10/23 10:30 [facility] [id number] 03/10/23 10:35 [facility] Document 03/17/23 10:47 BM [id number] 03/17/23 10:55 BM Document 03/24/23 11:07 RB [id number] 03/24/23 11:09 RB Document 03/31/23 10:16 RB [id number] 03/31/23 10:19 RB Document 04/07/23 09:35 [facility] [id number] 04/07/23 09:43 BMF 03/10/23 03/17/23 03/24/23 10:30 10:47 11:07 Wound Center Nurse 1 LLE medial -Combined with other wound No No No -Current Size (cm) - Length 1.3 1.1 1.2 -Current Size (cm) - Width 0.7 0.8 0.8 -Current Size (cm) - Depth 0.3 0.2 0.1 -Total Square Cm 0.91 0.88 0.96 -Date of Last Picture (Recall this 03/10/23 03/17/23 field) -Photo Taken Yes Yes Yes -Epithelialization None Present Small 1-33% -Tunneling No No No -Undermining/Tunneling No No No -Circular Undermining No No No -Exudate Amt Medium Small Medium -Exudate Type Serosanguineous Serosanguineous Serosanguineous -Wound Margin Distinct, Distinct, Distinct, Outline Outline Outline Attached Attached Attached -Granulation Amt Medium (34-66%) Large (67-100%) Medium (34-66%) -Granulation Quality Red Red [place] -Slough/Fibrin Yes Yes Yes -Necrosis Amt Medium (34-66%) Small (1-33%) Medium (34-66%) -Necrotic Tissue Type Adherent Slough Adherent Slough Adherent Slough -Structure Exposed N/A -Texture (Jody-wound Skin Appearance) Assessed, Assessed, Assessed Scarring Scarring -Moisture (Jody-wound Skin Appearance) Assessed Assessed Assessed -Color (Jody-wound Skin Appearance) Assessed, Assessed Assessed Erythema -Temperature (Jody-wound Skin No Abnormality No Abnormality No Abnormality Appearance) (Pt Warm) (Pt Warm) (Pt Warm) -Tenderness on Palpation (Jody-wound No No No Skin Appearance) -Ulcer Cleansing Rinsed/ Soap and Water Wound Cleanser Irrigated with Saline -Foul Odor after Cleansing No No No -Anesthetic Used 5% Lidocaine 5% Lidocaine 5% Lidocaine Gel Gel Gel Lower Limb Edema Present Yes Yes Yes Left Calf (cm) 32.5 32.7 33.5 Left Ankle (cm) 21.2 20 20.5 03/31/23 04/07/23 10:16 09:35 Wound Center Nurse 1 LLE medial -Combined with other wound No No -Current Size (cm) - Length 0.9 0.3 -Current Size (cm) - Width 0.6 0.2 -Current Size (cm) - Depth 0.1 0.1 -Total Square Cm 0.54 0.06 -Date of Last Picture (Recall this 04/07/23 field) -Photo Taken Yes Yes -Epithelialization Medium 34-66% -Tunneling No No -Undermining/Tunneling No No -Circular Undermining No No -Exudate Amt Medium Small -Exudate Type Serosanguineous Serosanguineous -Wound Margin Distinct, Flat & Intact Outline Attached -Granulation Amt Medium (34-66%) Small (1-33%) -Granulation Quality [place] Red -Slough/Fibrin Yes Yes -Necrosis Amt Medium (34-66%) Large (67-100%) -Necrotic Tissue Type Adherent Slough Adherent Slough -Structure Exposed N/A -Texture (Jody-wound Skin Appearance) Assessed, Assessed, Scarring Scarring -Moisture (Jody-wound Skin Appearance) Assessed Assessed -Color (Jody-wound Skin Appearance) Assessed Assessed -Temperature (Jody-wound Skin No Abnormality No Abnormality Appearance) (Pt Warm) (Pt Warm) -Tenderness on Palpation (Jody-wound No No Skin Appearance) -Ulcer Cleansing Wound Cleanser Soap and Water -Foul Odor after Cleansing No No -Anesthetic Used 5% Lidocaine 5% Lidocaine Gel Gel Lower Limb Edema Present Yes Yes Left Calf (cm) 33.2 32.6 Left Ankle (cm) 20 19.6 WC - Nurse 2 - General Ulcer CM Notes Start: 03/10/23 10:28 Freq: Status: Active Protocol: Activity Type Activity Date Activity User E-sign Co-sign Detail Recorded Client Recorded Date Recorded By Document 03/10/23 10:49 MW [id number] 03/10/23 10:58 MW Document 03/17/23 11:02 MW [id number] 03/17/23 11:07 MW Document 03/24/23 11:45 PL [id number] 03/24/23 11:46 PL Document 03/31/23 11:01 MW [id number] 03/31/23 11:04 MW Document 04/07/23 09:57 MW [id number] 04/07/23 09:59 MW 03/10/23 03/17/23 03/24/23 10:49 11:02 11:45 Wound Center Nurse 2 LLE medial -Time 10:51 11:02 11:11 -Correct Patient Yes Yes Yes -Correct Side, Site, Position Yes Yes Yes -Correct Procedure Yes Yes Yes -Procedure Performed Yes Yes Yes -Type of Procedure Debridement Debridement Debridement -Clinical Debridement Subcutaneous Subcutaneous Subcutaneous -Tissue Removed Subcutaneous Subcutaneous Subcutaneous -Post Debridement (cm) - Length 1.3 1.0 0.8 -Post Debridement (cm) - Width 0.9 0.9 0.7 -Post Debridement (cm) - Depth 0.2 0.2 0.2 -Total Square (Post) (cm) 1.17 0.90 0.56 -Area of Debridement (cm) - Length 1.3 1.0 0.8 -Area of Debridement (cm) - Width 0.9 0.9 0.7 -Total Square (Area) (cm) 1.17 0.90 0.56 -Tunneling No No No -Undermining/Tunneling No No No -Circular Undermining No No No -Wound/Ulcer Outcome Not Healed Not Healed Not Healed -Ulcer Cleansing Rinsed/ Rinsed/ Rinsed/ Irrigated with Irrigated with Irrigated with Saline Saline Saline -Foul Odor after Cleansing No No No -Bioengineered Tissue Yes No Yes -Type of Bioengineered Tissue Epifix 18mm Epifix 18mm Epifix 18mm Disc Disc Disc -Expiration Date 11/08/27 11/08/27 01/07/28 -Product Lot Number [id number] -Percent Used 100 100 100 -Lot number of Saline Used [id number] -Bleeding Controlled with Pressure Pressure Pressure -Treatment Response Procedure Procedure Procedure Tolerated Well Tolerated Well Tolerated Well -Offloading No No -Debridement - Subq, 1st 20sq cm No No No -Apply Skin Sub - 1st 25 sq cm - Legs 1 1 1 -Epifix 18mm Disc 3 3 3 Pain Scale: 0-10 Numeric Is Patient Pain Free? Yes Yes Yes 03/31/23 04/07/23 11:01 09:57 Wound Center Nurse 2 LLE medial -Time 11:01 09:57 -Correct Patient Yes Yes -Correct Side, Site, Position Yes Yes -Correct Procedure Yes Yes -Procedure Performed Yes No -Type of Procedure Debridement -Clinical Debridement Subcutaneous -Tissue Removed Subcutaneous -Post Debridement (cm) - Length 0.7 0 -Post Debridement (cm) - Width 0.8 0 -Post Debridement (cm) - Depth 0.1 0 -Total Square (Post) (cm) 0.56 0 -Area of Debridement (cm) - Length 0.7 -Area of Debridement (cm) - Width 0.8 -Total Square (Area) (cm) 0.56 -Tunneling No -Undermining/Tunneling No -Circular Undermining No -Wound/Ulcer Outcome Not Healed Healed- Epithelialized -Ulcer Cleansing Rinsed/ Irrigated with Saline -Foul Odor after Cleansing No -Bioengineered Tissue Yes -Type of Bioengineered Tissue Epifix 18mm Disc -Expiration Date 11/08/27 -Product Lot Number [id number] -Percent Used 100 -Lot number of Saline Used [id number] -Bleeding Controlled with Pressure -Treatment Response Procedure Tolerated Well -Offloading No -Debridement - Subq, 1st 20sq cm No -Apply Skin Sub - 1st 25 sq cm - Legs 1 -Epifix 18mm Disc 3 Pain Scale: 0-10 Numeric Is Patient Pain Free? Yes Yes - Nurse 3 - General Ulcer D/C NN Start: 03/10/23 10:28 Freq: Status: Active Protocol: Activity Type Activity Date Activity User E-sign Co-sign Detail Recorded Client Recorded Date Recorded By Document 03/10/23 11:17 [facility] [id number] 03/10/23 11:17 BMF Document 03/17/23 11:13 MW [id number] 03/17/23 11:14 MW Document 03/24/23 11:24 RB [id number] 03/24/23 11:26 RB Document 03/31/23 11:15 RB [id number] 03/31/23 11:16 RB Document 04/07/23 09:59 MW [id number] 04/07/23 10:00 MW 03/10/23 03/17/23 03/24/23 11:17 11:13 11:24 Wound Care Center Nurse 3 LLE medial -Ulcer Cleansing Not Cleansed -Foul Odor after Cleansing No -Negative Pressure Wound Therapy N/A -Primary Dressing Applied Aquacel Extra Aquacel Extra -Other Dressing EPIFIX -Primary Dressing Covered/Secured with Dry Gauze & Dry Gauze & Dry Gauze,Dry Roll Gauze, Roll Gauze, Gauze & Roll Secured with Secured with Gauze,Secured Tape Tape with Tape -Aquacel Extra 1 1 -Mepilex Border Left -Lotion applied to leg before No compression wrap -Tubular Bandage Double Layer Single Layer Single Layer -Size of Tubigrip Used Size D Size D Size D -Size D ($) 2 2 1 -Other Treatment Response Procedure Procedure Procedure Tolerated Well Tolerated Well Tolerated Well Pain Scale: 0-10 Numeric Is Patient Pain Free? Yes Yes Yes Teaching: Wound Center Discharge Instructions -Person Taught -Teaching Method -Response to teaching Dressing Your Wound -Person Taught Patient Patient -Teaching Method Discussion Discussion, Demonstration -Response to teaching Verbalize Verbalize understanding understanding WC - Visit Discharge Discharge Condition Stable Stable Stable Ambulatory Status Ambulatory Ambulatory Ambulatory Transportation Private [place] [employer] Private Auto Accompanied by JES self Medication Reconcilliation completed & No No provided to patient/care provider Clinical Summary of Care Provided Yes Yes 03/31/23 04/07/23 11:15 09:59 Wound Care Center Nurse 3 LLE medial -Ulcer Cleansing Rinsed/ Irrigated with Saline -Foul Odor after Cleansing No -Negative Pressure Wound Therapy N/A -Primary Dressing Applied Mepilex Border -Other Dressing -Primary Dressing Covered/Secured with Dry Gauze,Dry Gauze & Roll Gauze,Secured with Tape -Aquacel Extra -Mepilex Border 2 Left -Lotion applied to leg before compression wrap -Tubular Bandage -Size of Tubigrip Used -Size D ($) -Other single layer tubigrip Treatment Response Procedure Procedure Tolerated Well Tolerated Well Pain Scale: 0-10 Numeric Is Patient Pain Free? Yes Yes Teaching: Wound Center Discharge Instructions -Person Taught Patient -Teaching Method Discussion -Response to teaching Verbalize understanding Dressing Your Wound -Person Taught Patient -Teaching Method Discussion -Response to teaching Verbalize understanding WC - Visit Discharge Discharge Condition Stable Stable Ambulatory Status Ambulatory Ambulatory Transportation Private Auto Private Auto Accompanied by self Medication Reconcilliation completed & No No provided to patient/care provider Clinical Summary of Care Provided Yes Yes Assessment/Plan Assessment/Plan (1) Nonhealing nonsurgical wound: CODE(S): T14.8XXA - Other injury of unspecified body region, initial encounter PLAN: Discharge from the wound center follow-up as needed (2) Nonhealing nonsurgical wound with fat layer exposed: CODE(S): T14.8XXA - Other injury of unspecified body region, initial encounter
== END 2023-04-07 23:59 | disposition home or self-care (01) ==
LOC: WC 09:30
PROVIDERS: PCP Family Medicine; Referring Provider Family Medicine; Visit Provider Nurse Practitioner
DX: T14.8XXA Other injury of unspecified body region, initial encounter (principal)
CPT/HCPCS: 15271; 99212; Q4186; G0463

== ENCOUNTER 2023-05-07 08:00 | Outpatient (RCR) | payer MEDICARE, OTHER, SELFPAY ==
[2023-03-22 15:10] VITALS: BMI 23.0
--- NOTE | 2023-04-21 13:10 | PCM.CR.ITP ---
Diagnosis Exercise - 30-day Assessment - Visit Date of Eval: 04/21/23 Session #:: 11 - Physician Prescribed Exercise Modalities: Treadmill, Airdyne, NuStep Frequency: 3x/week for 12 weeks [36 sessions] Intensity: 60-80% of age predicted maximum heart rate reserve Current METSs:: 3 Target Heart Rate:: 101-114 Current RPE:: 12 Maximum Excercise HR:: 103 Resting Blood Pressure: 132/68 Maximum Exercise Blood Pressure: 132/68 EKG Type: SR to ST with rare PVC noted - Outcomes & Goals Goals:: Verbalizes understanding of THR, RPE & goal METS by session 6, Documents in home exercise log/reports 30 min aerobic 5 day/wk by DC, Demonstrates accurate pulse taking by DC, Other additional outcome/goals: see below - Intervention & Plan Exercise Program Goals: Instruct on personal THR & RPE, Instruct on MET level & personal MET goal, Show patient to take own pulse /validate performance until accurate, Instruct on home exercise, Other additional plan/int - 30-day Reassessments 30 day Reassessments:: Progressing - THR explained - Physical Activity Home Exercise Physical Activity - Home Exercise: Safe Exercise, Warm-up, Self-monitoring, Cool-Down, Home Exercise > 30 min Daily, Sitting Time <3 hours/daily - Outcomes & Goals Outcomes/Goals: Demonstrates correct Warm-up/exercise Cool-Down (S3) if = 2.5 METs, Verbalizes symptoms of exercise intolerance by Session 3 (S3), Demonstrate safe equipment use (S3) & follows exercise prescrition (6), Other: See below - Intervention & Plan Plan/Intervention: Instruct warm-up & cool-down if exercising at > 2 METs, Instruct on symptoms of exercise intolerance & actions to take, Instruct & monitor on saf, Assess intial functional capacity & safety risk, Other See below - 30-day Reassessments 30 day Reassessments:: Progressing - attended class on safe exercise Nutrition - Initial Assessment Nutrition - 30-Day Assessment - Program Goals Nutrition Program Goals: LDL <100 optimal. 100 - 129 Near optimal. 130 - 159 Borderline High. 160 - 189 High. Total Cholesterol <200 desirable. 200 - 239 Borderline High. >/= 240 High. HDL < 40 Low >/=60 High. Triglycerides <150 desirable. <199 optimal. VlDL 5 - 40. HgbA1C <7%. BMI <25 Patient has diagnosis of Hyperlipidemia (ICD E78)?: Yes - Visit Date of Assessment:: 04/21/23 Session #:: 11 - Cholesterol/Lipids (Other Core Measures) Determine presence & major risk factors that modify LDL goal: Cigarette smoking, Hypertension or hypertensive medication, Low HDL cholesterol <40 mg/dL*, Family history of premature CHD in Male < 55 years: female <65 yearsFa, Age men > 45 years; women >/= 55 years Outcomes/Goals: Pt IDs own risk factors & lifestyle modifications by Session 10, Verbalizes symptoms of angina & response by session 3., Pt independently manages, Other Additional Outcomes/Goals: Intervention/Plan: Advocate for lipid panel cholesterol medication if applicable, Instruct on personal lipid levels & lipid goals/NCEP guidelines, Instruct on cholesterol, Other additional plan/int Referral to dietitian:: No - pt is unsure if she wants to see dietitian 30-day Reassessments:: Progressing - pt is unsure if she wants to see dietitian - Weight Mgt (Other Care) Height: 5 ft 3.5 in Weight:: 60.101 kg BMI: 23.1 Diagnosis Overweight/Obesity BMI> 30% ICD-10 E66: No Diagnosis High BMI/Morbid Obesity BMI> 35% ICD-10 Z68: No Outcomes/Goals: Pt sets, maintains & shows weight loss goal & trend during rehab, Other additional outcomes/goals Intervention/Plan: Instruct on ideal BMI & set weight loss goal w/patient, Assist pt to ID & incorporate diet changes for weight loss by S9, Refer to Structured Weight Loss program as appropriate, Encourage goal of using 250-300dcal per session for weight loss, Other additional plan/interventions 30 day Reassessments:: Progressing - pt is unsure if she wants to see dietitian - Healthy Eating Habits Will attend diet classes:: Yes Outcomes/Goals:: Consume diet rich in vegs,fruits,whole grain/high fiber,fish,lean meat, Limit sat/trans fats,cholesterol & added salts & sugars, Other additional outcome/goals: Intervention/Plan:: Assess current eating habits, Other Additional plan/interventions 30-day Reassessments:: Progressing - pt is unsure if she wants to see dietitian - Education Gave educational materials for:: Signs & symptoms of hypoglycemia, Signs & symptoms of hyperglycemia, Relate diabetes to coronary artery disease, Healthy eating Nutrition - 60-Day Assessment Nutrition - 90-Day Assessment Nutrition - Final Assessment Core - Initial Assessment Core - 30-Day Assessment - Visit Date of Eval: 04/21/23 Session #:: 11 - Medication Compliance Preventative Medication(s):: Aspirin, Statin/lipid H/O mental health issues: depression, anxiety, or addiction?: No Doesn?t believe in the benefits of treatment?: No Believes medications are unnecessary or harmful?: No Has a concern about medication side effects?: No Expresses concern over the cost of medications?: No Outcomes/Goals: Verbalizes medications,desired effect & common side effects @ DC, Pt self-reports following medication regimen, Keeps card in wallet w/medications listed by DC, Other additional outcome/goals: Interventions/plans: Instruct on medication effects & side effects, Review medication list w/patient every two weeks, Instruct importance of taking meds as ordered & assist problem solving, Other additional 30-day Reassessments:: Progressing - Tobacco Use Tobacco Use: Non-smoker - Hypertension Hypertension Diagnosis:: Hypertension ICD-10 I10 Resting Blood Pressure:: 132/68 - med changes made 03/31 [place] [employer] Hypertension Guidelines: [place] [employer] Hypertension Guidelines. Normal BP Less than 120/80. Elevated BP 120/80. Hypertension Stage 1: BP 130-139/80-89. Hypertesnion Stage 2: BP 140 or higher/90 or higher. Hypertension Crisis: BP higher than 180/120 Peak Exercise Blood Pressure:: 132/68 Outcomes/Goals: Able to verbalize/achieve optimal blood pressure <130/80, Incorporates diet changes & exercise for blood pressure control by DC, Other additional outcomes/goals Interventions/plan: Instruct on optimal blood pressure, hypertension & medications, Instruct on effects of sodium, alcohol, stress, exercise &hypertension, Other additional plan/interventions 30 day Reassessments:: Progressing - BP's have made some improvement - Tobacco Cessation Referral Smoking Cessation Referral:: No Individual Education/Counseling:: No Education Schedule Given:: Yes Core - 60-Day Assessment Core - 90 Day Assessment Core - Final Assessment Psychosocial - Initial Assess Psychosocial - 30-Day Assess - VIsit Date of Eval: 04/21/23 Session #:: 11 History of previous Mental disease:: No Psychosocial - 60-Day Assess Psychosocial - 90-Day Assess Psychosocial - Final Assessmen Patient Health Questionnaire 30-Day Re-eval Assessment 1. Little interest or pleasure in doing things: Not at all 2. Feeling down, depressed, or hopeless: Not at all 3. Trouble falling or staying asleep, or sleeping too much: Not at all 4. Feeling tired or having little energy: Several days 5. Poor appetite or overeating: Several days 6. Feeling bad about yourself -- or that you are a failure or have let yourself or your family down: Not at all 7. Trouble concentrating on things, such as reading the newspaper or watching television: Not at all 8. Moving or speaking so slowly that other people could have noticed. Or the opposite - being so fidgety or restless that you have been moving around a lot more than usual: Not at all 9. Thoughts that you would be better off , or of hurting yourself in some way: Not at all How difficult have these problems made it for you to do your work, take care of things at home, or get along with other people?: Not difficult at all Total Score: 2 Self-Efficacy 30-Day Re-eval Assessment We would like to know how confident you are in doing certain activities. Please select your confidence level for:: Select your confidence level for the following using the scale 1-10 where 1 is not at all confident and 10 is totally confident. Your score is the average of all 6 responses. Fatigue: How confident are you that you can keep the fatigue caused by your disease from interfering with the things you want to do? Select Number: 9 Physical Discomfort or Pain: How confident are you that you can keep the physical discomfort or pain of your disease from interfering with the things you want to do? Select Number: 8 Emotional Distress: How confident are you that you can keep the emotional distress caused by your disease from interfering with the things you want to do? Select Number: 8 Other Symptoms or Health Problems: How confident are you that you can keep other symptoms or health problems from interfering with the things you want to do? Select Number: 9 Different Tasks and Activities: How confident are you that you can do the different tasks and activities needed to manage your health condition so as to reduce your need to see a doctor? Select Number: 9 Medication: How confident are you that you can do things other than just taking medication to reduce how much your illness affects your everyday life? Select Number: 10 Total Score:: 8 Nutrition Survey
[2023-04-21 13:22] VITALS: BP 132/68; BMI 23.1
== END 2023-05-07 23:59 ==
LOC: CR 08:00
PROVIDERS: PCP Family Medicine; Referring Provider Internal Medicine Cardiovascular Disease; Visit Provider Internal Medicine Cardiovascular Disease
DX: I25.10 Atherosclerotic heart disease of native coronary artery without angina pectoris (principal)
CPT/HCPCS: 93798

== ENCOUNTER 2023-06-07 08:00 | Outpatient (RCR) | payer MEDICARE, OTHER, SELFPAY ==
[2023-04-21 13:22] VITALS: BMI 23.1
[2023-05-08 01:34] VITALS: BP 132/68
--- NOTE | 2023-05-21 11:24 | CR.ITP_ITS ---
Nutrition - Initial Assessment Weight Mgt (Other Care) Height: 5 ft 3.5 in Weight:: 134 lb BMI: 23.3 Psychosocial - Initial Assess Target Goals Target Goals Patient Health Questionnaire PHQ-9 Screening 60-Day Re-eval Assessment: 1. Little interest or pleasure in doing things: Not at all 2. Feeling down, depressed, or hopeless: Not at all 3. Trouble falling or staying asleep, or sleeping too much: Not at all 4. Feeling tired or having little energy: Several days 5. Poor appetite or overeating: Several days 6. Feeling bad about yourself -- or that you are a failure or have let yourself or your family down: Not at all 7. Trouble concentrating on things, such as reading the newspaper or watching television: Not at all 8. Moving or speaking so slowly that other people could have noticed. Or the opposite - being so fidgety or restless that you have been moving around a lot more than usual: Not at all 9. Thoughts that you would be better off , or of hurting yourself in some way: Not at all How difficult have these problems made it for you to do your work, take care of things at home, or get along with other people?: Not difficult at all Total Score: 2 Self-Efficacy 6-Item Scale 60-Day Re-eval Assessment: We would like to know how confident you are in doing certain activities. Please select your confidence level for: Fatigue Select Number: 9 Physical Discomfort or Pain Select Number: 8 Emotional Distress Select Number: 8 Other Symptoms or Health Problems Select Number: 9 Different Tasks and Activities Select Number: 9 Medication Select Number: 10 Total Score:: 8 Nutrition Survey Nutrition Survey Instructions Scoring Instructions Exercise - 60-day Assessment Visit Date of Eval: 05/21/23 Session #:: 24 Physician Prescribed Exercise Modalities: Treadmill, Airdyne and NuStep Frequency: 3x/week for 12 weeks [36 sessions] Intensity: 60-80% of age predicted maximum heart rate reserve Current METSs:: 4 Target Heart Rate:: 101-114 Current RPE:: 12-13 Maximum Excercise HR:: 109 Resting Blood Pressure: 144/82 Maximum Exercise Blood Pressure: 150/64 EKG Type: SR to St with rare PVC Outcomes & Goals Goals:: Verbalizes understanding of THR, RPE & goal METS by session 6, Documents in home exercise log/reports 30 min aerobic 5 day/wk by DC, Demonstrates accurate pulse taking by DC and Other additional outcome/goals: see below Intervention & Plan Exercise Program Goals: Instruct on personal THR & RPE, Instruct on MET level & personal MET goal, Show patient to take own pulse /validate performance until accurate, Instruct on home exercise and Other additional plan/int 30-day Reassessments 30 day Reassessments:: Progressing Reassessment Notes & Comments:: pulse taking demonstrated Physical Activity Home Exercise Physical Activity - Home Exercise: Safe Exercise, Warm-up, Self-monitoring, Cool-Down, Home Exercise > 30 min Daily and Sitting Time <3 hours/daily Outcomes & Goals Outcomes/Goals: Demonstrates correct Warm-up/exercise Cool-Down (S3) if = 2.5 METs, Verbalizes symptoms of exercise intolerance by Session 3 (S3), Demonstrate safe equipment use (S3) & follows exercise prescrition (6) and Other: See below Intervention & Plan Plan/Intervention: Instruct warm-up & cool-down if exercising at > 2 METs, Instruct on symptoms of exercise intolerance & actions to take, Instruct & monitor on saf, Assess intial functional capacity & safety risk and Other See below 30-day Reassessments 30 day Reassessments:: Progressing Reassessment Notes & Comments:: pt encouraged to walk at home on off days Nutrition - 30-Day Assessment Weight Mgt (Other Care) Height: 5 ft 3.5 in Weight:: 134 lb BMI: 23.3 Nutrition - 60-Day Assessment Program Goals Nutrition Program Goals Patient has diagnosis of Hyperlipidemia (ICD E78)?: Yes Visit Date of Eval: 05/21/23 Session #:: 24 Cholesterol/Lipids (Other Core Measures) Determine presence & major risk factors that modify LDL goal: Cigarette smoking, Hypertension or hypertensive medication, Low HDL cholesterol <40 mg/dL*, Family history of premature CHD in Male < 55 years: female <65 yearsFa and Age men > 45 years; women >/= 55 years Outcomes/Goals: Pt IDs own risk factors & lifestyle modifications by Session 10, Verbalizes symptoms of angina & response by session 3., Pt independently manages and Other Additional Outcomes/Goals: Intervention/Plan: Advocate for lipid panel cholesterol medication if applicable, Instruct on personal lipid levels & lipid goals/NCEP guidelines, Instruct on cholesterol and Other additional plan/int Referral to dietitian:: No 30-day Reassessments:: Progressing Reassessment Notes & Comments:: pt attending nutrition class Weight Mgt (Other Care) Height: 5 ft 3.5 in Weight:: 134 lb BMI: 23.3 Diagnosis Overweight/Obesity BMI> 30% ICD-10 E66: No Diagnosis High BMI/Morbid Obesity BMI> 35% ICD-10 Z68: No Outcomes/Goals: Pt sets, maintains & shows weight loss goal & trend during rehab and Other additional outcomes/goals Intervention/Plan: Instruct on ideal BMI & set weight loss goal w/patient, Assist pt to ID & incorporate diet changes for weight loss by S9, Refer to Structured Weight Loss program as appropriate, Encourage goal of using 250- 300dcal per session for weight loss and Other additional plan/interventions 30 day Reassessments:: Met Healthy Eating Habits Will attend diet classes:: Yes Outcomes/Goals:: Consume diet rich in vegs,fruits,whole grain/high fiber,fish,lean meat, Limit sat/trans fats,cholesterol & added salts & sugars and Other additional outcome/goals: Intervention/Plan:: Assess current eating habits and Other Additional plan/interventions 30-day Reassessments:: Met Education Gave educational materials for:: Signs & symptoms of hypoglycemia, Signs & symptoms of hyperglycemia, Relate diabetes to coronary artery disease and Healthy eating Core - 60-Day Assessment Visit Date of Eval: 05/21/23 Session #:: 24 Medication Compliance Preventative Medication(s):: Aspirin and Statin/lipid H/O mental health issues: depression, anxiety, or addiction?: No Doesn?t believe in the benefits of treatment?: No Believes medications are unnecessary or harmful?: No Has a concern about medication side effects?: No Expresses concern over the cost of medications?: No Outcomes/Goals: Verbalizes medications,desired effect & common side effects @ DC, Pt self-reports following medication regimen, Keeps card in wallet w/medications listed by DC and Other additional outcome/goals: Interventions/plans: Instruct on medication effects & side effects, Review medication list w/patient every two weeks, Instruct importance of taking meds as ordered & assist problem solving and Other additional 30-day Reassessments:: Met Tobacco Use Tobacco Use: Non-smoker Hypertension Resting Blood Pressure:: 144/82 [place] [employer] Hypertension Guidelines Peak Exercise Blood Pressure:: 150/64 Outcomes/Goals: Able to verbalize/achieve optimal blood pressure <130/80, Incorporates diet changes & exercise for blood pressure control by DC and Other additional outcomes/goals Interventions/plan: Instruct on optimal blood pressure, hypertension & medications, Instruct on effects of sodium, alcohol, stress, exercise &hypertension and Other additional plan/interventions 30 day Reassessments:: Progressing Reassessment Notes & Comments:: meds have been adjusted for BP Tobacco Cessation Referral Smoking Cessation Referral:: No Individual Education/Counseling:: No Education Schedule Given:: Yes Psychosocial - 30-Day Assess Target Goals Target Goals Psychosocial - 60-Day Assess VIsit Date of Eval: 05/21/23 Session #:: 24 History of previous Mental disease:: No Target Goals Target Goals Psychosocial - 90-Day Assess Target Goals Target Goals Psychosocial - Final Assessmen Target Goals Target Goals Nutrition - 90-Day Assessment Weight Mgt (Other Care) Height: 5 ft 3.5 in Weight:: 134 lb BMI: 23.3 Nutrition - Final Assessment Weight Mgt (Other Care) Height: 5 ft 3.5 in Weight:: 134 lb BMI: 23.3
[2023-05-21 11:33] VITALS: BP 144/82; BMI 23.3
== END 2023-06-07 23:59 ==
LOC: CR 08:00
PROVIDERS: PCP Family Medicine; Referring Provider Internal Medicine Cardiovascular Disease; Visit Provider Internal Medicine Cardiovascular Disease
DX: I25.10 Atherosclerotic heart disease of native coronary artery without angina pectoris (principal); Z95.1 Presence of aortocoronary bypass graft
CPT/HCPCS: 93798

== ENCOUNTER 2023-06-18 08:00 | Outpatient (RCR) | payer MEDICARE, OTHER, SELFPAY ==
[2023-05-21 11:33] VITALS: BMI 23.3
[2023-06-08 00:20] VITALS: BP 132/68; BP 144/82
== END 2023-07-08 23:59 ==
LOC: CR 08:00
PROVIDERS: PCP Family Medicine; Referring Provider Internal Medicine Cardiovascular Disease; Visit Provider Internal Medicine Cardiovascular Disease
DX: I25.10 Atherosclerotic heart disease of native coronary artery without angina pectoris (principal); Z95.1 Presence of aortocoronary bypass graft
CPT/HCPCS: 93798

== ENCOUNTER 2024-02-24 17:57 | Emergency (ER) | payer MEDICARE, OTHER, SELFPAY ==
[2023-05-21 11:33] VITALS: BMI 23.3
[2024-02-24 17:58] VITALS: BP 148/123; PULSE 58; RESP 16; TEMP 36.1; O2SAT 97; BMI 25.2
[2024-02-24 19:01] VITALS: BP 181/89; PULSE 59; RESP 15; O2SAT 97
--- NOTE | 2024-02-24 19:24 | EKG12_ITS ---
Test Reason : CP Blood Pressure : / mmHG Vent. Rate : 058 BPM Atrial Rate : 058 BPM P-R Int : 174 ms QRS Dur : 078 ms QT Int : 414 ms P-R-T Axes : 028 018 067 degrees QTc Int : 406 ms Sinus bradycardia Possible Left atrial enlargement Nonspecific ST and T wave abnormality Abnormal ECG Confirmed by TAYLOR PARISH, RADHA ([id number]), newspaper copy editor FLORENTINO RIVERA ([id number]) on 02/25/2024 8:20:50 AM Referred By: GERALDINE Confirmed By:RADHA VAZQUEZ MD
--- NOTE | 2024-02-24 19:28 | EDS_ITS ---
HPI <Alexandra Kim RN - Last Filed: 02/24/24 22:28> History of Present Illness Chief Complaint: Chest Pain Informant: patient Onset/Context/Timing Onset: Days (3-4) Activity at onset: sudden Timing: Intermittent Quality: Positive for Pressure Location: Substernal Current Severity: 0/10 Maximum Severity: 6/10 Worsened By: Nothing Relieved By: Nothing Associated Symptoms: Positive for Dyspnea; Negative for Nausea, Vomiting, Diaph oresis, Cough, Fever, Lightheadedness, Acid Reflux or Palpitations Narrative Narrative: Patient is a 84-year-old female with past medical history significant for CAD with four-vessel CABG 1 year ago at [facility], hypertension, hyperlipidemia, hypothyroidism, LVH, and intermittent palpitations who presents to the ED with her family member for intermittent midsternal chest pressure beginning approximately 3 to 4 days ago. Patient reports this pain has been present for most of the day today. However resolved approximately 2 hours ago. She reports 2-3 nights this past week she has been unable to sleep because she has been uncomfortable and cannot quite describe the feeling. She had a similar episode greater than 10 years ago when she was in [place] and admitted to the hospital. She reports she was diagnosed with a GI problem at that time. She does report taking omeprazole for quite some time. However she did quit taking it 2 days ago. She reports taken and 81 mg aspirin per day that she did take today. She also reports shortness of breath associated with the chest pressure. She denies radiation of the pain. She denies nausea, vomiting, and diarrhea. She denies recent travel. Patient reports never having an [place]. She reports she had a abnormal stress test that then led to a heart cath revealing blockages that required a four-vessel CABG. Prior Similar Symptoms: No Recent Illness/Hospitalization: No CVD Risk Factors: Positive for Hypertension and Hypercholesterolemia; Negative for Diabetes, Family History 1' </=55 or Smoking PE Risk Factors: Negative for Recent Travel/Surgery FORMERLY [facility], [facility]–1983 <Alexandra Kim RN - Last Filed: 02/24/24 22:28> FOR[facility]LY [facility], [facility] Medical History Abnormal stress test CAD (coronary artery disease) Essential (primary) hypertension Hyperlipidemia Hypothyroidism Intermittent palpitations Left ventricular hypertrophy Neuropathy Home Medications pregabalin 100 mg capsule (Lyrica) 100 mg PO DAILY neuropathy 04/28/18 [History Last Taken 03/03/23] levothyroxine 75 mcg tablet 75 mcg PO DAILY 04/23/20 [History Last Taken 03/04/23] acetaminophen 500 mg tablet 1,000 mg PO Q6H PRN Pain 03/04/23 [History Last Taken 03/04/23] aspirin 81 mg chewable tablet 81 mg PO DAILY@0800 03/15/23 [History Last Taken Unknown] metoprolol succinate 50 mg tablet,extended release 24 hr 50 mg PO DAILY #90 tabs 04/20/23 [Rx Last Taken Unknown] losartan 100 mg tablet 100 mg PO DAILY #90 tabs 06/03/23 [Rx Last Taken Unknown] amoxicillin 500 mg capsule 2,000 mg (4 x 500 mg) PO .COMPLEX #4 caps 09/10/23 [Rx Last Taken Unknown] Allergy/AdvReac Type Severity Reaction Status Date / Time gabapentin Allergy Itching Verified 02/24/24 18:02 risedronate sodium AdvReac Severe chest pain Verified 02/24/24 18:02 [From Actonel] rosuvastatin AdvReac Severe SOB, Verified 02/24/24 18:02 myalgias, chest pain, leg cramps atorvastatin [From Lipitor] AdvReac Intermediate Myalgias Verified 02/24/24 18:02 Family History Father , age74 CAD (coronary artery disease) Mother , Age 67 Cancer Ovarian Cancer Brother Colon cancer Sister Endometrial cancer Surgical History Aortic valve replaced History of aortic valve replacement with bioprosthetic valve History of cholecystectomy History of D&C Hx of CABG Social History Smoking Status: Former smoker alcohol intake: never caffeine: Yes Type: coffee Number of servings: 1 ROS <Alexandra Kim RN - Last Filed: 02/24/24 22:28> ROS ED Constitutional Constitutional ED: Denies chills, fever(s) or sweats Eyes Eyes: Denies blurry vision or change in vision ENT ENT ED: Denies rhinorrhea or sore throat Cardiovascular Cardiovascular: Reports chest pain; Denies orthopnea, palpitations or racing heartbeat Respiratory/Chest Respiratory/Chest: Reports dyspnea; Denies cough, dyspnea on exertion or orthopnea Gastrointestinal Gastrointestinal: Denies abdominal pain, diarrhea, melena, nausea or vomiting Genitourinary Genitourinary ED: Denies dysuria, hematuria or urinary frequency Musculoskeletal Musculoskeletal: Denies arthralgias or myalgias Integumentary Denies rash Neurologic Neurologic: Denies headache(s), paresthesias or weakness EXAM <Alexandra Kim RN - Last Filed: 02/24/24 22:28> Physical Exam Narrative Exam Narrative: Patient is awake, alert, talkative, good historian. She is accompanied by her daughter. Const Vital Signs: 02/24/24 17:58 02/24/24 19:01 02/24/24 19:01 Temperature 96.9 F L Temperature Source Temporal Pulse Rate 58 L 59 L Respiratory Rate 16 15 Respiratory Effort Normal Blood Pressure 148/123 H 181/89 H Blood Pressure Mean 131 119 Pulse Ox 97 97 Oxygen Delivery Method Room Air Room Air 02/24/24 19:51 02/24/24 20:00 02/24/24 21:00 Temperature Temperature Source Pulse Rate 56 L 54 L Respiratory Rate 17 22 H Respiratory Effort Blood Pressure 117/86 H 163/70 H Blood Pressure Mean 92 96 Pulse Ox 96 96 Oxygen Delivery Method Room Air 02/24/24 22:00 02/24/24 22:40 Temperature 98 F Temperature Source Pulse Rate 53 L 62 Respiratory Rate 20 H 16 Respiratory Effort Blood Pressure 153/89 H 148/82 H Blood Pressure Mean 109 104 Pulse Ox 93 98 Oxygen Delivery Method Positive well nourished and well developed General Appearance ED: well developed and NAD HEENT Reports moist mucous membranes Eyes PERRL Neck no JVD Chest Wall inspection of chest normal and palpation of chest normal Resp normal respiratory effort and clear to auscultation bilaterally Auscultation: Negative for rales, rhonchi or wheezes Cardio regular rate, regular rhythm, S1 normal heart sound and S2 normal heart sound Peripheral Pulses: pulses 2+ throughout GI normal to inspection, nondistended, normoactive bowel sounds, soft to palpation and non-tender Extremity normal to inspection Neuro oriented x3 Sensorium / Orientation: awake Motor Exam: strength 5/5 throughout Psych mental status grossly normal Skin no rashes or lesions noted <Dr. Tenisha Serrano MD - Last Filed: 02/24/24 23:09> Physical Exam Const Vital Signs: 02/24/24 17:58 02/24/24 19:01 02/24/24 19:01 Temperature 96.9 F L Temperature Source Temporal Pulse Rate 58 L 59 L Respiratory Rate 16 15 Respiratory Effort Normal Blood Pressure 148/123 H 181/89 H Blood Pressure Mean 131 119 Pulse Ox 97 97 Oxygen Delivery Method Room Air Room Air 02/24/24 19:51 02/24/24 20:00 02/24/24 21:00 Temperature Temperature Source Pulse Rate 56 L 54 L Respiratory Rate 17 22 H Respiratory Effort Blood Pressure 117/86 H 163/70 H Blood Pressure Mean 92 96 Pulse Ox 96 96 Oxygen Delivery Method Room Air 02/24/24 22:00 02/24/24 22:40 Temperature 98 F Temperature Source Pulse Rate 53 L 62 Respiratory Rate 20 H 16 Respiratory Effort Blood Pressure 153/89 H 148/82 H Blood Pressure Mean 109 104 Pulse Ox 93 98 Oxygen Delivery Method MDM <Alexandra Kim RN - Last Filed: 02/24/24 22:28> MDM MDM Narrative Medical decision making narrative: Patient placed on machine designer. IV line initiated. Labwork obtained to evaluate for leukocytosis, anemia, and electrolyte derangement. Chest x-ray obtained to evaluate for acute lung pathology, cardiac size, or mediastinal abnormality. EKG obtained to evaluate for cardiac arrhythmia/ischemia. Aspirin 324 mg given due to concern for ACS. Protonix 40 mg IV given due to concern for GI cause of pain. History & Record Review Discussion w/independent historian: Patient and Family Lab Data Labs: Laboratory Results - last 24 hr 02/24/24 02/24/24 19:00 21:35 WBC 5.7 RBC 4.83 Hgb 14.9 Hct 46.3 MCV 95.9 MCH 30.8 MCHC 32.2 RDW Std Deviation 47.0 H RDW Coeff of Maxine 13.3 Plt Count 157 MPV 10.7 Immature Gran % (Auto) 0.200 Neut % (Auto) 48.8 Lymph % (Auto) 38.0 Boyle % (Auto) 10.7 H Eos % (Auto) 1.6 Baso % (Auto) 0.7 Absolute Neuts (auto) 2.8 Absolute Lymphs (auto) 2.16 Nucleated RBC % 0 Sodium 141 Potassium 3.9 Chloride 105 Carbon Dioxide 30.0 Anion Gap 6 BUN 22 H Creatinine 1.24 H Estim Creat Clear Calc 29.65 Est GFR (MDRD) Af Amer 53 L Est GFR (MDRD) Non-Af 44 L BUN/Creatinine Ratio 17.7 Glucose 104 Calcium 10.6 H Total Bilirubin 0.50 Direct Bilirubin 0.10 AST 26 ALT 24 Alkaline Phosphatase 88 Troponin I High Sens 7 9 Total Protein 7.7 Albumin 3.8 Globulin 3.9 Lipase 71 Radiography Diagnostic Testing: Clinical Impression(s) from Imaging Studies Chest X-Ray 02/24/24 19:48 IMPRESSION: No active disease. Electronically Signed: Arnel Lomas MD at 20:32 EDT , EKG Initial EKG: Attestation: I personally reviewed and interpreted this EKG as follows: Interpretation: Sinus Bradycardia Comments: Sinus bradycardia with heart rate 58. No dysrhythmia or ischemia noted. Differential Diagnosis Chest pain/SOB: ACS Management Discussion w/another healthcare provider: Other (Dr. Serrano, ED provider) Treatment and Re-Evaluation :: Lab work and imaging reviewed. CBC unremarkable with a white blood cell count of 5.7, hemoglobin 14.9, and platelets 157. Chemistry shows normal sodium of 141, potassium 3.9, BUN 22, creatinine 1.24, glucose is 104. Liver profile is negative with a total bili of 0.5, AST 26, ALT 24. Lipase is negative at 71. Initial high-sensitivity troponin was 7. Repeat was 9. Chest x-ray shows no cardiomegaly, normal mediastinum, and no infiltrates. Upon reevaluation, patient awake and alert. Denies pain. Reviewed lab work and imaging with patient. Patient requesting to go home. Patient instructed to follow-up with Dr. Last in 3 to 5 days for chest pain. Patient instructed to follow-up with primary care provider in 1 to 2 weeks for concerns of GERD. She was also instructed to return to ED for worsening or concerning symptoms. Patient agreeable with plan and to be discharged home. <Dr. Tenisha Serrano MD - Last Filed: 02/24/24 23:09> [facility] Lab Data Labs: Laboratory Results - last 24 hr 02/24/24 02/24/24 19:00 21:35 WBC 5.7 RBC 4.83 Hgb 14.9 Hct 46.3 MCV 95.9 MCH 30.8 MCHC 32.2 RDW Std Deviation 47.0 H RDW Coeff of Maxine 13.3 Plt Count 157 MPV 10.7 Immature Gran % (Auto) 0.200 Neut % (Auto) 48.8 Lymph % (Auto) 38.0 Boyle % (Auto) 10.7 H Eos % (Auto) 1.6 Baso % (Auto) 0.7 Absolute Neuts (auto) 2.8 Absolute Lymphs (auto) 2.16 Nucleated RBC % 0 Sodium 141 Potassium 3.9 Chloride 105 Carbon Dioxide 30.0 Anion Gap 6 BUN 22 H Creatinine 1.24 H Estim Creat Clear Calc 29.65 Est GFR (MDRD) Af Amer 53 L Est GFR (MDRD) Non-Af 44 L BUN/Creatinine Ratio 17.7 Glucose 104 Calcium 10.6 H Total Bilirubin 0.50 Direct Bilirubin 0.10 AST 26 ALT 24 Alkaline Phosphatase 88 Troponin I High Sens 7 9 Total Protein 7.7 Albumin 3.8 Globulin 3.9 Lipase 71 Radiography Diagnostic Testing: Clinical Impression(s) from Imaging Studies Chest X-Ray 02/24/24 19:48 IMPRESSION: No active disease. Electronically Signed: Arnel Lomas MD at 20:32 EDT , EKG Initial EKG: Interpretation: Sinus Bradycardia Treatment and Re-Evaluation :: Lab work and imaging reviewed. CBC unremarkable with a white blood cell count of 5.7, hemoglobin 14.9, and platelets 157. Chemistry shows normal sodium of 141, potassium 3.9, BUN 22, creatinine 1.24, glucose is 104. Liver profile is negative with a total bili of 0.5, AST 26, ALT 24. Lipase is negative at 71. Initial high-sensitivity troponin was 7. Repeat was 9. Chest x-ray shows no cardiomegaly, normal mediastinum, and no infiltrates. Upon reevaluation, patient awake and alert. Denies pain. Reviewed lab work and imaging with patient. Patient requesting to go home. Patient instructed to follow-up with Dr. aLst in 3 to 5 days for chest pain. Patient instructed to follow-up with primary care provider in 1 to 2 weeks for concerns of GERD. She was also instructed to return to ED for worsening or concerning symptoms. Patient agreeable with plan and to be discharged home. Patient seen and evaluated with [employer] student. I personally interviewed and examined the patient. I was involved in all aspects of patient's orders, interpretation of results, and treatment. Patient presents secondary to chest pain over the past 3 to 4 days. Patient states that she gets a pressure pain over her chest. Although symptoms been ongoing for the past 3 to 4 days she actually denies any chest pain on arrival to the emergency room. She does have a history of quadruple bypass 1 year ago. She states that in spite of an abnormal stress test and cath she was not having any chest pain at that time. She does report similar pain to what she is experiencing now when she was evaluated and found to have reflux and GI problems. Patient states that she has been on omeprazole for the past year but did stop it a couple days ago. She stopped it because she had experienced pain and thought it might be secondary to the omeprazole. Patient sitting upright in bed no acute distress. Head and neck examination unremarkable. Heart is regular rate and rhythm. Lung sounds are clear. Abdomen is soft and nontender. Neuro exam normal. EKG is sinus bradycardia 58 bpm with no evidence of acute ischemia. Chest x-ray per my interpretation reveals no acute abnormalities. Radiology interpretation reviewed and agrees. CBC was normal white count of 5.7 with a hemoglobin of 14.9. Chemistry studies significant only for a BUN of 22 and a creatinine 1.24. This is not significantly altered from her baseline. LFTs and lipase are normal. Initial troponin is 7 with a 2-hour repeat troponin of 9. At this time patient remains pain-free. She is reassured with the workup. She will follow-up with both her PCP as well as her milk runner. Return instructi ons are given. Discharge Plan Triage Chief Complaint: Chest Pain ED Provider: Tenisha Serrano Dx/Rx/DC Orders Clinical Impression: Chest pain of unknown etiology, History of hyperlipidemia, History of hypertension, History of CAD (coronary artery disease) Instructions: ED Chest Pain, Uncertain Cause Prescriptions: No Action pregabalin [Lyrica] 100 mg capsule 100 mg PO DAILY levothyroxine 75 mcg tablet 75 mcg PO DAILY Patient Comments: TAKE 1 TABLET BY MOUTH ONCE DAILY aspirin 81 mg tablet,chewable 81 mg PO DAILY@0800 acetaminophen 500 mg Tablet 1,000 mg PO Q6H PRN (Reason: Pain) metoprolol succinate 50 mg tablet extended release 24 hr 50 mg PO DAILY Qty: 90 3RF losartan 100 mg tablet 100 mg PO DAILY Qty: 90 3RF amoxicillin 500 mg capsule 2,000 mg PO .COMPLEX Qty: 4 4RF Rx Instructions: 2,000 mg orally 1 hour prior to dental appointment; Primary Care Provider: Fiona Feliciano Referrals: Fiona Feliciano MD [Primary Care Provider] - Anurag Last MD [Med Staff - Active Staff] - Activity Restrictions/Additional Instructions: Your lab work and chest x-ray are normal. Follow-up with Dr. Last in 3 to 5 days for chest pain. Follow-up with Dr. Feliciano in 1 to 2 weeks for your concerns of GERD. Return to ED for worsening or concerning symptoms. Disposition Disposition: Home, Self Care Discharge Date/Time: 02/24/24 22:41
--- NOTE | 2024-02-24 19:48 | RAD_ITS ---
STUDY: X-RAY CHEST REASON FOR EXAM: Female, 84 years old. CHEST PAIN TECHNIQUE: Single AP portable view of the chest. COMPARISON: None. FINDINGS: Status post heart valve replacement surgery. The lungs are clear and expanded. There is no demonstrated pleural abnormality. Normal size heart. Normal mediastinum and marlena. Normal visualized pulmonary arteries. Normal visualized aortic arch and descending thoracic aorta. Normal visualized thoracic spine. Normal visualized ribs, clavicles, and shoulders. There is no demonstrated abnormality of the visualized soft tissue structures of the upper abdomen. RAD/Chest 1 View (Portable) IMPRESSION: No active disease. Electronically Signed: Arnel Lomas MD at 20:32 EDT ,
[2024-02-24 19:50] LABS: Absolute Lymphocyte Count 2.16 X10^3/uL (0.83-4.51); Absolute Neutrophil Count 2.8 X10^3/uL (2.0-7.7); Basophil# 0.04 X10^3/uL; Basophil% 0.7 % (0-1); Eosinophil# 0.09 X10^3/uL; Eosinophils% 1.6 % (0-5); Hematocrit 46.3 % (37-47); Hemoglobin 14.9 g/dL (12.0-15.0); Lymphocyte # 2.16 X10^3/ul (0.83-4.51); Mean Corp Hgb Conc 32.2 g/dL (32-36); Mean Corpuscular Hgb 30.8 pg (27.0-32.0); Mean Corpuscular Volume 95.9 fL (81-99); Mean Platelet Vol. 10.7 fl (6.2-12.0); Monocyte# 0.61 X10^3/uL; Monocyte% 10.7 % (0-10); NRBC Flagged by Analyzer 0 % (0-5); Neutrophil # 2.77 X10^3/uL (2.7-7.7); Neutrophil % 48.8 % (47-70); Platelet Count 157 K/mm3 (150-450); RBC Distribution Width CV 13.3 % (11.6-14.6); Red Blood Count 4.83 M/mm3 (4.2-5.4); White Blood Count 5.7 K/mm3 (4.4-11.0)
[2024-02-24 20:00] VITALS: BP 117/86; PULSE 56; RESP 17; O2SAT 96
[2024-02-24] MEDS: Pantoprazole Sodium 40 MG in 0.9% Normal Saline (100mL MB+) 100 ML 330 MG IV (20:02)
[2024-02-24] MEDS: Aspirin 81 MG TAB.CHEW 324 MG PO (20:02)
[2024-02-24 20:06] LABS: Anion Gap 6 (5-15); BUN 22 mg/dL (7-18); BUN/Creat Ratio 17.7 RATIO (10-20); Calcium,Total 10.6 mg/dL (8.5-10.1); Chloride 105 mmol/L (98-107); Creatinine, Serum 1.24 mg/dL (0.55-1.02); EST Glomerular Filtration Rate 44 mL/min (>60); Est Glom Filt Rate - Afr Amer 53 mL/min (>60); Estimated Creatinine Clearance 29.65 ml/min; Glucose 104 mg/dL (74-106); Lipase 71 U/L (13-75); Potassium 3.9 mmol/L (3.5-5.1); Sodium Level 141 mmol/L (136-145); Troponin-I HS (w/2H Reflex) 7 pg/mL (3.0-54.0)
[2024-02-24 20:09] LABS: AST(SGOT) 26 U/L (15-37); Alanine Aminotransfer ALT/SGPT 24 U/L (13-56); Albumin, Serum 3.8 g/dL (3.2-5.0); Alkaline Phosphatase 88 U/L (45-117); Globulin 3.9 g/dL (2.2-4.2); Protein, Total 7.7 g/dL (6.4-8.2)
[2024-02-24 21:00] VITALS: BP 163/70; PULSE 54; RESP 22; O2SAT 96
[2024-02-24 21:40] LABS: Reflex Troponin-HS? (from REC) Y
[2024-02-24 22:00] VITALS: BP 153/89; PULSE 53; RESP 20; O2SAT 93
[2024-02-24 22:04] LABS: Troponin-I HS 9 pg/mL (3.0-54.0)
[2024-02-24 22:40] VITALS: BP 148/82; PULSE 62; RESP 16; TEMP 36.6; O2SAT 98
== END 2024-02-24 22:41 | disposition home or self-care (01) ==
PROVIDERS: Emergency Provider Emergency Medicine; PCP Family Medicine; Visit Provider Emergency Medicine
DX: R07.89 Other chest pain (principal); I25.10 Atherosclerotic heart disease of native coronary artery without angina pectoris; I10 Essential (primary) hypertension; E78.00 Pure hypercholesterolemia, unspecified; Z87.891 Personal history of nicotine dependence; R06.00 Dyspnea, unspecified; Z95.1 Presence of aortocoronary bypass graft; E03.9 Hypothyroidism, unspecified; Z79.82 Long term (current) use of aspirin
CPT/HCPCS: 71045; 80048; 80076; 83690; 84484; 85025; 93005; 96365; 99284; A4216

== ENCOUNTER → 2024-03-22 | Outpatient (CLI) | payer MEDICARE, OTHER, SELFPAY ==
[2023-05-21 11:33] VITALS: BMI 23.3
[2024-03-22 09:28] LABS: AST(SGOT) 30 U/L (15-37); Alanine Aminotransfer ALT/SGPT 27 U/L (13-56); Albumin, Serum 3.6 g/dL (3.2-5.0); Alkaline Phosphatase 70 U/L (45-117); Bilirubin, Direct 0.12 mg/dL (0.00-0.30); Cholesterol 200 mg/dL (200); Globulin 3.8 g/dL (2.2-4.2); High Density Lipoprotein 47 mg/dL; Protein, Total 7.4 g/dL (6.4-8.2); Triglycerides 217 mg/dL; Very Low Density Lipoprotein 43 mg/dL (5-40)
== END | disposition home or self-care (01) ==
PROVIDERS: PCP Family Medicine; Referring Provider Internal Medicine Cardiovascular Disease; Visit Provider Internal Medicine Cardiovascular Disease
DX: E78.2 Mixed hyperlipidemia (principal)
CPT/HCPCS: 36415; 80061; 80076

== ENCOUNTER → 2024-03-28 | Outpatient (CLI) | payer MEDICARE, OTHER, SELFPAY ==
[2023-05-21 11:33] VITALS: BMI 23.3
[2024-03-28 18:01] LABS: Protein, Urine (Random) < 6.0 mg/dL (<11.9); Protein:Creat Ratio 127 mg/g CRE (0-200)
[2024-03-28 18:16] LABS: AST(SGOT) 26 U/L (15-37); Alanine Aminotransfer ALT/SGPT 24 U/L (13-56); Anion Gap 6 (5-15); BUN 24 mg/dL (7-18); Calcium,Total 8.9 mg/dL (8.5-10.1); Chloride 107 mmol/L (98-107); Cholesterol 212 mg/dL (200); Creatinine, Serum 1.33 mg/dL (0.55-1.02); EST Glomerular Filtration Rate 40 mL/min (>60); Est Glom Filt Rate - Afr Amer 49 mL/min (>60); Glucose 119 mg/dL (74-106); High Density Lipoprotein 43 mg/dL; Sodium Level 140 mmol/L (136-145); T4 Total, Thyroxin 9.1 ug/dL (4.8-13.9); Thyroid Stim Hormone (TSH) 2.01 uIU/mL (0.358-3.74); Triglycerides 229 mg/dL; Very Low Density Lipoprotein 46 mg/dL (5-40)
== END | disposition home or self-care (01) ==
LOC: MFPLAB 16:52
PROVIDERS: PCP Family Medicine; Visit Provider Family Medicine
DX: E78.5 Hyperlipidemia, unspecified (principal); E03.9 Hypothyroidism, unspecified; I10 Essential (primary) hypertension
CPT/HCPCS: 36415; 80048; 80061; 82570; 84156; 84436; 84443; 84450; 84460

== ENCOUNTER → 2024-04-18 | Outpatient (CLI) | payer MEDICARE, OTHER, SELFPAY ==
[2023-05-21 11:33] VITALS: BMI 23.3
--- NOTE | 2024-04-18 09:55 | ECHOD_ITS ---
Reason For Study: Cardiomegaly Procedure This was a 2D Doppler, Color Flow transthoracic echocardiogram. Exam performed in department. Left Ventricle Normal LV size. Left ventricular systolic function is normal. The left ventricular ejection fraction is 55 %. Stage 1 diastolic dysfunction. No regional wall motion abnormalities noted. Right Ventricle Normal RV size. Normal systolic function. Atria Normal left atrium. Normal right atrium. Mitral Valve There is mild to moderate mitral annular calcification. Tricuspid Valve Normal tricuspid valve. Mild (1+) tricuspid valve insufficiency. Pulmonary artery systolic pressure is 28 mmHg. Aortic Valve Peak aortic valve gradient 21 mmHg. Mean aortic valve gradient 12 mmHg. Bioprosthetic aortic valve. Great Vessels Normal aortic root. Pericardium/Pleural No pericardial effusion. MMode/2D Measurements & Calculations LVIDd: 3.9 cm IVSd: 0.97 cm LVOT diam: 2.0 cm LVIDs: 2.6 cm LVPWd: 1.1 cm LVOT area: 3.1 cm2 FS: 33.1 % Ao root diam: 3.1 cm LAV(MOD-bp): 42.0 ml LA A4 area: 18.0 cm2 LA dimension: 4.3 cm LAV(MOD-bp) Indexed: 24.9 ml/m2 LAV(MOD-sp2): 37.5 ml LAV(MOD-sp4): 46.1 ml RA A4 area: 13.8 cm2 TAPSE: 1.5 cm Time Measurements MV dec time: 0.27 sec Doppler Measurements & Calculations MV E max claude: 55.5 cm/sec Lat Peak E' Claude: 6.1 cm/sec Med Peak E' Claude: 4.4 cm/sec MV A max claude: 101.3 cm/sec E/E' lat: 9.1 E/E' med: 12.8 MV E/A: 0.55 MV V2 max: 109.0 cm/sec MV P1/2t max claude: 71.2 cm/sec Ao V2 max: 244.6 cm/sec MV max P.8 mmHg MV P1/2t: 106.1 msec Ao max P.2 mmHg MV V2 mean: 53.2 cm/sec MV dec slope: 196.5 cm/sec2 Ao V2 mean: 165.6 cm/sec MV mean P.4 mmHg MVA(P1/2t): 2.1 cm2 Ao mean P.4 mmHg MV V2 VTI: 31.8 cm Ao V2 VTI: 62.0 cm MVA(VTI): 2.1 cm2 AV (velocity ratio): 0.35 TAMIE(I,D): 1.1 cm2 TAMIE(V,D): 1.2 cm2 LV V1 max: 91.5 cm/sec SV(LVOT): 68.1 ml PA V2 max: 86.7 cm/sec LV V1 max P.4 mmHg PA V2 mean: 56.4 cm/sec LV V1 mean P.0 mmHg LV V1 mean: 66.7 cm/sec LV V1 VTI: 21.9 cm TR max claude: 248.8 cm/sec TR max P.8 mmHg ECHO/Echo Complete Interpretation Summary Normal LV size. Left ventricular systolic function is normal. The left ventricular ejection fraction is 55 %. Stage 1 diastolic dysfunction. Bioprosthetic aortic valve. Mean aortic valve gradient 12 mmHg. Ordering Physician: Anthony Kim Referring Physician: Fiona Feliciano M.D. Performed By: Mike Clifford RCS
== END | disposition home or self-care (01) ==
LOC: CVS 09:49
PROVIDERS: PCP Family Medicine; Referring Provider Internal Medicine Cardiovascular Disease; Visit Provider Internal Medicine Cardiovascular Disease
DX: I51.7 Cardiomegaly (principal)
CPT/HCPCS: 93306

== ENCOUNTER → 2024-09-13 | Outpatient (CLI) | payer MEDICARE, OTHER, SELFPAY ==
[2023-05-21 11:33] VITALS: BMI 23.3
== END | disposition home or self-care (01) ==
LOC: MFPLAB 13:47
PROVIDERS: PCP Family Medicine; Referring Provider Family Medicine; Visit Provider Family Medicine
DX: N39.0 Urinary tract infection, site not specified (principal)
CPT/HCPCS: 87086; 87088

== ENCOUNTER → 2025-04-03 | Outpatient (CLI) | payer MEDICARE, OTHER, SELFPAY ==
[2023-05-21 11:33] VITALS: BMI 23.3
[2025-04-03 12:19] LABS: Absolute Lymphocyte Count 1.86 X10^3/uL (0.83-4.51); Absolute Neutrophil Count 2.8 X10^3/uL (2.0-7.7); Basophil# 0.06 X10^3/uL; Basophil% 1.1 % (0-1); Eosinophils% 3.7 % (0-5); Hematocrit 44.6 % (37-47); Hemoglobin 14.1 g/dL (12.0-15.0); Lymphocyte # 1.86 X10^3/ul (0.83-4.51); Lymphocyte % 34.1 % (19-41); Mean Corp Hgb Conc 31.6 g/dL (32-36); Mean Corpuscular Hgb 30.8 pg (27.0-32.0); Mean Corpuscular Volume 97.4 fL (81-99); Mean Platelet Vol. 10.6 fl (6.2-12.0); Monocyte# 0.56 X10^3/uL; Monocyte% 10.3 % (0-10); NRBC Flagged by Analyzer 0 % (0-5); Neutrophil # 2.76 X10^3/uL (2.7-7.7); Neutrophil % 50.6 % (47-70); Platelet Count 180 K/mm3 (150-450); RBC Distribution Width CV 13.6 % (11.6-14.6); RBC Distribution Width SD 48.6 fl (35.1-43.9); Red Blood Count 4.58 M/mm3 (4.2-5.4); White Blood Count 5.5 K/mm3 (4.4-11.0)
[2025-04-03 12:56] LABS: Hemoglobin A1c 6.6 % (<=5.6)
[2025-04-03 13:03] LABS: Anion Gap 11 (5-15); BUN 30 mg/dL (4-19); BUN/Creat Ratio 20.4 RATIO (10-20); Calcium,Total 9.3 mg/dL (7.6-11.0); Carbon Dioxide 24.5 mmol/L (21.0-32.0); Chloride 105 mmol/L (98-108); Cholesterol 186 mg/dL (<=200); Creatinine, Serum 1.49 mg/dL (0.70-1.20); EST Glomerular Filtration Rate 34 (>60); Glucose 125 mg/dL (70-99); High Density Lipoprotein 44 mg/dL; Low Density Lipoprotein Calc. 106 mg/dL; Potassium 4.9 mmol/L (3.3-5.1); Sodium Level 141 mmol/L (133-145); T4 Total, Thyroxin 7.7 ug/dL (4.8-13.9); Triglycerides 183 mg/dL; Very Low Density Lipoprotein 37 mg/dL (5-40); Vitamin D,25 Hydroxy 19.9 ng/mL (30-100); cholesterol:hdl ratio screen 4.27
[2025-04-03 13:32] LABS: Microalbumin,Random Urine < 12.0 mg/L (NO RANGE EST.); Microalbumin:Creatinine Ratio UNABLE TO CALCULATE mg/g CRE
== END | disposition home or self-care (01) ==
LOC: MFPLAB 09:47
DX: Z00.00 Encounter for general adult medical examination without abnormal findings (principal)
CPT/HCPCS: 36415; 80048; 80061; 82043; 82306; 82570; 83036; 84436; 84443; 85025

== ENCOUNTER → 2025-07-18 | Outpatient (CLI) | payer MEDICARE, OTHER, SELFPAY ==
[2023-05-21 11:33] VITALS: BMI 23.3
--- NOTE | 2025-07-18 10:05 | ECHOD_ITS ---
Reason For Study Reason For Study: VALVE REPLACEMENT EVAL Procedure This was a 2D Doppler, Color Flow transthoracic echocardiogram. Exam performed in department. Left Ventricle Normal LV size. Mild concentric left ventricular hypertrophy. The left ventricular ejection fraction is 65 %. Stage 1 diastolic dysfunction. Right Ventricle Normal right ventricle. Atria The left atrium is moderately enlarged. Normal right atrium. Mitral Valve Moderate mitral annular calcification. Mild (1+) mitral valve insufficiency. Tricuspid Valve Mild tricuspid valve insufficiency. Normal pulmonary artery pressure. Aortic Valve Stable appearing bioprosthetic aortic valve. Mean peak gradient 14 mmHg which is not significantly different from study done last year. Pulmonic Valve Normal pulmonic valve. Great Vessels Normal sized aortic root. Pericardium/Pleural No pericardial effusion. MMode/2D Measurements & Calculations LVIDd: 3.7 cm IVSd: 1.2 cm LVOT diam: 2.0 cm LVIDs: 2.3 cm LVPWd: 1.2 cm LVOT area: 3.1 cm2 RVDd: 2.6 cm FS: 38.5 % Ao root diam: 3.3 cm asc Aorta Diam: 3.2 cm LAV(MOD- bp): 51.6 ml LAV(MOD- bp) Indexed: 30.6 ml/m2 LAV(MOD- sp2): 49.4 ml LAV(MOD- sp4): 53.2 ml SV(MOD- sp4): 34.8 ml LVAd ap4: 19.7 cm2 LVAd ap2: 14.9 cm2 LVLd ap4: 6.4 cm LVLd ap2: 6.3 cm SI(MOD- sp4): 20.6 ml/m2 EDV(MOD-sp4): 50.2 ml EDV(MOD-sp2): 30.3 ml EDV(sp4-el): 51.5 ml EDV(sp2-el): 30.1 ml LVAs ap4: 9.9 cm2 LVAs ap2: 7.7 cm2 LVLs ap4: 5.7 cm LVLs ap2: 5.4 cm ESV(MOD-sp4): 15.4 ml ESV(MOD-sp2): 9.7 ml ESV(sp4-el): 14.7 ml ESV(sp2-el): 9.2 ml EF(MOD-sp4): 69.3 % EF(MOD-sp2): 67.9 % EF(sp4-el): 71.4 % SV(MOD-sp2): 20.6 ml SV(sp4-el): 36.8 ml LA A4 area: 18.4 cm2 SI(MOD-sp2): 12.2 ml/m2 LA dimension(2D): 5.0 cm TAPSE: 1.8 cm Time Measurements MV dec time: 0.20 sec Doppler Measurements & Calculations MV E max claude: 56.3 cm/sec Lat Peak E' Claude: 6.6 cm/sec Med Peak E' Claude: 5.1 cm/sec MV A max claude: 89.6 cm/sec E/E' lat: 8.5 E/E' med: 11.0 MV E/A: 0.63 MV V2 max: 105.6 cm/sec MV P1/2t max claude: 66.4 cm/sec Ao V2 max: 237.0 cm/sec MV max P.5 mmHg MV P1/2t: 70.7 msec Ao max P.5 mmHg MV V2 mean: 50.0 cm/sec Ao V2 mean: 178.4 cm/sec MV mean P.2 mmHg MV dec slope: 275.2 cm/sec2 Ao mean P.9 mmHg MV V2 VTI: 29.6 cm MVA(P1/2t): 3.1 cm2 Ao V2 VTI: 61.1 cm AV (velocity ratio): 0.39 MVA(VTI): 2.5 cm2 TAMIE(I,D): 1.2 cm2 TAMIE(V,D): 1.1 cm2 LV V1 max: 87.0 cm/sec SV(LVOT): 74.2 ml PA V2 max: 81.0 cm/sec LV V1 max P.0 mmHg PA V2 mean: 57.8 cm/sec LV V1 mean P.9 mmHg LV V1 mean: 66.7 cm/sec LV V1 VTI: 24.0 cm TR max claude: 220.7 cm/sec TR max P.5 mmHg ECHO/Echo Complete Interpretation Summary Mild concentric left ventricular hypertrophy. The left ventricular ejection fraction is 65 %. Stage 1 diastolic dysfunction. The left atrium is moderately enlarged. Moderate mitral annular calcification. Mild (1+) mitral valve insufficiency. Mild tricuspid valve insufficiency. Stable appearing bioprosthetic aortic valve. Mean peak gradient 14 mmHg which i s not significantly different from study done last year. Ordering Physician: Galindo Hampton Referring Physician: Jasson Craig Performed By: Harini Vo RDCS, RVT
== END | disposition home or self-care (01) ==
LOC: CVS 10:01
PROVIDERS: Referring Provider Nurse Practitioner Family; Visit Provider Nurse Practitioner Family
DX: Z95.3 Presence of xenogenic heart valve (principal)
CPT/HCPCS: 93306

== ENCOUNTER → 2025-10-11 | Outpatient (CLI) | payer SELFPAY ==
[2023-05-21 11:33] VITALS: BMI 23.3
[2025-10-11 12:04] LABS: SERUM TEARS COLLECTION SPECIMEN PROCESSED
== END | disposition home or self-care (01) ==
LOC: LAB 09:58
PROVIDERS: Referring Provider Ophthalmology; Visit Provider Ophthalmology
DX: H04.123 Dry eye syndrome of bilateral lacrimal glands (principal)